=== PATIENT | female | born 1965 | race Caucasian/White ===

== ENCOUNTER 2016-09-20 01:17 | Inpatient (IN) | payer MEDICAID ==
[~2016-09-20] VITALS: Ht 154.9 cm; Wt 46.7 kg
[2016-09-20] VITALS (26 sets, daily range): BP systolic 86–130; BP diastolic 60–86; Ht 154.9 cm; Wt 46.7 kg
[~2016-09-20 01:17] MED LIST: BENTYL10 MG PO; CARAFATE1 G PO; DEPAKOTE500 MG PO; FLEXERIL10 MG PO; LEVAQUIN750 MG; LEVAQUIN750 MG PO; MOTRIN600 MG PO; NORCO 7.5-3251 EACH PO; TOPAMAX100 MG PO; TYLENOL 325 MG325 MG PO; ZANTAC150 MG PO
[2016-09-20 01:43] LABS: APPEARANCE CLEAR (CLEAR); BILIRUBIN NEGATIVE (NEGATIVE); COLOR YELLOW (YELLOW); GLUCOSE NEGATIVE (NEGATIVE); KETONE NEGATIVE (NEGATIVE); LEUKOCYTE ESTERASE NEGATIVE (NEGATIVE); NITRITE NEGATIVE (NEGATIVE); PROTEIN NEGATIVE (NEGATIVE); SPECIFIC GRAVITY 1.015 (1.005-1.020); UROBILINOGEN NORMAL (NORMAL)
[2016-09-20 01:50] LABS: UDS - AMPHET NEGATIVE QUAL (NEGATIVE); UDS - BARB NEGATIVE QUAL (NEGATIVE); UDS - BENZO NEGATIVE QUAL (NEGATIVE); UDS - COCAINE NEGATIVE QUAL (NEGATIVE); UDS - METH NEGATIVE QUAL (NEGATIVE); UDS - OPIATE NEGATIVE QUAL (NEGATIVE); UDS - PCP NEGATIVE QUAL (NEGATIVE); UDS - THC NEGATIVE QUAL (NEGATIVE)
[2016-09-20 02:32] LABS: BASOPHILS 0.2 % (0.0-2.0); EOSINOPHILS 1.8 % (0-7); HEMATOCRIT 40.1 % (36.0-48.0); HEMOGLOBIN 13.5 g/dL (12-16); IMMATURE GRANULOCYTES 0.2 % (0-5); LYMPHOCYTES 37.8 % (15-50); MCH 31.8 pg (26.0-34.0); MCHC 33.7 g/dL (31.0-37.0); MCV 94.4 fL (80.0-100.0); MEAN PLATELET VOLUME 10.7 fL (7.4-10.4); MONOCYTES 5.6 % (2-11); NEUTROPHILS 54.4 % (40-80); PLATELET COUNT 239 10x3/uL (130-400); RBC 4.25 10x6/uL (4.00-5.40); WBC 12.4 10x3/uL (4.8-10.8)
[2016-09-20 02:40] LABS: ALBUMIN 4.1 g/dL (3.4-5.0); ALKALINE PHOSPHATASE 108 U/L (46-116); ALT (SGPT) 46 U/L (10-68); BILIRUBIN - TOTAL 0.38 mg/dL (0.2-1.3); CALC OSMOLALITY 283 mosm/kg (275-300); CALCIUM 8.6 mg/dL (8.5-10.1); CARBON DIOXIDE 29.1 mmol/L (21.0-32.0); CHLORIDE - SERUM 100 mmol/L (98-107); CREATININE - SERUM 0.8 mg/dL (0.6-1.3); POTASSIUM - SERUM 3.4 mmol/L (3.5-5.1); PROTEIN - SERUM 8.3 g/dL (6.4-8.2); SODIUM 140 mmol/L (136-145); UREA NITROGEN 19 mg/dL (7-18); eGFR NON AFRICAN AMERICAN 80 mL/min (90-120)
[2016-09-20 02:42] LABS: GLUCOSE 150 mg/dL (74-106)
[2016-09-20 02:54] LABS: AMYLASE - SERUM 71 U/L (25-115); CREATINE KINASE 118 UL (21-215); LIPASE 184 U/L (73-393); PRO BNP 44 pg/mL (0-125); TROPONIN-I < 0.017 ng/mL (0.000-0.060)
[2016-09-20 02:55] LABS: PHENYTOIN (DILANTIN) 60.9 ug/mL (10.0-20.0)
--- NOTE | 2016-09-20 04:35 | NUR ---
REC'D TO ROOM 2302 FROM ER VIA STRETCHER. PT CONFUSED AND RESTLESS. SPEECH DIFFICULT TO UNDERSTAND, SEEMS TO BE HAVING HALLUCINATION, REACHING AT THINGS IN AIR. ADMITTED WITH DILANTIN TOXICITY - POISON CONTROL UPDATED, WILL REPEAT LEVELS Q4 HR. CM - NSR. POX 97% ON RA. ALARMS ON, C/L IN REACH.
--- NOTE | 2016-09-20 04:46 | NUR ---
UNABLE TO COMPLETE ADMIN HISTORY, PT NOT ANSWERING QUESTIONS, ONLY FOLLOWS FEW SIMPLE COMMANDS. NO FAMILY PRESENT AT THIS TIME. VSS. NO SIGN OF DISTRESS. FALL PRECAUTIONS INITIATED. NO VALUABLES, TSHIRT ON. ALARMS ON .
--- NOTE | 2016-09-20 05:01 | NUR ---
PT RESTING QUIETLY AT THIS TIME, NO SIGN OF DISTRESS.
--- NOTE | 2016-09-20 06:36 | NUR ---
PT SAID SHE NEEDED TO "PEE". ON BED MCINTYRE, NO UOP. VSS. NO SIGN OF DISTRESS. LAB PENDING.
--- NOTE | 2016-09-20 07:00 | NUR ---
Received report and assumed care of patient. Patient is currently in bed, restless. Speech is garbled. Unable to follow commands at this time. Vitals are stable. Sinus on CM. Right hand PIV infusing NS @ 100. See shift assessment flowsheet for all findings.
--- NOTE | 2016-09-20 08:07 | NUR ---
Spoke to Mehrdad from poison control. Update on dilantin level and patients condition.
--- NOTE | 2016-09-20 08:16 | NUR ---
here to see patient. Patient enable to communicate at this time. Speech remains garbled.
--- NOTE | 2016-09-20 09:28 | NUR ---
Is the patient Alert and Oriented? No 0 * How many steps to enter\exit or inside your home? 2 0 * PCP DR. VELAZCO 0 * Pharmacy [facility] AND [facility] * Preadmission Environment Home with Family 0 * ADLs Independent 0 * Equipment Cane Rolling Walker 0 * Other Equipment PATIENT HAS CANE AND WALKER BUT DOES NOT USE THEM 0 * List name and contact numbers for known caregivers / representatives who currently or will assist patient after discharge: SPOUSE: MITUL REDMOND [phone] FATHER IN LAW: GURVINDER REDMOND [phone] 0 * Community resources currently utilized None 0 * Additional services required to return to the preadmission environment? No 0 * Can the patient safely return to the preadmission environment? Yes 0 * Has this patient been hospitalized within the prior 30 days at any hospital? No 0 Grand Total: 0 PATIENT IS CONFUSED AND HER SPEECH IS NOT UNDERSTANDABLE. PATIENT'S SPOUSE, MITUL REDMOND IS HERE AND ANSWERING QUESTIONS. HE STATES SHE WAS LIVING AT HOME WITH HIM PRIOR TO ADMIT. HER PCP IS DR. VELAZCO. SHE GETS HER MEDS FROM [facility] AT [facility]. HER FATHER IN LAW, GURVINDER, IS AT THE BEDSIDE AND WILL BE AVAILABLE TO DRIVE HER HOME AT DISCHARGE. SHE HAS A WALKER AND CANE BUT DOES NOT USE THEM. PATIENTS SPOUSE STATES SHE HAD HOME HEALTH CARE ABOUT 4 YRS AGO BUT DOES NOT RECALL THE NAME OF THE AGENCY. THERE ARE 2 STEPS TO ENTER HER HOME.
--- NOTE | 2016-09-20 10:03 | NUR ---
Patients here, took patients debit card from belongings. Update given on patients condition. Admission history completed.
--- NOTE | 2016-09-20 11:26 | NUR ---
Patients speech remains garbled. Patient not following commands at this time.
--- NOTE | 2016-09-20 12:43 | NUR ---
GARY MORRIS GAVE PATIENT BATH. PT RECONNECTED TO . SINUS RHTYHM RATE OF 83. PT CAN FOLLOW COMMANDS AT THIS TIME. SPEECH IS GARBLED, ORIENTED TO SELF. REORIENTED TO TIME, PLACE AND SITUATION.
--- NOTE | 2016-09-20 13:43 | NUR ---
Critical Pheno level from lab called, trending back down.
--- NOTE | 2016-09-20 15:55 | NUR ---
Patient requesting water, small sips allowed. Tolerating well.
--- NOTE | 2016-09-20 17:44 | NUR ---
Patients in room. Patient is more coherent at this time. Speech is still garbled. Oriented to person and time. Unable to relate situation. Pt requesting food and drink. Will request from Maria Del Carmen when he rounds.
--- NOTE | 2016-09-20 20:00 | NUR ---
REPORT RECEIVED AND CARE ASSUMED. JUST AWAKENED, SHE IS CONFUSED, SPEECH GARBLED, ABLE TO LAY DOWN WHEN ASKED TO, BUT DOESN'T STAY BUT BRIEFLY. IV IN RIGHT AC PATENT WITH NS @ 125CC/HR/ SEE ASSESSMENT FLOW SHEET FOR ALL DETAILS.
--- NOTE | 2016-09-20 21:59 | NUR ---
ASSISTED ON BEDPAN- VOIDED 250 CC YELLOW URINE.
--- NOTE | 2016-09-20 23:00 | NUR ---
CRITICAL DILANTIN LEVEL=57.7 TRENDING UP SLIGHTLY FROM EARLIER ONE.
[2016-09-21] VITALS (23 sets, daily range): BP systolic 86–115; BP diastolic 46–92
--- NOTE | 2016-09-21 02:46 | NUR ---
RESTING QUIETLY IN BED WITH EYES CLOSED. MO DISTRES NOTED.
--- NOTE | 2016-09-21 03:30 | NUR ---
REQUESTING TO GO TO BATHROOM. ASSISTED ON BEDPAN. UNABLE TO VOID.
[2016-09-21 04:09] LABS: BASOPHILS 0.2 % (0.0-2.0); EOSINOPHILS 2.1 % (0-7); HEMATOCRIT 38.1 % (36.0-48.0); HEMOGLOBIN 12.6 g/dL (12-16); IMMATURE GRANULOCYTES 0.2 % (0-5); LYMPHOCYTES 45.9 % (15-50); MCH 31.3 pg (26.0-34.0); MCHC 33.1 g/dL (31.0-37.0); MCV 94.8 fL (80.0-100.0); MEAN PLATELET VOLUME 11.1 fL (7.4-10.4); MONOCYTES 6.3 % (2-11); NEUTROPHILS 45.3 % (40-80); PLATELET COUNT 214 10x3/uL (130-400); RBC 4.02 10x6/uL (4.00-5.40); RDW 14.2 % (11.5-14.5); WBC 9.5 10x3/uL (4.8-10.8)
[2016-09-21 04:36] LABS: ALBUMIN 3.5 g/dL (3.4-5.0); ALKALINE PHOSPHATASE 97 U/L (46-116); ALT (SGPT) 42 U/L (10-68); CALCIUM 8.2 mg/dL (8.5-10.1); CARBON DIOXIDE 25.4 mmol/L (21.0-32.0); CHLORIDE - SERUM 102 mmol/L (98-107); CREATININE - SERUM 0.7 mg/dL (0.6-1.3); POTASSIUM - SERUM 3.5 mmol/L (3.5-5.1); PROTEIN - SERUM 7.3 g/dL (6.4-8.2); SODIUM 137 mmol/L (136-145); eGFR NON AFRICAN AMERICAN > 90 mL/min (90-120)
[2016-09-21 04:55] LABS: CALC OSMOLALITY 273 mosm/kg (275-300); GLUCOSE 99 mg/dL (74-106); UREA NITROGEN 12 mg/dL (7-18)
[2016-09-21 04:56] LABS: PHENYTOIN (DILANTIN) 45.8 ug/mL (10.0-20.0)
--- NOTE | 2016-09-21 04:59 | NUR ---
CRITICAL PHENYTOIN LEVEL CALLED FROM LAB= 45.8. TRENDING DOWN FROM PREVIOUS.
--- NOTE | 2016-09-21 08:26 | NUR ---
RESTING IN BED AT THIS TIME. NO ACUTE DISTRESS NOTED. RESPIRATIONS AT STEADY AND UNLABORED RATE. WILL CONTINUE PLAN OF CARE.
--- NOTE | 2016-09-21 11:03 | NUR ---
UP IN BED AWAKE AT THIS TIME. DENIES ANY NEEDS. NOTED PT IS CONFUSED. FREQUENT REORIENTATION PROVIDED. WILL CONTINUE PLAN OF CARE.
--- NOTE | 2016-09-21 13:31 | NUR ---
IV TO RIGHT FOREARM INFILTRATED, DC. NEW IV PLACED TO LEFT FOREARM X 1 ATTEMPT, 20G, FLUSHES WELL. NO ACUTE DISTRESS NOTED. WILL CONTINUE PLAN OF CARE.
--- NOTE | 2016-09-21 15:14 | NUR ---
NOTED PT DILANTIN LEVEL HAS INCREASED SINCE 1000 LAB DRAW, PT ROOM ASSESSED AT THIS TIME, LOOKED THROUGH ITEMS WITH ASSIST AND SUPERVISION FROM ANOTHER NURSE. DID NOT FIND ANY MEDS WITHIN ITEMS. WILL CALL TO NOTIFY PHYSICIAN AT THIS TIME OF INCREASED LAB LEVELS.
--- NOTE | 2016-09-21 15:29 | NUR ---
CALLED DR RODRIGUEZ CELL TO NOTIFY OF INCREASING DILANTIN LEVEL FOR PT WITH NO EXTERNAL REASONING FOR WHY IT HAS INCREASED. NOTED NEW ORDER TO CHANGE DILANTIN CHECK TO DAILY INSTEAD OF Q4H STATING THE DILANTIN NEEDS TO METABOLIZE FROM HER SYSTEM. WILL CHANGE LAB ORDERS AT THIS TIME. WILL CONTINUE PLAN FO CARE.
--- NOTE | 2016-09-21 15:47 | NUR ---
NOTED HEARD MOVEMENT IN ROOM AT THIS TIME, WALKED INTO ROOM TO ASSESS SITUATION AND NOTED PT WAS GETTING SELF UP FROM FLOOR WITH ASSIST FROM SIDE RAILING FROM BED. WHEN ASKED PT WHAT HAD HAPPENED SHE STATED SHE WAS TRYING TO GET TO THE BEDSIDE TOILET IN ROOM. NOTED THERE WAS NO BEDSIDE TOILET IN ROOM. NOTED THIS NURSE HAS BEEN DOING FREQUENT NEURO CHECKS FOR PT IN RELATION TO ADMISSION ORDERS. NOTED THERE IS NO CHANGE IN NEURO STATUS FOR PT. PT IS STILL EXPERIENCING CONFUSION REQUIRING FREQUENT REORIENTATION. NO CHANGE IN ORIENTATION. NOTED PT HAS LACERATION TO LEFT SIDE OF FOREHEAD. SITE CLEANED AND DRESSINGS APPLIED TO SITE. DR RODRIGUEZ NOTIFIED AND IS ON FLOOR PLACING ORDERS AT THIS TIME. ALSO NOTED PT HAS BRUISE TO UPPER MID SECTION OF BACK TO THE RIGHT SIDE OF SPINE. PT IS COMPLAINING OF BACK DISCOMFORT. DR RODRIGUEZ NOTIFIED. PROCESS EXPERT NOTIFIED. CHARGE NURSE NOTIFIED. PT , MITUL CALLED AND NOTIFIED AT THIS TIME. BED ALARM WAS ON DURING INCIDENT HOWEVER DID NOT GO OFF, SETTINGS CHANGED TO BED ALARM AND ALARM IS NOW FUNCTIONING PROPERLY. NONSKID SOCKS IN PLACE WELL CALL LIGHT IN REACH DURING TIME OF INCIDENT. WILL CONTINUE TO OBSERVE.
--- NOTE | 2016-09-21 17:18 | NUR ---
PT AT BEDSIDE AT THIS TIME. UPDATE GIVEN.
--- NOTE | 2016-09-21 18:00 | NUR ---
LEFT FLOOR AT THIS TIME VIA BED ACCOMPANIED BY HOSPITAL STAFF FOR CT. NO ACUTE DISTRESS NOTED. WILL CONTINUE PLAN OF CARE.
--- NOTE | 2016-09-21 18:25 | NUR ---
RETURNED AT THIS TIME FROM CT VIA BED ACCOMPANIED BY HOSPITAL STAFF. NO ACUTE DISTRESS NOTED. WILL CONTINUE PLAN OF CARE.
--- NOTE | 2016-09-21 19:45 | NUR ---
REPORT RECEIVED AND CARE ASSUMED. AWAKE AND ALERT, BUT STILL CONFUSED TO PLACE, TIME AND SITUATION. APPLIED ANOTHER DRESSING TO ABRASION ABOVE LEFT EYE. PATIENT HAD REMOVED PREVIOUS ONE. IV PATENT IN LEFT FOREARM WITH NS AT 125CC/HR. REQUESTING BEDPAN TO URINATE. SEE ASSESSMENT FLOW SHEET FOR FURTHER DETAILS. WILL CONTINUE TO MONITOR CLOSELY.
--- NOTE | 2016-09-21 22:15 | NUR ---
PATIENT CONSTANTLY TRYING TO GET OUT OF BED, WANTING TO GO SMOKE.
[2016-09-22] VITALS (20 sets, daily range): BP systolic 91–155; BP diastolic 63–90
--- NOTE | 2016-09-22 04:45 | NUR ---
COMPLETE BEDBATH GIVEN. SHE HAS BEEN VERY RESTLESS TONIGHT. WANTS TO GET OUT OF BED AND HELP THE STAFF WORK.
[2016-09-22 04:59] LABS: BASOPHILS 0.1 % (0.0-2.0); HEMATOCRIT 36.5 % (36.0-48.0); HEMOGLOBIN 12.4 g/dL (12-16); IMMATURE GRANULOCYTES 0.2 % (0-5); LYMPHOCYTES 45.8 % (15-50); MCH 31.7 pg (26.0-34.0); MCV 93.4 fL (80.0-100.0); MEAN PLATELET VOLUME 10.9 fL (7.4-10.4); NEUTROPHILS 44.9 % (40-80); PLATELET COUNT 201 10x3/uL (130-400); RBC 3.91 10x6/uL (4.00-5.40); WBC 8.7 10x3/uL (4.8-10.8)
--- NOTE | 2016-09-22 05:10 | NUR ---
AM LAB DRAWN PER TECH. ASSISTED ON BEDPAN NUMEROUS TIMES TONIGHT.
[2016-09-22 05:23] LABS: ALBUMIN 3.6 g/dL (3.4-5.0); ALKALINE PHOSPHATASE 90 U/L (46-116); ALT (SGPT) 38 U/L (10-68); BILIRUBIN - TOTAL 0.62 mg/dL (0.2-1.3); CALC OSMOLALITY 275 mosm/kg (275-300); CALCIUM 8.3 mg/dL (8.5-10.1); CHLORIDE - SERUM 105 mmol/L (98-107); CREATININE - SERUM 0.6 mg/dL (0.6-1.3); GLUCOSE 97 mg/dL (74-106); POTASSIUM - SERUM 3.4 mmol/L (3.5-5.1); PROTEIN - SERUM 7.5 g/dL (6.4-8.2); SODIUM 140 mmol/L (136-145); UREA NITROGEN 5 mg/dL (7-18); eGFR NON AFRICAN AMERICAN > 90 mL/min (90-120)
[2016-09-22 05:24] LABS: PHENYTOIN (DILANTIN) 51.6 ug/mL (10.0-20.0)
--- NOTE | 2016-09-22 07:30 | NUR ---
PT NOTED PULLING AT TUBING AND DRESSINGS, BILATERAL SOFT WRIST RESTRAINTS PLACED AT THIS TIME FOR PT SAFETY.
--- NOTE | 2016-09-22 08:54 | NUR ---
INCREASE IN CONFUSION NOTED, PT STATED SHE COULD SEE HER AND SHE HAD BEEN WAITING FOR HIM TO PICK HER UP SO THEY COULD GO SHOPPING. PT WAS NOT IN ROOM OR IN HOSPITAL AT TIME AND LOCATION WHICH SHE WAS REFERRING TO WHERE HER WAS STANDING; THERE WAS NO PERSON THERE. REORIENTATION PROTIVED, PT REFUSED TO BELIEVE SHE DID NOT SEE HER . ALSO AT THAT TIME NOTED PT STATED SHE SAW A RED VAN AND WAS WANTING TO SEE WHO WAS DRIVING IT. REORIENTATION PROVIDED AGAIN, PT REFUSED TO BELIEVE REORIENTATION. WILL CONTINUE TO OBSERVE.
--- NOTE | 2016-09-22 10:02 | NUR ---
LOUISE PLACED AT THIS TIME PER ORDERS, 18F. NOTED URINE IS CLEAR YELLOW. SECURED TO RIGHT LEG. WILL CONTINUE PLAN OF CARE.
--- NOTE | 2016-09-22 12:07 | NUR ---
LYING IN BED RESTING AT THIS TIME. NO ACUTE DISTRESS NOTED. STILL NOTED CONFUSED. REORIENTATION PROVIDED FREQUENTLY. WILL CONTINUE PLAN FO CARE.
--- NOTE | 2016-09-22 14:09 | NUR ---
PT PULLED LOUISE OUT ALTHOUGH BILATERAL SOFT WRIST RESTRAINTS WERE SECURED IN PLACE. WILL REPLACE LOUISE AT THIS TIME. WILL CONTINUE PLAN OF CARE.
--- NOTE | 2016-09-22 14:16 | NUR ---
LOUISE REPLACED AT THIS TIME. URINE CLEAR YELLOW. SECURED TO RIGHT LEG. NO ACUTE DISTRESS NOTED. WILL CONTINUE PLAN OF CARE.
--- NOTE | 2016-09-22 14:34 | NUR ---
PT REMOVED SCDS. WHILE REPLACING SCDS PT BECAME AGGRESSIVE AND COMBATIVE. KICKING AT STAFF AND YELLING AT STAFF. ATTEMPTED TO CALM PT DOWN. PRN ATIVAN ADMIN AT THIS TIME. PT NOW RESTING QUIETLY, RESPIRATIONS STEADY AND UNLABORED. WILL CONTINUE PLAN OF CARE.
--- NOTE | 2016-09-22 15:21 | NUR ---
PT AT BEDSIDE, UPDATE GIVEN. NO ACUTE DISTRESS NOTED. WILL CONTINUE PLAN FO CARE.
--- NOTE | 2016-09-22 17:41 | NUR ---
AWAKE IN BED AT THIS TIME. STILL RESTLESS. REORIENTATION PROVIDED FREQUENTLY. WILL CONTINUE PLAN OF CARE.
--- NOTE | 2016-09-22 17:46 | NUR ---
SPOKE WITH PT . PASSCODE SETUP STEVE.
--- NOTE | 2016-09-22 18:20 | NUR ---
NOTED ALTHOUGH BILATERAL SOFT WRIST RESTRAINTS WERE SECURED, PT PULLED LOUISE OUT, BULB INTACT. WHEN ASKED PT WHAT HAD HAPPENED SHE STATED "I DIDN'T DO ANYTHING" REORIENTATION PROVIDED. WILL CONTINUE PLAN OF CARE.
--- NOTE | 2016-09-22 19:00 | NUR ---
REPORT RECIEVED, INITIAL ASSESSMENT COMPLETE, PLEASE SEE FLOW SHEETS FOR DETAILS. S1S2 AUSCULTATED, NSR AT REGULAR RATE NOTED. LUNGS CLEAR BUT DIMINISHED IN LOWER LOBES. BOWEL SOUNDS ACTIVE X4 QUADRANTS. BANDAGE NOTED ABOVE LEFT EYE WITH BRUSING ALL AROUND EYE AND BANDAGE. BRUISING NOTED ON BILATERAL ARMS WHICH ARE SECURED IN SOFT WRIST RESTRAINTS. IV TO LEFT FOREARM NOT INFUSING CORRECTLY. STOPPED IV FLUIDS AND WILL RESITE IV. PT DENIES PAIN BUT DEMANDED SCD'S KAREEM OFF BECUASE THEY WERE BOTHERING HER. THIS WAS DONE AFTER EXPLAINING WHAT THEY WERE FOR AND PT CONTINUED TO REFUSE. BED LOW AND LOCKED, CALL LIGHT IN REACH. VSS, WILL CONTINUE TO MONITOR.
--- NOTE | 2016-09-22 20:45 | NUR ---
NEW PIV STARTED ON FIRST TRY TO RIGHT UPPER ARM. 22 G CATHETER. NEW TUBING AND BAG OF NORMAL SALINE INFUSING AT 125 ML/HR. DATE TIME AND INITIALS ON DRESSING. BED LOW AND LOCKED, CALL LIGHT IN REACH. WILL CONTINUE TO MONITOR.
--- NOTE | 2016-09-22 21:18 | NUR ---
PT TRYING TO GET OOB. GAVE WATER TO DRINK, REFUSED ORAL CARE AND SCD'S. REPOSITIONED WRIST RESTRAINTS AND SECURED WITH QUICK REALEASE KNOTS. MOVED PT UP IN BED. PT DENIES PAIN ATT, BUT SAYS SHE WANTS SOME SLIPPERS TO GET OUT OF BED AND FOR ME TO GET OUT OF HER HOUSE. PT REMAINS CONFUSED AND RESTRAINED DUE TO PULLING AT LINES AND FOR OTHER SAFETY REASONS. BED LOW AND LOCKED, CALL LIGHT IN REACH. WILL CONTINUE TO MONITOR.
--- NOTE | 2016-09-22 23:00 | NUR ---
REASSESSMENT COMPLETE, PLEASE SEE FLOW SHEETS FOR DETAILS. RESTRAINTS CHECKED AND REAPPLIED WITH QUICK RELEASE KNOTS. HOB AT 30 DEGREES. BED LWO AND LOCKED, CALL LIGHT IN REACH. VSS, NO S&S OF ACUTE DISTRESS NOTED. NSR NOTED ON MONITOR. WILL CONTINUE TO MONITOR.
[2016-09-23] VITALS (24 sets, daily range): BP systolic 93–139; BP diastolic 60–89
--- NOTE | 2016-09-23 01:00 | NUR ---
ORAL CARE OFFERED AND REFUSED. PT HAS BEEN TURNING HERSELF. BED LOW AND LOCKED, CALL LIGHT IN REACH. VSS, WILL CONTINUE TO MONITOR.
--- NOTE | 2016-09-23 02:55 | NUR ---
REASSESSMENT COMPLETE, PLEASE SEE FLOW SHEETS FOR DETAILS. BED LOW AND LOCKED. RESTRAINTS CHECKED AND TIED WITH QUICK RELEASE KNOTS. VSS, WILL CONTINUE TO MONITOR.
[2016-09-23 03:46] LABS: BASOPHILS 0.2 % (0.0-2.0); EOSINOPHILS 0.6 % (0-7); HEMATOCRIT 36.7 % (36.0-48.0); HEMOGLOBIN 12.4 g/dL (12-16); IMMATURE GRANULOCYTES 0.2 % (0-5); LYMPHOCYTES 41.4 % (15-50); MCH 31.3 pg (26.0-34.0); MCHC 33.8 g/dL (31.0-37.0); MCV 92.7 fL (80.0-100.0); MEAN PLATELET VOLUME 11.2 fL (7.4-10.4); MONOCYTES 7.5 % (2-11); NEUTROPHILS 50.1 % (40-80); PLATELET COUNT 210 10x3/uL (130-400); RBC 3.96 10x6/uL (4.00-5.40); RDW 13.8 % (11.5-14.5); WBC 10.1 10x3/uL (4.8-10.8)
[2016-09-23 04:05] LABS: ALBUMIN 3.8 g/dL (3.4-5.0); ALKALINE PHOSPHATASE 86 U/L (46-116); ALT (SGPT) 40 U/L (10-68); BILIRUBIN - TOTAL 0.61 mg/dL (0.2-1.3); CALC OSMOLALITY 280 mosm/kg (275-300); CALCIUM 8.4 mg/dL (8.5-10.1); CHLORIDE - SERUM 104 mmol/L (98-107); CREATININE - SERUM 0.6 mg/dL (0.6-1.3); GLUCOSE 110 mg/dL (74-106); PROTEIN - SERUM 7.8 g/dL (6.4-8.2); SODIUM 142 mmol/L (136-145); UREA NITROGEN 5 mg/dL (7-18); eGFR NON AFRICAN AMERICAN > 90 mL/min (90-120)
--- NOTE | 2016-09-23 05:00 | NUR ---
ORAL CARE REFUSED. TURNS SELF. VERY CONFUSED AND CURSING AT STAFF. VSS, BED LOW AND LOCKED, CALL LIGHT IN REACH. WILL CONTINUE TO MONITOR.
--- NOTE | 2016-09-23 07:12 | NUR ---
REPORT RECD PT CARE ASSUMED. PT IS CONFUSED/DISORIENTED, DOES NOT ANSWER QUESTIONS OR FOLLOW COMMMANDS. SEE SHIFT ASSESSMENT FOR FURTHER DETAILS. S1S2 NOTED SR PER CM. PPP. VSS. WILL MONITOR.
--- NOTE | 2016-09-23 08:50 | NUR ---
PT IS AGGITATED AT THIS TIME. PT SPEECH REMAINS GARBLED AND DIFFICULT TO UNDERSTAND. PRN MEDICATION ADMINISTERED. SEE EMAR.
--- NOTE | 2016-09-23 09:13 | NUR ---
Nutrition follow-up: Diet: regular PO intake remains poor due to continued confusion labs reviewed +BM Wt: 102# RDN will order Boost with meals to increase kcal/protein intake. RDN following.
--- NOTE | 2016-09-23 10:00 | NUR ---
WARM BLANKET APPLIED TO PT. PT RESTING AT THIS TIME.
--- NOTE | 2016-09-23 12:03 | NUR ---
PT RECEIVES BED BATH AND COMPLETE LINEN CHANGE. PT REAMAINS ALTERED, SPEECH IS DIFFICULT TO UNDERSTAND. PT SAT UP IN BED AND ATTEMPTED TO FEED LUNCH, PT DOES NOT HAVE TEETH, DOES BETTER WITH SOUP. TOLERATING SOUP AND LIQUIDS WELL.
--- NOTE | 2016-09-23 12:21 | NUR ---
PT FRIEND AT BEDSIDE. PT FRIEND DOES BETTER SPEAKING WITH AND UNDERSTANDING PT. POSSIBLY PT SPEAKS IN COLOQUIAL DIALECT.
--- NOTE | 2016-09-23 14:00 | NUR ---
PT RESTING IN BED. VSS.
--- NOTE | 2016-09-23 16:21 | NUR ---
PT COMMINICATES SOME BUT MAKES MANY ATTEMPTS TO GET OUT OF BED WITHOUT HELP. PT IS CAPABLE OF FOLLOWING DIRECTIONS THOUGH SHE OFTEN DOES NOT. PT PLACED ON BEDPAN AT 1615, PT IS NOW YELLING DISRUPTIVELY ABOUT USING THE BATHROOM AND WANTING TO GET UP.
--- NOTE | 2016-09-23 17:25 | NUR ---
PT PROVIDED WITH DINNER TRAY AND FED DINNER. PT EATS ABOUT 50%, IMPROVMENT FROM BREAKFAST.
--- NOTE | 2016-09-23 19:00 | NUR ---
REPORT RECIEVED, INITIAL ASSESSMENT COMPLETE, PLEASE SEE FLOW SHEETS FOR DETAILS. RESTRAINTS CHECKED AND REATTACHED WITH QUICK RELEASE KNOTS. BED LOW AND LOCKED, CALL LIGHT IN REACH. VSS ATT, DENIES PAIN/NEEDS, WILL CONTINUE TO MONITOR. STILL REFUSED SCD'S.
--- NOTE | 2016-09-23 20:43 | NUR ---
PT COMPLAINING OF HEAD ACHE, ALSO ANXIOUS AND CRYING. GAVE ATIVAN PER ORDERS. WILL CONTINUE TO MONITOR.
--- NOTE | 2016-09-23 20:54 | NUR ---
ORAL CARE PROVIDED. PT OPENS DEYES TO SPEACH. DENIED PAIN, FOLLOWS COMMANDS. ALSO PROVIDED FACIAL CLEANSING. BED LOW AND LOCKED, CALL LIGHT IN REACH. VSS, WILL CONTINUE TO MONITOR.
--- NOTE | 2016-09-23 20:56 | NUR ---
PT EXIBITING MORE CALM BEHAVIOR, GAVE BREAK IN RESTRAINTS FOR SKIN INTEGRITY. PROVIDED WARM BLANKET. VSS. BED LOW AND LOCKED, ALARM ON, PT GAVE VERBAL ACKNOWLEDGEMENT OF HOW TO USE CALL LIGHT, WHICH IS IN REACH. VSS, WILL CONTINUE TO MONITOR.
--- NOTE | 2016-09-23 23:00 | NUR ---
REASSESSMENT COMPLETE, PLEASE SEE FLOW SHEETS FOR DETAILS. BED LOW AND LOCKED, CALL LIGHT IN REACH. DENIES PAIN/NEEDS ATT. VSS, WILL CONTINUE TO MONITOR.
[2016-09-24] VITALS (25 sets, daily range): BP systolic 89–123; BP diastolic 49–96
--- NOTE | 2016-09-24 01:21 | NUR ---
PT SLEEPING, WOKE EASILY AND FOLLOWED COMMANDS. DISORIENTED TO TIME. VSS, DENIES PAIN/NEEDS ATT, BED LOW AND LOCKED, ALARM ON, CALL LIGHT IN REACH. WILL CONTINUE TO MONITOR.
--- NOTE | 2016-09-24 02:55 | NUR ---
REASSESSMENT COMPLETE, PLEASE SEE FLOW SHEETS FOR DETAILS. VSS, BED LOW AND LOCKED CALL LIGHT IN REACH, GAVE BREAK FOR RESTRAINTS. BED ALARM ON. WILL CONTINUE TO MONITOR. DENIES PAIN/NEEDS ATT.
--- NOTE | 2016-09-24 05:00 | NUR ---
PT HAD ACCIDENT IN BED, THIS WAS CLEANED UP AND NEW LINENS PROVIDED POST FULL BED BATH. ASKED TO USE BED MCINTYRE AFTER THAT AND PRODUCED 250ML CONCENTRATED URINE. VSS ATT, BED LOW AND LOCKED, CALL LIGHT IN REACH. RESTRAINTED CHECKED AND RELEASED THEN RETIED WITH QUICK RELEASE KNOTS. WILL CONTINUE TO MONITOR.
[2016-09-24 05:09] LABS: BASOPHILS 0.3 % (0.0-2.0); EOSINOPHILS 2.7 % (0-7); HEMATOCRIT 38.7 % (36.0-48.0); HEMOGLOBIN 12.9 g/dL (12-16); IMMATURE GRANULOCYTES 0.1 % (0-5); LYMPHOCYTES 58.2 % (15-50); MCH 31.1 pg (26.0-34.0); MCHC 33.3 g/dL (31.0-37.0); MCV 93.3 fL (80.0-100.0); MEAN PLATELET VOLUME 10.9 fL (7.4-10.4); MONOCYTES 5.3 % (2-11); NEUTROPHILS 33.4 % (40-80); PLATELET COUNT 201 10x3/uL (130-400); RBC 4.15 10x6/uL (4.00-5.40); RDW 13.9 % (11.5-14.5)
[2016-09-24 05:17] LABS: CALCIUM 8.8 mg/dL (8.5-10.1); CREATININE - SERUM 0.7 mg/dL (0.6-1.3); eGFR NON AFRICAN AMERICAN > 90 mL/min (90-120)
[2016-09-24 05:20] LABS: WBC 7.5 10x3/uL (4.8-10.8)
[2016-09-24 06:02] LABS: ALBUMIN 3.5 g/dL (3.4-5.0); ALKALINE PHOSPHATASE 77 U/L (46-116); ALT (SGPT) 39 U/L (10-68); BILIRUBIN - TOTAL 0.37 mg/dL (0.2-1.3); CARBON DIOXIDE 28.4 mmol/L (21.0-32.0); CHLORIDE - SERUM 104 mmol/L (98-107); GLUCOSE 94 mg/dL (74-106); PROTEIN - SERUM 7.4 g/dL (6.4-8.2); SODIUM 141 mmol/L (136-145)
[2016-09-24 06:03] LABS: CALC OSMOLALITY 278 mosm/kg (275-300); PHENYTOIN (DILANTIN) 45.9 ug/mL (10.0-20.0); POTASSIUM - SERUM 3.3 mmol/L (3.5-5.1); UREA NITROGEN 7 mg/dL (7-18)
--- NOTE | 2016-09-24 07:00 | NUR ---
PT REPORT REC'D, PT CARE ASSUMED. PT SITTING UP IN BED. NO C/O PAIN, VSS. RIGHT UPPER ARM PIV WITH NS INFUSING AT 125ML/HR. LEFT EYE BRUISING, GENERALIZED SCABS/SORES. BEDSIDE COMMODE NEEDED. SHIFT ASSESSMENT COMPLETED, SEE FLOW SHEET. ROOM FREE OF CLUTTER, CALL LIGHT IN REACH. BED LOCKED IN LOWEST POSITION, BED ALARM ACTIVATED. WILL CONTINUE TO MONITOR PT.
--- NOTE | 2016-09-24 08:00 | NUR ---
COMPLETE BATH GIVEN, COMPLETE LINEN CHANGE. PT SITTING UP IN CHAIR. NO C/O PAIN, VSS. WILL CONTINUE TO MONITOR PT.
--- NOTE | 2016-09-24 09:25 | NUR ---
PT FAMILY AT THE BEDSIDE, ALL QUESTIONS ANSWERED, VSS, WILL CONTINUE TO MONITOR PT.
--- NOTE | 2016-09-24 12:13 | NUR ---
PT SITTING UP IN BED, NO C/O PAIN, VSS. REASSESSMENT COMPLETED, SEE FLOW SHEET. ROOM FREE OF CLUTTER, CALL LIGHT IN REACH, WILL CONTINUE TO MONITOR PT.
--- NOTE | 2016-09-24 13:08 | NUR ---
DR. RODRIGUEZ AT THE BEDSIDE.
--- NOTE | 2016-09-24 15:00 | NUR ---
DR. MARADIAGA AT THE BEDSIDE
--- NOTE | 2016-09-24 15:05 | NUR ---
PT SITTING UP IN BED, NO C/O PAIN, VSS. REASSESSMENT COMPLETED, SEE FLOW SHEET. ROOM FREE OF CLUTTER, BED ALARM ACTIVATED, WILL CONTINUE TO MONITOR PT.
--- NOTE | 2016-09-24 17:00 | NUR ---
DELIVERED PT DINNER TRAY, PT RESTING WITH EYES CLOSED, VSS, WILL CONTINUE TO MONITOR PT.
--- NOTE | 2016-09-24 19:20 | NUR ---
REPORT RECIEVED. ASSESSMENT COMPELTE PER FLOW SHEET. VSS. PT SLEEPING COMFORTABLY. WILL CONTINUE TO MONITOR.
--- NOTE | 2016-09-24 21:17 | NUR ---
NO VISITORS AT THIS TIME. PT SLEEPING COMFORTABLY. WILL CONTINUE TO MONITOR
[2016-09-25] VITALS (24 sets, daily range): BP systolic 95–131; BP diastolic 52–111
--- NOTE | 2016-09-25 01:17 | NUR ---
GIVEN BB LINEN CHANGE PER REQUEST. DENIES FURTHER NEEDS. WILL CONTINUE TO MONTIOR.
--- NOTE | 2016-09-25 03:35 | NUR ---
REASSESSMENT COMPLET EPER FLOW SHEET. VSS. NO NEW CHANGES. WILL CONTINUE TO MONITOR.
[2016-09-25 04:18] LABS: BASOPHILS 0.2 % (0.0-2.0); EOSINOPHILS 1.6 % (0-7); HEMATOCRIT 38.3 % (36.0-48.0); HEMOGLOBIN 12.7 g/dL (12-16); IMMATURE GRANULOCYTES 0.3 % (0-5); LYMPHOCYTES 46.2 % (15-50); MCH 31.4 pg (26.0-34.0); MCHC 33.2 g/dL (31.0-37.0); MCV 94.6 fL (80.0-100.0); MEAN PLATELET VOLUME 11.2 fL (7.4-10.4); NEUTROPHILS 44.7 % (40-80); PLATELET COUNT 217 10x3/uL (130-400); RBC 4.05 10x6/uL (4.00-5.40)
[2016-09-25 04:21] LABS: WBC 11.1 10x3/uL (4.8-10.8)
[2016-09-25 04:49] LABS: ALBUMIN 3.7 g/dL (3.4-5.0); ALKALINE PHOSPHATASE 76 U/L (46-116); ALT (SGPT) 40 U/L (10-68); BILIRUBIN - TOTAL 0.26 mg/dL (0.2-1.3); CALCIUM 8.6 mg/dL (8.5-10.1); CARBON DIOXIDE 32.7 mmol/L (21.0-32.0); CHLORIDE - SERUM 103 mmol/L (98-107); CREATININE - SERUM 0.8 mg/dL (0.6-1.3); POTASSIUM - SERUM 3.4 mmol/L (3.5-5.1); PROTEIN - SERUM 7.7 g/dL (6.4-8.2); SODIUM 141 mmol/L (136-145); eGFR NON AFRICAN AMERICAN 80 mL/min (90-120)
[2016-09-25 04:58] LABS: CALC OSMOLALITY 281 mosm/kg (275-300); GLUCOSE 58 mg/dL (74-106); PHENYTOIN (DILANTIN) 42.3 ug/mL (10.0-20.0); UREA NITROGEN 20 mg/dL (7-18)
--- NOTE | 2016-09-25 05:21 | NUR ---
FAMILY CALLED GIVEN UPDATE. NO NEW CHANGES. VSS. CALL TRANSFERED IN ROOM. WILL CONTINUE TO MONITOR
--- NOTE | 2016-09-25 07:15 | NUR ---
REC'D REPORT AND RESUMED CARE, AWAKE AND CONFUSED, O2 VIA ROOM AIR, VSS, LEFT EY ORBIT WITH BRUISING, STATES SHE DOES NOT KNOW HOW IT HAPPENED, INDEPENDENT WITH REPOSITIONING, DENIES PAIN, ASSESSMENT COMPLETE PER FLOWSHEET, CALL LIGHT IN REACH, VOCIES NO NEEDS AT THIS TIME
--- NOTE | 2016-09-25 07:30 | NUR ---
BREAKFAST TRAY TO BEDSIDE, IDEPENDENT WITH SET UOP AND EATING
--- NOTE | 2016-09-25 08:20 | NUR ---
I HAVE CONTACTED APS AT AT THE REQUEST OF DR. VAUGHN MARADIAGA. I HAVE CONTACTED APS AT AND THEY STATE THEY WILL MAKE A REPORT AND HAVE SOMEONE COME TALK WITH HER. I HAVE VISITED WITH THE PATIENT AND SUGGESTED THAT SHE HAVE HOME HEALTH AT DISCHARGE TO ASSIT WITH HER MEDICATION. SHE IS IN AGREEMENT WITH HOME HEALTH AT DISCHARGE. I HAVE ATTEMPTED TO CONTACT HER , MITUL, AT [phone]. I HAVE LEFT A MESSAGE FOR HIM TO CONTACT ME TO DISCUSS HOME HEALTH AT DISCHARGE. CM TO FOLLOW.
--- NOTE | 2016-09-25 08:33 | NUR ---
Nutrition follow-up: Diet: Mechanical soft with thin liquids PO intake ~75% of last 2 meals Labs reviewed Wt: 102# Will continue to provide food choices and honor food preferences within diet restrictions. RDN following.
--- NOTE | 2016-09-25 09:00 | NUR ---
AM MEDS GIVEN WITHOUT DIFFICULTY
--- NOTE | 2016-09-25 09:21 | NUR ---
PATIENT'S , MITUL, RETURNED MY CALL. HE STATES HE IS OK WITH HAVING HOME HEALTH AT DISCHARGE. CM TO FOLLOW.
--- NOTE | 2016-09-25 11:00 | NUR ---
ASSESSMENT COMPLETE NO ACUTE CHANGE FROM PREVIOUS, VSS, UP IN CHAIR READING NEWS PAPER, CALL LIGHT IN REACH, NO OTHER NEEDS AT THIS TIME
--- NOTE | 2016-09-25 12:15 | NUR ---
LUNCH TRAY TO BEDSIDE, INDEPENDENT WITH SET UP AND EATING
--- NOTE | 2016-09-25 13:45 | NUR ---
SPOKE WITH ROGERS WITH CASE MANAGEMENT, STATES THAT SHE HAS SPOKEN WITH APS AND THEY WILL BE COMING TO SEE PATIENT AND SPOUSE RE: HOME HEALTH FOR MEDICATION REGULATION AT HOME
--- NOTE | 2016-09-25 15:00 | NUR ---
OOB IN CHAIR, ASSESSMENT COMPLETED, NO ACUTE CHANGE FROM PREVIOUS, VSS, DENIES PAIN, CALL LIGHT IN REACH, VOICES NO NEEDS AT THIS TIME
--- NOTE | 2016-09-25 15:15 | NUR ---
SPOUSE AT BEDSIDE, PATIENT TEARFUL, STATES WANTS TO GO HOME, STATUS UPDATED, VOICES NO NEEDS AT THIS TIME
--- NOTE | 2016-09-25 16:33 | CN ---
PATIENT NAME:PENNY SOLOMON MEDICAL RECORD: [id number] : 63 LOCATION:[id number] ADMIT DATE: 09/20/16 ACCOUNT: [id number] CONSULTING PHYSICIAN: VAUGHN MARADIAGA MD REFERRING PHYSICIAN: MICHAEL RODRIGUEZ MD DATE OF CONSULTATION: 09/24/2016 IDENTIFYING DATA: The patient is 51 years old and she is admitted to the hospital on a voluntary basis. CHIEF COMPLAINT: Overdose. HISTORY OF PRESENT ILLNESS: The patient has a seizure disorder. She got a month's supply of Dilantin the 1st of this month and after 1 or 2 days, had taken almost the entire prescription. She was Dilantin toxic. The patient says she does not know why she took the pills. She says she was not trying to hurt herself. She then says she was not trying to get high either. She is clearly very low functioning individual, although she may be postictal from some seizure activity are still clouded in her sensorium because of the recent overdose, but she will answer questions and is not very polite, but with some persistence respond to me. She has some re-battles to questions that are clearly do and deliberately confrontational such as "who are you?" "what do you want?", I do not like answering all these questions, etc. etc. She also clearly is a low functioning individual under socialized, under educated and almost certainly of well below average intelligence even without any significant schooling. She states that she is . She is happy. She does not have any significant stressors other than her health and that she absolutely was not trying to hurt herself which I think is true, but I am not happy with the explanation or lack of explanation as to what she was doing taking so many medicines. MENTAL STATUS EXAMINATION: The patient is awake, alert and oriented to person, place and situation. She is mistaken about the date. Her mood is angry. Her affect is constricted. Thought processes are circumstantial. Memory, concentration and abstraction abilities are at least mildly impaired. She denies that she would seek to harm herself or others. She denies overt psychotic symptoms. She denies substance abuse issues. She denies a history of legal entanglements. ASSESSMENT: Adjustment disorder with mixed emotional features. PLAN: At this time, I strongly suspect a substance abuse problem. I think I am reasonably satisfied that this was not a suicide attempt. The patient in my view as mentioned is a very low functioning. Perhaps some of this, it could be related to this acute event, but I suspect underneath she is an extremely low functioning person and she should not be responsible for her own medication administration. She says her will help with this. I have having met him and I have no idea if he is in a higher functioning than she is. I would recommend that adult protective services be contacted by our psychologist social department and that a followup wellness check to determine if she is being properly supervised would be in order. The patient should not be making her own decisions about how to manage her medications. I do not think she is cognizant enough to do that properly. I suspect she probably misses lots of appointments for similar reasons. Again, there is no reason to hold her against her will or transferred to an inpatient psychiatric facility, but I do think psychologist social and adult protective services should follow up with her after she is discharged. CONSULT REPORT [id number] PENNY SOLOMON TRANSINT:[id number] Voice Confirmation ID: [id number] DOCUMENT ID: [id number] VAUGHN MARADIAGA MD at 1633 CC: [id number] DICTATION DATE: 09/24/16 1507 HEALTH CARE ANALYST: 09/24/162005 ADM IN [facility] [address] [place] [address]
--- NOTE | 2016-09-25 16:50 | NUR ---
DINNER TRAY TO BEDSIDE, INDEPENDENT WITH SET UP AND EATING
--- NOTE | 2016-09-25 19:20 | NUR ---
REPORT RECIEVED. ASSESSMENT COMPLETE PER FLOW SHEET. VSS. PT DENIES NEEDS. WILL CONTINUE TO MONITOR.
--- NOTE | 2016-09-25 21:21 | NUR ---
NO FAMILY AT THIS TIME. VSS. PT GIVEN COKE PER REQUEST. DENIES FURTHER NEEDS.
--- NOTE | 2016-09-25 23:26 | NUR ---
REASSESSMENT COMPLETE PER FLOW SHEET. VSS. NO NEW CHANGES. WILL CONTINUET O MONITOR. PT SLEEPING COMFORTABLY.
[2016-09-26] VITALS (8 sets, daily range): BP systolic 84–109; BP diastolic 55–76
--- NOTE | 2016-09-26 04:18 | NUR ---
REASSESSMENT COMPLETE EPRF LOW SHEET. VSS. PT SLEEPING COMFORTABLY. WILL CONTINUE TO MONITOR.
--- NOTE | 2016-09-26 07:00 | NUR ---
REC'D REPORT AND RESUMED CARE, AWAKE ALERT AND WATCHING TV, DENIES PAIN, VSS. ASSESSMENT COMPLETE PER FLOWSHEET, FOLLOWS COMMANDS, STATES READY TO GO HOME, AWAITING FOR DILATIN LEAVE TO TREND DOWN
--- NOTE | 2016-09-26 07:50 | NUR ---
BREAKFAST TRAY TO BEDSIDE, INDEPENDENT WITH SET UP AND EATING
--- NOTE | 2016-09-26 08:40 | NUR ---
DR RODRIGUEZ HERE FOR EVAL, DECISION MADE TO DISCHARGE PATIENT HOME
--- NOTE | 2016-09-26 08:53 | NUR ---
PATIENT IS TO BE DISCHARGED HOME WITH HER TODAY. I HAVE CONTACTED [facility] FOR REFERRAL. THEY WILL SEE HER FOR MEDICATION EDUCATION AND MANAGMENT. I HAVE FAXED THE REQUESTED INFORMATION. THEY WILL SEE THE PATIENT TOMORROW.
--- NOTE | 2016-09-26 09:45 | NUR ---
PHONE CALL TO DR RODRIGUEZ RE: CLARIFICATION OF [facility] HOME MED, WILL HOLD THIS MED TIL PATIENT SEES DR VELAZCO
--- NOTE | 2016-09-26 11:15 | NUR ---
SPOUSE MITUL AT BEDSIDE, DISCHARGE INSTRUCTIONS DISCUSSED, EXPLAINED THAT PATIENT SHOULD NOT START TOPAMAX OR DILATIN MEDICATIONS UNTIL SHE HAS SEEN DR. VELAZCO IN 1 WEEK, THEY VERBALIZED UNDERSTANDING, NO OTHER NEEDS AT THIS TIME
--- NOTE | 2016-09-26 11:30 | NUR ---
DISCHARGED VIA WHEELCHAIR TO FRONT ENTRANCE OF HOSPITAL, AA0, NO SIGNS OF DISTRESS, HOME VIA CAR WITH SPOUSE
== END 2016-09-26 11:30 | disposition home health service (06) | DRG 918 ==
LOC: D.ER 01:17 → D.ICU 03:50 → D.CVICU 03:50 → D.ICU 04:18
PROVIDERS: Family Medicine; ADMIT Family Medicine
PROC: 0T9B70Z Drainage of Bladder with Drainage Device, Via Natural or Artificial Opening (ICD-10-PCS; principal; 2016-09-22)
DX: T42.0X1A Poisoning by hydantoin derivatives, accidental (unintentional), initial encounter (principal); G40.909 Epilepsy, unspecified, not intractable, without status epilepticus; S00.83XA Contusion of other part of head, initial encounter; W19.XXXA Unspecified fall, initial encounter; Z78.1 Physical restraint status

== ENCOUNTER 2016-10-17 11:00 | Emergency (ER) | payer MEDICAID ==
[2016-09-20 09:53] VITALS: BMI 19.4
[2016-10-17 12:42] LABS: BASOPHILS 0.1 % (0.0-2.0); EOSINOPHILS 2.1 % (0-7); HEMATOCRIT 44.9 % (36.0-48.0); HEMOGLOBIN 15.6 g/dL (12-16); IMMATURE GRANULOCYTES 0.1 % (0-5); MCH 32.2 pg (26.0-34.0); MCHC 34.7 g/dL (31.0-37.0); MCV 92.8 fL (80.0-100.0); MEAN PLATELET VOLUME 11.3 fL (7.4-10.4); MONOCYTES 5.9 % (2-11); NEUTROPHILS 44.8 % (40-80); PLATELET COUNT 223 10x3/uL (130-400); RBC 4.84 10x6/uL (4.00-5.40); RDW 13.2 % (11.5-14.5); WBC 7.2 10x3/uL (4.8-10.8)
[2016-10-17 12:55] LABS: ALBUMIN 4.3 g/dL (3.4-5.0); ALKALINE PHOSPHATASE 127 U/L (46-116); ALT (SGPT) 39 U/L (10-68); BILIRUBIN - TOTAL 0.64 mg/dL (0.2-1.3); CALC OSMOLALITY 264 mosm/kg (275-300); CALCIUM 9.6 mg/dL (8.5-10.1); CARBON DIOXIDE 25.6 mmol/L (21.0-32.0); CHLORIDE - SERUM 93 mmol/L (98-107); POTASSIUM - SERUM 3.7 mmol/L (3.5-5.1); PROTEIN - SERUM 9.4 g/dL (6.4-8.2); SODIUM 131 mmol/L (136-145); UREA NITROGEN 18 mg/dL (7-18); eGFR NON AFRICAN AMERICAN 62 mL/min (90-120)
[2016-10-17 12:56] LABS: GLUCOSE 100 mg/dL (74-106)
[2016-10-17 13:03] LABS: AMYLASE - SERUM 52 U/L (25-115); CREATINE KINASE 77 UL (21-215); LIPASE 130 U/L (73-393); PRO BNP 101 pg/mL (0-125)
[2016-10-17 13:06] LABS: TROPONIN-I < 0.017 ng/mL (0.000-0.060)
[2016-10-17 13:17] LABS: UDS - AMPHET NEGATIVE QUAL (NEGATIVE); UDS - BARB NEGATIVE QUAL (NEGATIVE); UDS - BENZO POSITIVE QUAL (NEGATIVE); UDS - COCAINE NEGATIVE QUAL (NEGATIVE); UDS - METH NEGATIVE QUAL (NEGATIVE); UDS - OPIATE NEGATIVE QUAL (NEGATIVE); UDS - PCP NEGATIVE QUAL (NEGATIVE); UDS - THC NEGATIVE QUAL (NEGATIVE)
[2016-10-17 13:20] LABS: APPEARANCE SLT CLOUDY (CLEAR); BACTERIA MODERATE /hpf (NONE SEEN); BILIRUBIN NEGATIVE (NEGATIVE); COLOR YELLOW (YELLOW); EPITHELIAL CELLS 0-5 /hpf (0-5); GLUCOSE NEGATIVE (NEGATIVE); KETONE NEGATIVE (NEGATIVE); LEUKOCYTE ESTERASE NEGATIVE (NEGATIVE); NITRITE NEGATIVE (NEGATIVE); PROTEIN 1+ mg/dL (NEGATIVE); RED CELLS - URINE NONE SEEN /hpf (0-5); SPECIFIC GRAVITY 1.015 (1.005-1.020); UROBILINOGEN NORMAL (NORMAL); WHITE CELLS - URINE NSEEN /hpf (0-5)
== END 2016-10-17 14:20 | disposition home or self-care (01) ==
LOC: D.ER 11:00
PROVIDERS: Family Medicine
DX: R53.1 Weakness (principal); R42 Dizziness and giddiness; E87.6 Hypokalemia

== ENCOUNTER 2016-10-26 20:28 | Emergency (ER) | payer MEDICAID ==
[2016-09-20 09:53] VITALS: BMI 19.4
[2016-10-26 21:12] LABS: BASOPHILS 0.3 % (0.0-2.0); EOSINOPHILS 2.5 % (0-7); HEMATOCRIT 35.9 % (36.0-48.0); IMMATURE GRANULOCYTES 0.3 % (0-5); LYMPHOCYTES 59.1 % (15-50); MCH 31.6 pg (26.0-34.0); MCHC 33.4 g/dL (31.0-37.0); MCV 94.5 fL (80.0-100.0); MONOCYTES 5.8 % (2-11); PLATELET COUNT 190 10x3/uL (130-400); RDW 13.9 % (11.5-14.5); WBC 7.5 10x3/uL (4.8-10.8)
[2016-10-26 21:25] LABS: ALBUMIN 3.4 g/dL (3.4-5.0); ALKALINE PHOSPHATASE 92 U/L (46-116); ALT (SGPT) 27 U/L (10-68); BILIRUBIN - TOTAL 0.18 mg/dL (0.2-1.3); CALC OSMOLALITY 282 mosm/kg (275-300); CALCIUM 8.2 mg/dL (8.5-10.1); CARBON DIOXIDE 28.6 mmol/L (21.0-32.0); CHLORIDE - SERUM 106 mmol/L (98-107); CREATININE - SERUM 0.9 mg/dL (0.6-1.3); GLUCOSE 93 mg/dL (74-106); POTASSIUM - SERUM 3.5 mmol/L (3.5-5.1); PROTEIN - SERUM 7.6 g/dL (6.4-8.2); SODIUM 142 mmol/L (136-145); UREA NITROGEN 12 mg/dL (7-18); eGFR NON AFRICAN AMERICAN 70 mL/min (90-120)
[2016-10-26 21:30] LABS: APPEARANCE CLEAR (CLEAR); BILIRUBIN NEGATIVE (NEGATIVE); COLOR YELLOW (YELLOW); GLUCOSE NEGATIVE (NEGATIVE); KETONE NEGATIVE (NEGATIVE); LEUKOCYTE ESTERASE NEGATIVE (NEGATIVE); NITRITE NEGATIVE (NEGATIVE); PROTEIN NEGATIVE (NEGATIVE); UROBILINOGEN NORMAL (NORMAL)
[2016-10-26 21:33] LABS: UDS - AMPHET NEGATIVE QUAL (NEGATIVE); UDS - BARB NEGATIVE QUAL (NEGATIVE); UDS - BENZO POSITIVE QUAL (NEGATIVE); UDS - COCAINE NEGATIVE QUAL (NEGATIVE); UDS - METH NEGATIVE QUAL (NEGATIVE); UDS - OPIATE NEGATIVE QUAL (NEGATIVE); UDS - PCP NEGATIVE QUAL (NEGATIVE); UDS - THC NEGATIVE QUAL (NEGATIVE)
[2016-10-26 21:38] LABS: CKMB 0.3 U/L (0.0-3.6); CREATINE KINASE 88 UL (21-215)
[2016-10-26 21:39] LABS: TROPONIN-I < 0.017 ng/mL (0.000-0.060)
[2016-10-26 21:53] LABS: PHENYTOIN (DILANTIN) 37.4 ug/mL (10.0-20.0)
== END 2016-10-26 22:45 | disposition home or self-care (01) ==
LOC: D.ER 20:28
PROVIDERS: Emergency Medicine; Physician Assistant Medical
DX: T42.0X5A Adverse effect of hydantoin derivatives, initial encounter (principal); Y92.019 Unspecified place in single-family (private) house as the place of occurrence of the external cause; J06.9 Acute upper respiratory infection, unspecified

== ENCOUNTER 2016-10-28 13:09 | Inpatient (IN) | payer MEDICAID ==
[~2016-10-28] VITALS: Ht 154.9 cm; Wt 46.7 kg
--- NOTE | ~2016-10-28 | CN ---
PATIENT NAME:TAINA SOLOMON MEDICAL RECORD: [id number] : 63 LOCATION:D.[facility] ADMIT DATE: 10/28/16 ACCOUNT: [id number] CONSULTING PHYSICIAN: CARIE BONNER MD REFERRING PHYSICIAN: KIRSTIN REINOSO MD DATE OF CONSULTATION: 10/30/2016 Consultation is from Kirstin Reinoso. HISTORY OF PRESENT ILLNESS: Taina Solomon is a 51-year-old female in today with phenytoin toxicity. She has had some dizziness and she fell and hit the right side of her face. CT revealed orbit fracture. On talking to her, she has no complaints. She states she feels fine. She can walk good and has no problems and wants to go home. PHYSICAL EXAMINATION: FACE: She had right periorbital ecchymosis. She had normal facial function bilaterally. She has no numbness even the ____ distribution, everything feels she has normal perception and sensitivity. She does not complain of any diplopia in any field of gaze. No visual changes. Palpation of the bony face is all normal. Orbital rims nontender. No step offs on the nose. Mandible mid midface were all stable and normal as well. EYES: She has a normal eye positioned, no enophthalmos or exophthalmos. Extraocular movements are intact. No diplopia in any field of gaze. Anterior chambers are clear. NOSE: No masses, polyps or drainage. Nasal bones were stable in midline. ORAL CAVITY AND OROPHARYNX: She has edentulous mandible and midface are stable. Pharynx is normal. Palate is normal. NECK: No masses, no adenopathy. CT IMAGING: I looked at the CT films on the coronal films. She has just a little crack in the floor of the orbit on the right side, really no significant displacement, no volume change in the orbit and no entrapment really of minimal entry there and the fluid in the sinuses, most likely just blood, not an active sinusitis. IMPRESSION: Very minimal right orbital floor fracture. No indication for intervention. She is actually basically symptom free and just had a little ecchymosis around the eye at this point and she will heal just fine. I am going to see her back if needed. TRANSINT:[id number] Voice Confirmation ID: [id number] DOCUMENT ID: [id number] CARIE BONNER MD CC: [id number] DICTATION DATE: 10/30/16 1242 BOX FOLDING MACHINE OPERATOR: 10/30/16 192 ADM IN [facility] [address] [place] [id number]
[2016-10-28 13:29] LABS: APPEARANCE CLEAR (CLEAR); COLOR YELLOW (YELLOW); SPECIFIC GRAVITY 1.025 (1.005-1.020)
[2016-10-28 13:30] LABS: BILIRUBIN NEGATIVE (NEGATIVE); GLUCOSE NEGATIVE (NEGATIVE); KETONE NEGATIVE (NEGATIVE); LEUKOCYTE ESTERASE NEGATIVE (NEGATIVE); NITRITE NEGATIVE (NEGATIVE); PROTEIN NEGATIVE (NEGATIVE); UROBILINOGEN NORMAL (NORMAL)
[2016-10-28 13:41] LABS: UDS - AMPHET NEGATIVE QUAL (NEGATIVE); UDS - BARB NEGATIVE QUAL (NEGATIVE); UDS - BENZO POSITIVE QUAL (NEGATIVE); UDS - COCAINE NEGATIVE QUAL (NEGATIVE); UDS - METH NEGATIVE QUAL (NEGATIVE); UDS - OPIATE NEGATIVE QUAL (NEGATIVE); UDS - PCP NEGATIVE QUAL (NEGATIVE); UDS - THC NEGATIVE QUAL (NEGATIVE)
[2016-10-28 13:45] LABS: HEMATOCRIT 35.8 % (36.0-48.0); LYMPHOCYTES 64.5 % (15-50); MCH 31.5 pg (26.0-34.0); MCHC 33.5 g/dL (31.0-37.0); MEAN PLATELET VOLUME 10.4 fL (7.4-10.4); NEUTROPHILS 30.8 % (40-80); PLATELET COUNT 194 10x3/uL (130-400); RBC 3.81 10x6/uL (4.00-5.40); RDW 13.9 % (11.5-14.5)
[2016-10-28 14:01] LABS: ALBUMIN 3.5 g/dL (3.4-5.0); ALKALINE PHOSPHATASE 97 U/L (46-116); ALT (SGPT) 27 U/L (10-68); BILIRUBIN - TOTAL 0.23 mg/dL (0.2-1.3); CALC OSMOLALITY 284 mosm/kg (275-300); CALCIUM 8.5 mg/dL (8.5-10.1); CHLORIDE - SERUM 106 mmol/L (98-107); CREATININE - SERUM 0.8 mg/dL (0.6-1.3); GLUCOSE 104 mg/dL (74-106); POTASSIUM - SERUM 3.9 mmol/L (3.5-5.1); PROTEIN - SERUM 7.4 g/dL (6.4-8.2); SODIUM 142 mmol/L (136-145); eGFR NON AFRICAN AMERICAN 80 mL/min (90-120)
[2016-10-28 14:04] LABS: UREA NITROGEN 17 mg/dL (7-18)
--- NOTE | 2016-10-28 16:50 | NUR ---
PATIENT RECEIVED TO FLOOR FROM ER VIA STRETCHER. TRANSFERRED SELF TO BED. POSITIONED FOR COMFORT. ORIENTED TO ROOM. SIDE RAILS UP X2. BED IN LOW POSITION. CALL LIGHT IN REACH. BED ALARM ON.
[2016-10-28] MEDS ORDERED: DILANTIN100 MG PO (16:55)
[2016-10-28] MEDS ORDERED: MIDODRINE HCL2.5 MG PO (16:55)
[2016-10-28] MEDS ORDERED: VALIUM5 MG PO (16:56)
--- NOTE | 2016-10-28 17:10 | NUR ---
HOME MEDICATION LIST OBTAINED FROM TUAN BAUMAN.
--- NOTE | 2016-10-28 17:15 | NUR ---
SCDS ON BIALTERALLY. USE EXPLAINED. SIDE RAILS UP X2. BED IN LOW POSITION. CALL LIGHT IN REACH. BED ALARM ON.
[2016-10-28 17:19] VITALS: BP 102/64; BMI 19.5
--- NOTE | 2016-10-28 18:00 | NUR ---
ALERT IN BED TALKING ON PHONE. RESPIRATIONS EVEN AND UNLABORED. SIDE RAILS UP X2. BED IN LOW POSITION. CALL LIGHT IN REACH. BED ALARM ON.
--- NOTE | 2016-10-28 18:00 | NUR ---
HOME MEDICATION SENT TO PHARMACY WITH TAMIR LANDIS FOR LOCK UP
[2016-10-28 20:00] VITALS: BP 85/53
[2016-10-29] VITALS: BP 97/61
--- NOTE | 2016-10-29 01:30 | NUR ---
PT PULLS OUT IV RESITED IV TO RT HAND #22G ANGIOCATH X3 ATTEMPTS. RESUMED IV FLUIDS.
--- NOTE | 2016-10-29 01:42 | NUR ---
LEFT ROOM TO GET BED LINENS TO CHANGE PT'S BED. BED ALARM SOUNDING PATIENT CLIMB OUT OF BED AND FELL ON FLOOR FOUND PATIENT LYING ON RIGHT SIDE OF FACE AND HEAD BLOOD STREAMING DOWN FROM CUT ON RT EYEBROW. LARGE RAISED BRUISE AREA ON RT CHEEK AREA. ASSISTED PATIENT BACK INTO BED VS TAKEN T=98.3 PULSE=77 RESP=24 EB=063/75 LEFT ARM O2 SAT=99% ON ROOM AIR.
--- NOTE | 2016-10-29 01:45 | NUR ---
NOTIFIED HOUSE SUPERISOR KELLIE BUSCH. INFORMED OF FALL.
--- NOTE | 2016-10-29 01:55 | NUR ---
NOTIFIED PT'S MITUL REDMOND OF INCIDENT.
--- NOTE | 2016-10-29 01:58 | NUR ---
NOTIFIED JOSE DANIEL GALEAS OF INCIDENT ORDERS REC'D FOR CT HEAD SCAN WITHOUT CONTRAST..
--- NOTE | 2016-10-29 02:15 | NUR ---
TO RADIOLOGY DEPT PER BED FOR CT HEAD SCAN TO BE DONE.
--- NOTE | 2016-10-29 02:31 | NUR ---
RETURNED TO ROOM FROM RADIOLOGY DEPT.
--- NOTE | 2016-10-29 03:00 | NUR ---
NEURO CHECKS DONE NO CHANGES
[2016-10-29 04:00] VITALS: BP 120/55
[2016-10-29 05:55] LABS: BASOPHILS 0.2 % (0.0-2.0); EOSINOPHILS 2.1 % (0-7); HEMOGLOBIN 11.6 g/dL (12-16); IMMATURE GRANULOCYTES 0.1 % (0-5); LYMPHOCYTES 44.7 % (15-50); MCH 31.6 pg (26.0-34.0); MCHC 33.1 g/dL (31.0-37.0); MCV 95.4 fL (80.0-100.0); MEAN PLATELET VOLUME 11.2 fL (7.4-10.4); MONOCYTES 5.3 % (2-11); NEUTROPHILS 47.6 % (40-80); PLATELET COUNT 182 10x3/uL (130-400); RBC 3.67 10x6/uL (4.00-5.40); WBC 9.5 10x3/uL (4.8-10.8)
--- NOTE | 2016-10-29 06:00 | NUR ---
NEURO CHECKS DONE NO CHANGES.
[2016-10-29 06:20] LABS: ALBUMIN 3.2 g/dL (3.4-5.0); ALKALINE PHOSPHATASE 91 U/L (46-116); ALT (SGPT) 26 U/L (10-68); BILIRUBIN - TOTAL 0.18 mg/dL (0.2-1.3); CALC OSMOLALITY 286 mosm/kg (275-300); CARBON DIOXIDE 26.3 mmol/L (21.0-32.0); CHLORIDE - SERUM 108 mmol/L (98-107); CREATININE - SERUM 0.7 mg/dL (0.6-1.3); GLUCOSE 97 mg/dL (74-106); POTASSIUM - SERUM 3.5 mmol/L (3.5-5.1); PROTEIN - SERUM 7.3 g/dL (6.4-8.2); SODIUM 144 mmol/L (136-145); UREA NITROGEN 13 mg/dL (7-18); eGFR NON AFRICAN AMERICAN > 90 mL/min (90-120)
--- NOTE | 2016-10-29 07:30 | NUR ---
AWAKE, BUT CONFUSED THIS MORNING. STATING THAT PHONE IS BROKEN. EXPLAINED TO HER THAT WE WOULD PUT IN A WORK ORDER TO HAVE THE PHONE REPAIRED. ATTEMPTING TO GET OUT OF BED TO GO THE BATHROOM. EXPLAINED TO PT THAT DUE TO HER FALL AND UNSTEADY BALANCE SHE NEEDED TO USE THE BED MCINTYER. HAND RIVETER ASSISTED PT ON BED MCINTYRE. SRX3 WITH BED IN LOWEST POSITION AND WHEELS LOCKED. BED ALARM ON AND IN WORKING ORDER. CALL LIGHT IN REACH, WILL CONTINUE WITH PLAN OF CARE.
[2016-10-29 07:38] VITALS: BP 98/61
--- NOTE | 2016-10-29 09:34 | NUR ---
PRN IBUPROFEN ADMINISTERED AT THIS TIME FOR C/O HEADACHE. SCHEDULED MEDICATIONS ADMINISTERED AT THIS TIME. SRX3 WITH BED IN LOWEST POSITION AND WHEELS LOCKED. BED ALARM ON AND IN WORKING ORDER.
--- NOTE | 2016-10-29 10:15 | NUR ---
Patient Name: PENNY SOLOMON Admission Status: ER Accout number: [id number] Admission Date: 10-28-2016 : 1965 Admission Diagnosis: Attending: PEBBLES Current LOS: 1 Anticipated DC Date: 10-31-2016 Planned Disposition: Home Primary Insurance: MEDICAID [place] Discharge Planning Comments: CM MET WITH PATIENT REGARDING D/C NEEDS AND PLANS. PATIENT STATED SHE LIVES WITH HER SPOUSE (MITUL REDMOND) AND HE WILL DRIVE HER HOME AT DISCHARGE. PATIENT HAS NO STEPS OR STAIRS AT HER HOME. PATIENT STATED SHE IS INDEPENDENT EXCEPT HER SPOUSE DOES HER MEDS. PATIENT HAS A R. WALKER, AND A CANE AT HOME (DOES NOT USE). PATIENTS PCP IS DR. VELAZCO AND HER PHARMACY IS [facility] ON [facility]. PATIENT IS CURRENT WITH [facility]-DR. RODRIGUEZ FOLLOWS HER. SHE WAS SET UP WITH [facility] FROM LAST ICU VISIT. CM CALLED [facility] AND NURSE (ANA) STATED THEY WOULD NOT LET HER SET UP PATIENTS MEDS IN A PILL BOX. [facility] SEES PATIENT WEEKLY. CM CALLED [facility] AT [facility] AND THEY STATED A SCRIPT FOR DILANTIN 300MG DAILY AT BEDTIME. HAD BEEN PICKED UP ON 09-19-16 AND 10-21-[address] VELAZCO[address] APS WAS CONTACTED LAST VISIT IN ICU AND CM WAS ASKED TO CALL THEM AGAIN BY RJ DELUNA WITH DR. REINOSO. CM WILL CONTINUE TO FOLLOW PATIENT WITH D/C NEEDS AND PLANS. Career Services Coordinator: Elsi Webb How many steps to enter\exit or inside your home? 0 0 * PCP DR. VELAZCO 0 * Pharmacy [facility] 0 * Preadmission Environment Home with Family 0 * ADLs Partial Dependent 0 * Partial ADLs (Assistance needed) Medication Management 0 * Equipment Cane Rolling Walker 0 * List name and contact numbers for known caregivers / representatives who currently or will assist patient after discharge: MITUL REDMOND (SPOUSE) [phone] 0 * Community resources currently utilized None 0 * Additional services required to return to the preadmission environment? Yes 0 * Can the patient safely return to the preadmission environment? Yes 0 * Has this patient been hospitalized within the prior 30 days at any hospital? Yes 0 Grand Total: 0
--- NOTE | 2016-10-29 10:23 | NUR ---
CM REASSESSMENT NOTE: APS HAS BEEN NOTIFIED AT 10:20 PER REQUEST BY RJ DELUNA /DR. SABIHA REINOSO.
--- NOTE | 2016-10-29 10:25 | NUR ---
ASSISTED PT TO BEDSIDE COMMODE SO SHE COULD VOID AT THIS TIME. REMAINED IN ROOM WITH PT THE ENTIRE TIME DUE TO HER NOT FOLLOWING DIRECTIONS AND BEING VERY UNSTEADY ON HER FEET. ASSISTED PT BACK TO BED AND BED ALARM ON WITH SRX3.
[2016-10-29 11:54] VITALS: BP 110/72
--- NOTE | 2016-10-29 12:00 | NUR ---
ALERT AND ORIENTED X4 AT THIS TIME. STATES THAT SHE WANTS IV PAIN MEDICATION FOR HER HEAD. EXPLAINED THAT DUE TO ADMITTING DIAGNOSIS THE PHYSICIAN ON HER CASE WOULD NOT ORDER HER NARCOTIC PAIN MEDICATION AND THAT SHE WOULD HAVE TO USE THE IBUPROFEN PRN ORDERED. PT SAID, "I WANT TO SEE A DOCTOR. THEY ARE GOING TO HAVE TO DO SOMETHING." EXPLAINED TO PT THAT I WOULD SPEAK WITH DR REINOSO AND RJ DELUNA. SHE VERBALIZED UNDERSTANDING.
--- NOTE | 2016-10-29 12:15 | NUR ---
EXPLAINED TO PT THAT NO IV NARCOTICS WERE BEING ORDERED PER RJ DELUNA AND THAT SHE WOULD HAVE TO TAKE THE IBUPROFEN ALREADY ORDERED.
[2016-10-29 13:24] VITALS: Ht 154.9 cm; Wt 46.7 kg
--- NOTE | 2016-10-29 14:25 | NUR ---
ENTERED PT'S ROOM DUE TO BED ALARM SOUNDING. PT IS ON ALL FOURS LOOKING OVER THE FOOTBOARD AND ATTEMPTING TO TURN OFF THE BED ALARM HERSELF. ASKED PT WHAT SHE WAS DOING AND PT STATES, "I AM TRYING TO TURN THIS DAMN THING OFF BECAUSE I DO NOT NEED IT ON." EXPLAINED TO PT THAT ALARM WAS ON FOR SAFETY DUE TO UNSTEADY GAIT AND FALL FROM LAST NIGHT. SHE STATES, "WELL I DON'T CARE, I AM GONIG TO TURN IT OFF TONIGHT BECAUSE I DO NOT NEED IT." BED ALARM ON AT THIS TIME. WILL CONTINUE WITH PLAN OF CARE. NOTIFIED RJ DELUNA AND DR REINOSO.
--- NOTE | 2016-10-29 15:00 | NUR ---
GREG BURGOS RN AND MYSELF ENTERED PT'S ROOM AT THIS TIME. PT WAS ABLE TO STATE HER NAME AND BIRTHDAY, WELL HER REASON FOR BEING IN THE HOSPITAL WHICH SHE STATED WAS DUE T, "MY SEIZURES." SHE ALSO TOLD US THAT HOME HEALTH COMES TO HER HOME TO HELP WITH HER MED BOX SET UP. GREG EXPLAINED TO PT THAT SHE WAS NOT SUPPOSED TO BE ON THE DILANTIN AND PT STATED, "I TOOK THE DILANTIN AGAIN BECAUSE I WAS STILL HAVING SEIZURES AND THE DEPAKOTE WAS NOT WORKING." OFFERED TO PT THE RELEASE OF RESPONSIBILITY FOR BED ALARM AND PT VOICED THAT SHE WOULD LIKE TO SIGN IT SO THAT HER BED ALARM COULD BE TURNED OFF. EXPLAINED TO PT THAT IT WAS IMPORTANT TO HAVE THE BED ALARM DUE TO HER UNSTEADY GAIT, INCREASED DILANTIN LEVELS AND RECENT FALL WHICH RESULTED IN A FRACTURE. PT VOICED UNDERSTANDING, BUT STILL WISHED TO SIGN THE RELEASE OF RESPONSIBILITY FOR THE BED ALARM. SPOKE WITH NARAYAN MAOWILDLAND FIRE FIGHTER AT THIS TIME REGARDING SITUATION AND SHE FEELS THAT REGARDLESS OF THE DECLINATION, PT IS STILL AT HIGH RISK AND BED ALARM SHOULD BE KEPT ON. BED ALARM REMAINS ON WITH SRX3 AND IN LOWEST POSITION. CONTROLS TO BED LOCKED, SO THAT PT MAY NOT ATTEMPT TO GET UP ON HER OWN.
[2016-10-29 15:49] VITALS: BP 116/68
--- NOTE | 2016-10-29 16:22 | NUR ---
IV ACCESS-22 GAUGE INSERTED IN RIGHT HAND FOR ACCESS. LINH ABREU RN
--- NOTE | 2016-10-29 16:44 | NUR ---
22G IV SITED TO PT'S RIGHT WRIST X7 ATTEMPTS. PRN IBUPROFEN ADMINISTERED PER ORDER FOR HEADACHE. DENIES NEEDS. BED ALARM ON, CALL LIGHT IN REACH. WILL CONTNUE WITH PLAN OF CARE.
[2016-10-29 20:46] VITALS: BP 107/66
[2016-10-30 04:00] VITALS: BP 100/63
--- NOTE | 2016-10-30 06:00 | NUR ---
ASSESSMENT PER FLOWSHEET SEE DOWNTIME ASSESSMENT SHEET.AND DOWNTIME MARS.
[2016-10-30 06:30] LABS: HEMATOCRIT 33.3 % (36.0-48.0); MCH 31.6 pg (26.0-34.0); MCV 95.7 fL (80.0-100.0); MEAN PLATELET VOLUME 11.2 fL (7.4-10.4); PLATELET COUNT 174 10x3/uL (130-400); RBC 3.48 10x6/uL (4.00-5.40); RDW 14.5 % (11.5-14.5); WBC 6.5 10x3/uL (4.8-10.8)
[2016-10-30 06:42] LABS: ALBUMIN 2.8 g/dL (3.4-5.0); ALKALINE PHOSPHATASE 83 U/L (46-116); ALT (SGPT) 20 U/L (10-68); CALCIUM 7.7 mg/dL (8.5-10.1); CARBON DIOXIDE 24.6 mmol/L (21.0-32.0); CHLORIDE - SERUM 111 mmol/L (98-107); CREATININE - SERUM 0.7 mg/dL (0.6-1.3); GLUCOSE 93 mg/dL (74-106); POTASSIUM - SERUM 3.6 mmol/L (3.5-5.1); SODIUM 145 mmol/L (136-145); eGFR NON AFRICAN AMERICAN > 90 mL/min (90-120)
[2016-10-30 06:44] LABS: CALC OSMOLALITY 286 mosm/kg (275-300); UREA NITROGEN 8 mg/dL (7-18)
[2016-10-30 07:56] LABS: EOSINOPHILS 1 % (0-7); LYMPHOCYTES 62 % (15-50); MONOCYTES 7 % (2-11); NEUTROPHILS 30 % (40-80); PLATELET ESTIMATE NORMAL
[2016-10-30 09:00] VITALS: BP 93/60
[2016-10-30 13:34] VITALS: BP 101/55
[2016-10-30 17:16] VITALS: BP 101/63
[2016-10-30 20:00] VITALS: BP 97/61
[2016-10-31] VITALS: BP 89/53
--- NOTE | 2016-10-31 02:15 | NUR ---
ASSESSED AT THE BEGINNING OF THE SHIFT. PT IS ALERT AND ORIENTED, ABLE TO VERBALIZE NEEDS. SHE HAD A BED ALARM IN PLACE BUT SIGNED A WAVIER TO LEAVE IT OFF.SHE GOT UP WALING IN THE HALLWAYS FOR A WHILE AND THEN AFTER ABOUT 2200 SHE CRAWLED UP IN THE BED AND WENT TO SLEEP. HER B/P WAS A LITTLE LOW AND WE ARE WATCHING IT. THE BED IS LOW, RAILS UP X'S 2 WITH THE CALL LIGHT AT HAND.
[2016-10-31 04:00] VITALS: BP 97/60
[2016-10-31 05:49] LABS: BASOPHILS 0.1 % (0.0-2.0); EOSINOPHILS 3.5 % (0-7); HEMATOCRIT 35.2 % (36.0-48.0); HEMOGLOBIN 11.5 g/dL (12-16); IMMATURE GRANULOCYTES 0.1 % (0-5); LYMPHOCYTES 56.5 % (15-50); MCHC 32.7 g/dL (31.0-37.0); MCV 94.9 fL (80.0-100.0); MEAN PLATELET VOLUME 10.9 fL (7.4-10.4); NEUTROPHILS 33.8 % (40-80); PLATELET COUNT 191 10x3/uL (130-400); RBC 3.71 10x6/uL (4.00-5.40); RDW 14.4 % (11.5-14.5); WBC 6.9 10x3/uL (4.8-10.8)
[2016-10-31 06:31] LABS: ALBUMIN 2.8 g/dL (3.4-5.0); ALKALINE PHOSPHATASE 87 U/L (46-116); ALT (SGPT) 19 U/L (10-68); BILIRUBIN - TOTAL 0.13 mg/dL (0.2-1.3); CARBON DIOXIDE 28.1 mmol/L (21.0-32.0); CHLORIDE - SERUM 107 mmol/L (98-107); CREATININE - SERUM 0.7 mg/dL (0.6-1.3); GLUCOSE 103 mg/dL (74-106); PHENYTOIN (DILANTIN) 38.2 ug/mL (10.0-20.0); POTASSIUM - SERUM 3.3 mmol/L (3.5-5.1); PROTEIN - SERUM 6.4 g/dL (6.4-8.2); SODIUM 143 mmol/L (136-145); eGFR NON AFRICAN AMERICAN > 90 mL/min (90-120)
[2016-10-31 06:43] LABS: CALC OSMOLALITY 284 mosm/kg (275-300); UREA NITROGEN 12 mg/dL (7-18)
[2016-10-31 07:57] VITALS: BP 108/71
--- NOTE | 2016-10-31 08:00 | NUR ---
ASSESSMENT PER FLOW SHEET.PT WITHOUT DISTRESS.SHE IS WANTING TO GO HOME TODAY.SHE HAS AMBULATED IN HALLS THIS AM.PT INSTRUCTED NOT TO GET OUT OF BED WITHOUT CALLING FOR ASSISTANCE BEFORE GETTING OUT OF BED.CALL LIGHT IN REACH
--- NOTE | 2016-10-31 10:00 | NUR ---
PT SITTING IN CHAIR,SHE HAS BEEN CRYING.SHE WANTS TO GO HOME.EXPLAINED TO PT HER LABS THIS AM (DILANTIN LEVEL) STILL ELEVATED. REMINDED PT TO CALL FOR NEEDS.CALL LIGHT IN REACH
--- NOTE | 2016-10-31 12:00 | NUR ---
SITTING IN BED WITHOUT DISTRESS.REQUEST ICE CREAM.SHE IS WITHOUT CONFUSION AT PRESENT,BUT IS SLOW TO RESPOND VERBALLY STILL.SHE HAS HAD VISITORS FROM [facility] AND HER MOOD SEEMS BETTER.MONITOR.
[2016-10-31 12:20] VITALS: BP 91/43
--- NOTE | 2016-10-31 12:41 | NUR ---
NUTRITION MONTIORING & EVAL CHART REVIEWED, PT VISIT. TOLERATING REG DIET. 100% INTAKE MEALS. RD FOLLOWING
--- NOTE | 2016-10-31 15:39 | NUR ---
CM REASSESSMENT NOTE: CM NOTIFIED APS (JEAN) THIS AM TO TOUCH BASE AND SEE WHEN THEY WOULD BE COMING TO SEE PATIENT. CALL WAS PLACED YESTERDAY TO APS. JEAN STATED IT WOULD BE TODAY OR TOMORROW BEFORE SHE COULD GET HERE. CM WILL CONTINUE TO FOLLOW PATIENT WITH D/C NEEDS AND PLANS.
--- NOTE | 2016-10-31 15:39 | NUR ---
OUT IN HALLS AMBULATING AT PRESENT.REFUSES TO STAY IN ROOM FOR SAFETY.MONITOR FOR NEEDS.
[2016-10-31 16:14] VITALS: BP 98/59
--- NOTE | 2016-10-31 17:37 | NUR ---
EATINGDINNER,WITHOUT DISTRESS.CALL LIGHT IN REACH
[2016-10-31 23:39] VITALS: BP 99/58
--- NOTE | 2016-11-01 00:09 | NUR ---
ASSESSED AT THE BEGINNNING OF THE SHIFT. PT IS ALERT AND ORIENTED, ABLE TO VERBALIZE NEEDS. SHE HAS BEEN UP WALKING IN THE HALLS AND ABOUT HER ROOM. HER IV SITE TO THE LEFT ARM IS STILL INTACT WITH NS AT 100. SHE TALKS OF GOING HOME SO SHE CAN BE WITH HER FAMILY DURING . SHE IS GETTING UP TO THE BATHROOM TO VOID. AND HAS NOT VOICED ANY COMPLAINTS OF PAIN. THE BED IS LOW, RAILS UP X'S 2 WITH THE CALL LIGHT AT HAND. THE BED IS LOW, RAILS UP X'S 2 WITH THE CALL LIGHT AT HAND.
[2016-11-01 05:03] LABS: BASOPHILS 0.2 % (0.0-2.0); EOSINOPHILS 4.6 % (0-7); HEMOGLOBIN 11.8 g/dL (12-16); IMMATURE GRANULOCYTES 0.2 % (0-5); LYMPHOCYTES 55.1 % (15-50); MCH 31.5 pg (26.0-34.0); MCHC 32.8 g/dL (31.0-37.0); MEAN PLATELET VOLUME 10.8 fL (7.4-10.4); NEUTROPHILS 30.9 % (40-80); PLATELET COUNT 176 10x3/uL (130-400); RBC 3.75 10x6/uL (4.00-5.40); RDW 14.7 % (11.5-14.5); WBC 5.9 10x3/uL (4.8-10.8)
[2016-11-01 05:30] LABS: ALBUMIN 2.9 g/dL (3.4-5.0); ALKALINE PHOSPHATASE 85 U/L (46-116); ALT (SGPT) 22 U/L (10-68); CALC OSMOLALITY 276 mosm/kg (275-300); CALCIUM 8.5 mg/dL (8.5-10.1); CARBON DIOXIDE 30.9 mmol/L (21.0-32.0); CHLORIDE - SERUM 105 mmol/L (98-107); CREATININE - SERUM 0.7 mg/dL (0.6-1.3); GLUCOSE 106 mg/dL (74-106); PHENYTOIN (DILANTIN) 38.8 ug/mL (10.0-20.0); POTASSIUM - SERUM 3.6 mmol/L (3.5-5.1); PROTEIN - SERUM 6.6 g/dL (6.4-8.2); SODIUM 140 mmol/L (136-145); UREA NITROGEN 8 mg/dL (7-18); eGFR NON AFRICAN AMERICAN > 90 mL/min (90-120)
[2016-11-01 05:51] VITALS: BP 94/54
[2016-11-01 08:04] VITALS: BP 118/73
--- NOTE | 2016-11-01 08:30 | NUR ---
PT SEEN EARILER AND ASSESSED. NO COMPLAINTS AT PRESENT. HEALING BRUISE NOTED TO RIGHT EYE AREA. GAIT STEADY AND NO DIZZINESS NOTED OR VOICED. BED ALARM REFUSAL STILL ON CHART IF NEEDED. WANTS TO GO HOME TODAY. CALL LIGHT IN REACH
--- NOTE | 2016-11-01 12:42 | NUR ---
APS TO SEE MAGDA SPEAKING WITH THEM.PT REMAINS WITHOUT DISTRESS.
[2016-11-01 12:45] VITALS: BP 101/56
--- NOTE | 2016-11-01 13:42 | NUR ---
CM REASSESSMENT NOTE: ADAIR KUHN FROM APS CAME AND SPOKE TO PATIENT. APS STATED THEY COULD NOT PUT A HOLD ON PATIENT BECAUSE SHE IS ALERT AND ORIENTED AND WILL SEE HER WHEN SHE DISCHARGES HOME. APS IS CALLING SPOUSE REGARDING THE MED IN QUESTION (DILANTIN) AND USING A PILL ORGANIZER FROM NOW ON. CM WILL CONTINUE TO FOLLOW PATIENT WITH D/C NEEDS AND PLANS. CLINICALS REQUESTED AND FAXED.
--- NOTE | 2016-11-01 14:26 | NUR ---
SITTING UP IN CHAIR,WITHOUT DISTRESS.CALL LIGHT IN REACH.
--- NOTE | 2016-11-01 15:02 | NUR ---
CM REASSESSMENT NOTE: PATIENTS SPOUSE (MITUL REDMOND) AND FATHER IN LAW (GURVINDER) ARE IN THE ROOM AND CM SPOKE WITH THEM REGARDING THE DILANTIN ISSUE. PATIENTS SPOUSE STATES HE HAS HER MEDS LOCKED IN THE GARAGE AND SHE CANNOT GET TO THEM. HE ALSO STATES HE BROUGHT THE DILANTIN TO HOSPITAL REQUESTED BY NURSE. PATIENT STATED I AM NOT A DRUG ADDICT. PATIENTS SPOUSE STATED I GIVE HER THE MEDS THAT ARE ORDERED AND THATS ALL. CM EXPLAINED APS IS WOULD BE CALLING HIM. SPOUSE STATED THATS OK AND HE THEN WENT TO BATHROOM AND CM LEFT THE ROOM.
[2016-11-01 16:10] VITALS: BP 99/72
--- NOTE | 2016-11-01 18:53 | NUR ---
REMAINS WITHOUT CHANGE.HAS BEEN UP IN HALLS TODAY.SHE HOPES FOR DC HOME IN AM.CONT PLAN OF CARE
--- NOTE | 2016-11-01 19:30 | NUR ---
PT RECEIVED SITTING UP IN ROOM WATCHING TELEVISION. ASSESSMENT COMPLETED, SEE SHIFT ASSESSMENT. PT DENIES PAIN OR NEEDS AT THIS TIME. CALL LIGHT AND H2O IN PT REACH. BED IN LOW POSITION. SIDE RAILS UP X2.
[2016-11-01 20:33] VITALS: BP 98/68
[2016-11-02 00:17] VITALS: BP 92/58
--- NOTE | 2016-11-02 05:29 | NUR ---
PT IS CURLED UP IN HER BED ASLEEP WITH EASY RESPIRATIONS AND NO DISTRESS NOTED. HER BED IS LOW, RAILS UP X'S 2 WITH THE CALL LIGHT AT HAND.
[2016-11-02 06:55] LABS: BASOPHILS 0.3 % (0.0-2.0); EOSINOPHILS 4.2 % (0-7); HEMATOCRIT 36.7 % (36.0-48.0); HEMOGLOBIN 12.1 g/dL (12-16); IMMATURE GRANULOCYTES 0.2 % (0-5); LYMPHOCYTES 42.9 % (15-50); MCH 31.6 pg (26.0-34.0); MCV 95.8 fL (80.0-100.0); MEAN PLATELET VOLUME 10.8 fL (7.4-10.4); MONOCYTES 10.3 % (2-11); NEUTROPHILS 42.1 % (40-80); PLATELET COUNT 210 10x3/uL (130-400); RBC 3.83 10x6/uL (4.00-5.40); RDW 14.8 % (11.5-14.5)
[2016-11-02 07:18] LABS: ALBUMIN 2.9 g/dL (3.4-5.0); ALKALINE PHOSPHATASE 92 U/L (46-116); ALT (SGPT) 21 U/L (10-68); BILIRUBIN - TOTAL 0.11 mg/dL (0.2-1.3); CALC OSMOLALITY 278 mosm/kg (275-300); CALCIUM 8.1 mg/dL (8.5-10.1); CARBON DIOXIDE 26.3 mmol/L (21.0-32.0); CHLORIDE - SERUM 105 mmol/L (98-107); CREATININE - SERUM 0.7 mg/dL (0.6-1.3); GLUCOSE 110 mg/dL (74-106); PHENYTOIN (DILANTIN) 37.7 ug/mL (10.0-20.0); POTASSIUM - SERUM 3.8 mmol/L (3.5-5.1); SODIUM 140 mmol/L (136-145); UREA NITROGEN 9 mg/dL (7-18); eGFR NON AFRICAN AMERICAN > 90 mL/min (90-120)
--- NOTE | 2016-11-02 07:45 | NUR ---
PATIENT RECEIVED IN LOW JOSE POSITION RESTING QUIETLY. RESPIRATIONS EVEN AND UNLABORED. SIDE RAILS UP X2. BED IN LOW POSITION. CALL LIGHT IN REACH.
[2016-11-02 08:24] VITALS: BP 102/56
--- NOTE | 2016-11-02 09:19 | NUR ---
SITTING UP ON SIDE OF BED ALERT. NO SIGNS OF DISTRESS NOTED. SCHEDULED MEDICATION ADMINISTERED. WANTING TO GO HOME. BED IN LOW POSITION. CALL LIGHT IN REACH.
--- NOTE | 2016-11-02 12:11 | NUR ---
PATIENT UP AMBULATING IN HALLWAY WITHOUT ASSIST. NO SIGNS OF DISTRESS NOTED.
[2016-11-02 12:14] VITALS: BP 118/70
--- NOTE | 2016-11-02 14:00 | NUR ---
ALERT IN BED. NO SIGNS OF DISTRESS NOTED. SIDE RAILS UP X2. BED IN LOW POSITION. CALL LIGHT IN REACH.
[2016-11-02 16:30] VITALS: BP 110/76
--- NOTE | 2016-11-02 16:45 | NUR ---
PATIENT ALERT IN BED TALKING ON PHONE. NO SIGNS OF DISTRESS NOTED. SIDE RAILS UP X2. BED IN LOW POSITION. CALL LIGHT IN REACH.
--- NOTE | 2016-11-02 17:40 | NUR ---
PATIENT ALERT IN BED WITH FAMILY AT BEDSIDE. NO SIGNS OF DISTRESS NOTED. SIDE RAILS UP X2. BED IN LOW POSITION. CALL LIGHT IN REACH.
[2016-11-02 20:00] VITALS: BP 110/68
[2016-11-03] VITALS: BP 114/70
--- NOTE | 2016-11-03 00:01 | NUR ---
REC'D PAIENT LYING IN BED. SHE WAS CRYING. I ASKED WHAT ABOUT AND SHE WOULD NOT TELL ME ALSO WOULD NOT LET ME DO ANYTHING FOR HER. DENIED PAIN AT THIS TIME. DENIED FURTHER NEEDS AT THIS TIME. INSTRUCTED TO CALL IF NEEDED ANYTHING. VERBALIZED UNDERSTANDING. BED LOW, LOCKED, CALL LIGHT IN REACH.
[2016-11-03 04:00] VITALS: BP 114/70
--- NOTE | 2016-11-03 04:32 | NUR ---
PATIENT RESTING WITH EYES CLOSED, NO VISIBLE SIGNS OF DISTRESS. BED IN LOWEST POSITION AND CALL LIGHT WITHIN REACH. ENCOURAGED PATIENT TO CALL IF SHE HAS FURTHER NEEDS.
[2016-11-03 05:32] LABS: BASOPHILS 0.5 % (0.0-2.0); EOSINOPHILS 5.4 % (0-7); HEMATOCRIT 37.9 % (36.0-48.0); HEMOGLOBIN 12.5 g/dL (12-16); LYMPHOCYTES 58.2 % (15-50); MCH 31.4 pg (26.0-34.0); MCV 95.2 fL (80.0-100.0); MEAN PLATELET VOLUME 10.7 fL (7.4-10.4); NEUTROPHILS 24.9 % (40-80); PLATELET COUNT 213 10x3/uL (130-400); RBC 3.98 10x6/uL (4.00-5.40); RDW 14.6 % (11.5-14.5); WBC 3.9 10x3/uL (4.8-10.8)
[2016-11-03 06:06] LABS: ALKALINE PHOSPHATASE 93 U/L (46-116); BILIRUBIN - TOTAL 0.18 mg/dL (0.2-1.3); CALC OSMOLALITY 278 mosm/kg (275-300); CARBON DIOXIDE 26.1 mmol/L (21.0-32.0); CHLORIDE - SERUM 106 mmol/L (98-107); CREATININE - SERUM 0.6 mg/dL (0.6-1.3); GLUCOSE 97 mg/dL (74-106); POTASSIUM - SERUM 3.6 mmol/L (3.5-5.1); PROTEIN - SERUM 7.3 g/dL (6.4-8.2); SODIUM 141 mmol/L (136-145); UREA NITROGEN 7 mg/dL (7-18); eGFR NON AFRICAN AMERICAN > 90 mL/min (90-120)
[2016-11-03 06:07] LABS: ALT (SGPT) 28 U/L (10-68)
--- NOTE | 2016-11-03 07:35 | NUR ---
PATIENT RECEIVED ALERT IN LEFT LATERAL POSITION. RESPIRATIONS EVEN AND UNLABORED. DENIES NEEDS. WANTS TO GO HOME. SIDE RAILS UP X2. BED IN LOW POSITION. CALL LIGHT IN REACH.
[2016-11-03 08:14] VITALS: BP 111/62
--- NOTE | 2016-11-03 09:00 | NUR ---
SITTING UP ON SIDE OF BED ALERT. NO SIGNS OF DISTRESS NOTED. SCHEDULED MEDICATION ADMINISTERED. SIDE RAILS UP X2. BED IN LOW POSITION. CALL LIGHT IN REACH.
--- NOTE | 2016-11-03 12:00 | NUR ---
PATIENT SITTING UP IN CHAIR ALERT. NO SIGNS OF DISTRESS NOTED. CALL LIGHT IN REACH.
[2016-11-03 12:44] VITALS: BP 106/75
--- NOTE | 2016-11-03 14:55 | NUR ---
ALERT IN BED TALKING ON PHONE. NO SIGNS OF DISTRESS NOTED. SIDE RAILS UP X2. BED IN LOW POSITION. CALL LIGHT IN REACH.
[2016-11-03 15:50] VITALS: BP 104/72
--- NOTE | 2016-11-03 17:15 | NUR ---
PATIENT UP AMBULATING IN HALLWAY. NO SIGNS OF DISTRESS NOTED.
[2016-11-03 19:00] VITALS: BP 112/70
--- NOTE | 2016-11-03 20:00 | NUR ---
ASSESSMENT TN FLOWSHEET. IV PATENT LEFT WRIST OF NS AT 75CC'S/HR SITE CLEAR. BRUISE TO RT CHEEK AREA. PT REFUSES BED ALARM HAS SIGNED A WAIVER AND IS ON CHART. UP AD JACK IN ROOM.
--- NOTE | 2016-11-03 22:00 | NUR ---
AWAKE WATCHING TV DENIES NEEDS.
[2016-11-04] VITALS: BP 110/69
--- NOTE | 2016-11-04 | NUR ---
EYES CLOSED REPIRATIONS WITH EASE AND UNLABORED.
[2016-11-04 04:00] VITALS: BP 114/72
--- NOTE | 2016-11-04 04:19 | NUR ---
EYES CLOSED RESPIRATIONS WITH EASE AND UNLABORED.
[2016-11-04 06:08] LABS: BASOPHILS 0.2 % (0.0-2.0); EOSINOPHILS 4.6 % (0-7); HEMATOCRIT 36.5 % (36.0-48.0); LYMPHOCYTES 66.9 % (15-50); MCH 31.5 pg (26.0-34.0); MCHC 32.9 g/dL (31.0-37.0); MCV 95.8 fL (80.0-100.0); MEAN PLATELET VOLUME 10.8 fL (7.4-10.4); MONOCYTES 9.5 % (2-11); NEUTROPHILS 18.8 % (40-80); PLATELET COUNT 181 10x3/uL (130-400); RBC 3.81 10x6/uL (4.00-5.40); RDW 14.8 % (11.5-14.5); WBC 4.8 10x3/uL (4.8-10.8)
[2016-11-04 06:46] LABS: ALKALINE PHOSPHATASE 97 U/L (46-116); ALT (SGPT) 30 U/L (10-68); BILIRUBIN - TOTAL 0.16 mg/dL (0.2-1.3); CALC OSMOLALITY 280 mosm/kg (275-300); CALCIUM 8.2 mg/dL (8.5-10.1); CARBON DIOXIDE 26.7 mmol/L (21.0-32.0); CHLORIDE - SERUM 106 mmol/L (98-107); CREATININE - SERUM 0.7 mg/dL (0.6-1.3); GLUCOSE 95 mg/dL (74-106); PHENYTOIN (DILANTIN) 22.2 ug/mL (10.0-20.0); POTASSIUM - SERUM 3.7 mmol/L (3.5-5.1); PROTEIN - SERUM 7.3 g/dL (6.4-8.2); SODIUM 142 mmol/L (136-145); UREA NITROGEN 8 mg/dL (7-18); eGFR NON AFRICAN AMERICAN > 90 mL/min (90-120)
--- NOTE | 2016-11-04 07:30 | NUR ---
RECEIVED PT DURING WALKING ROUNDS. PT RESTING COMFORTABLY IN BED WITH NO COMPLAINTS OF PAIN OR DISCOMFORT AT THIS TIME. ASSESSMENT DONE PER FLOWSHEET. BED IN LOW POSITION AND CALL LIGHT WITHIN REACH. WILL CONTINUE TO MONITOR.
[2016-11-04 08:34] VITALS: BP 102/69
[2016-11-04] MEDS ORDERED: KEPPRA500 MG PO (10:34)
[2016-11-04 11:25] VITALS: BP 110/73
--- NOTE | 2016-11-04 12:30 | NUR ---
PT GIVEN MEDS FROM PHARMACY. DILANTIN WASTED WITH GREG BURGOS RN. PT DISCHAGED TO HOME VIA WHEELCHAIR.
--- NOTE | 2016-11-04 12:55 | NUR ---
DISCHARGE INSTRUCTIONS GIVEN AT THIS TIME, IV REMOVED, CATH INTACT. PT WAITING ON RIDE HOMW. WILL CONTINUE TO MONITOR.
--- NOTE | 2016-11-04 13:30 | NUR ---
PATIENT STANDING UP IN ROOM AT THIS TIME WAITING FOR TRANSPORTATIN TO GO HOME. NO COMPLAINTS. CALL LIGHT WITHIN REACH.
--- NOTE | 2016-11-04 15:25 | NUR ---
LATE ENTRY: PATIENT DISCHARGED HOME TODAY-FAMILY DROVE HER. [facility] AWARE OF DISCHARGE AND AWARE OF DILANTIN BEING DISCONTINUED.
== END 2016-11-04 13:41 | disposition home health service (06) | DRG 918 ==
LOC: D.ER 13:09 → D.MS 15:35 → OBSVTIME 15:35 → D.MS 15:35
PROVIDERS: Emergency Medicine; ADMIT Emergency Medicine
DX: T42.0X1A Poisoning by hydantoin derivatives, accidental (unintentional), initial encounter (principal); S02.31XA Fracture of orbital floor, right side, initial encounter for closed fracture; R47.1 Dysarthria and anarthria; G40.909 Epilepsy, unspecified, not intractable, without status epilepticus; K21.9 Gastro-esophageal reflux disease without esophagitis; W06.XXXA Fall from bed, initial encounter; Y92.230 Patient room in hospital as the place of occurrence of the external cause; J32.9 Chronic sinusitis, unspecified; S05.11XA Contusion of eyeball and orbital tissues, right eye, initial encounter; R27.0 Ataxia, unspecified

== ENCOUNTER 2016-12-07 23:58 | Emergency (ER) | payer MEDICAID ==
[2016-10-29 13:24] VITALS: BMI 19.4
[~2016-12-07 23:58] MED LIST changes: +DILANTIN100 MG PO; +KEPPRA500 MG PO; +MIDODRINE HCL2.5 MG PO; +VALIUM5 MG PO
[2016-12-08 01:09] LABS: BASOPHILS 0.2 % (0-2); EOSINOPHILS 1.9 % (0-7); HEMATOCRIT 40.4 % (36.0-48.0); HEMOGLOBIN 13.5 g/dL (12-16); IMMATURE GRANULOCYTES 0.3 % (0-5); LYMPHOCYTES 51.9 % (15-50); MCH 31.3 pg (26.0-34.0); MCHC 33.4 g/dL (31.0-37.0); MCV 93.5 fL (80.0-100.0); MEAN PLATELET VOLUME 11.6 fL (7.4-10.4); MONOCYTES 3.5 % (2-11); NEUTROPHILS 42.2 % (40-80); PLATELET COUNT 173 10x3/uL (130-400); RBC 4.32 10x6/uL (4.00-5.40); RDW 13.5 % (11.5-14.5); WBC 11.6 10x3/uL (4.8-10.8)
== END 2016-12-08 01:40 | disposition left against medical advice (07) ==
LOC: D.ER 23:58
PROVIDERS: Physician Assistant Medical
DX: F10.129 Alcohol abuse with intoxication, unspecified (principal); Y04.2XXA Assault by strike against or bumped into by another person, initial encounter; Y93.89 Activity, other specified; Y92.89 Other specified places as the place of occurrence of the external cause; E87.6 Hypokalemia

== ENCOUNTER 2016-12-28 04:36 | Emergency (ER) | payer MEDICAID ==
[2016-10-29 13:24] VITALS: BMI 19.4
[2016-12-28 06:03] LABS: APPEARANCE HAZY (CLEAR); BILIRUBIN NEGATIVE (NEGATIVE); COLOR YELLOW (YELLOW); GLUCOSE NEGATIVE (NEGATIVE); KETONE NEGATIVE (NEGATIVE); LEUKOCYTE ESTERASE TRACE (NEGATIVE); NITRITE NEGATIVE (NEGATIVE); PH 5.5 (5.0-6.0); PROTEIN NEGATIVE (NEGATIVE); SPECIFIC GRAVITY 1.005 (1.005-1.020); UROBILINOGEN NORMAL (NORMAL)
[2016-12-28 06:04] LABS: BACTERIA MANY /hpf (NONE SEEN); RED CELLS - URINE 0-5 /hpf (0-5); WHITE CELLS - URINE 0-5 /hpf (0-5)
[2016-12-28 06:08] LABS: UDS - AMPHET NEGATIVE QUAL (NEGATIVE); UDS - BARB NEGATIVE QUAL (NEGATIVE); UDS - BENZO POSITIVE QUAL (NEGATIVE); UDS - COCAINE NEGATIVE QUAL (NEGATIVE); UDS - METH NEGATIVE QUAL (NEGATIVE); UDS - OPIATE NEGATIVE QUAL (NEGATIVE); UDS - PCP NEGATIVE QUAL (NEGATIVE); UDS - THC NEGATIVE QUAL (NEGATIVE)
[2016-12-28 06:36] LABS: BASOPHILS 0.2 % (0-2); EOSINOPHILS 1.7 % (0-7); HEMATOCRIT 39.4 % (36.0-48.0); HEMOGLOBIN 13.6 g/dL (12-16); IMMATURE GRANULOCYTES 0.3 % (0-5); LYMPHOCYTES 39.2 % (15-50); MCHC 34.5 g/dL (31.0-37.0); MCV 92.7 fL (80.0-100.0); MEAN PLATELET VOLUME 11.4 fL (7.4-10.4); NEUTROPHILS 54.6 % (40-80); PLATELET COUNT 199 10x3/uL (130-400); RBC 4.25 10x6/uL (4.00-5.40); RDW 13.5 % (11.5-14.5); WBC 12.9 10x3/uL (4.8-10.8)
[2016-12-28 08:03] LABS: ALBUMIN 3.8 g/dL (3.4-5.0); ALKALINE PHOSPHATASE 103 U/L (46-116); ALT (SGPT) 49 U/L (10-68); CALC OSMOLALITY 277 mosm/kg (275-300); CALCIUM 8.7 mg/dL (8.5-10.1); CARBON DIOXIDE 24.1 mmol/L (21.0-32.0); CHLORIDE - SERUM 104 mmol/L (98-107); CREATININE - SERUM 0.8 mg/dL (0.6-1.3); GLUCOSE 90 mg/dL (74-106); POTASSIUM - SERUM 3.1 mmol/L (3.5-5.1); PROTEIN - SERUM 7.7 g/dL (6.4-8.2); SODIUM 140 mmol/L (136-145); UREA NITROGEN 10 mg/dL (7-18); eGFR NON AFRICAN AMERICAN 80 mL/min (90-120)
[2016-12-28 08:06] LABS: MAGNESIUM - SERUM 2.1 mg/dL (1.8-2.4); TROPONIN-I < 0.017 ng/mL (0.000-0.060)
== END 2016-12-28 09:30 | disposition home or self-care (01) ==
LOC: D.ER 04:36
PROVIDERS: Emergency Medicine
DX: R40.20 Unspecified coma (principal); G40.909 Epilepsy, unspecified, not intractable, without status epilepticus; I95.89 Other hypotension

== ENCOUNTER 2017-02-03 12:24 | Emergency (ER) | payer MEDICAID ==
[2016-10-29 13:24] VITALS: BMI 19.4
[2017-02-03 14:07] LABS: APTT 27.5 SECONDS (22.8-39.4); INR 1.04 (0.85-1.17); PROTIME 13.5 SECONDS (11.6-15.0)
[2017-02-03 14:10] LABS: ALBUMIN 3.5 g/dL (3.4-5.0); ALKALINE PHOSPHATASE 106 U/L (46-116); ALT (SGPT) 35 U/L (10-68); BILIRUBIN - TOTAL 0.26 mg/dL (0.2-1.3); CALC OSMOLALITY 286 mosm/kg (275-300); CALCIUM 8.5 mg/dL (8.5-10.1); CARBON DIOXIDE 25.5 mmol/L (21.0-32.0); CHLORIDE - SERUM 106 mmol/L (98-107); CREATININE - SERUM 0.9 mg/dL (0.6-1.3); GLUCOSE 82 mg/dL (74-106); POTASSIUM - SERUM 3.8 mmol/L (3.5-5.1); PROTEIN - SERUM 7.3 g/dL (6.4-8.2); SODIUM 143 mmol/L (136-145); UREA NITROGEN 21 mg/dL (7-18); eGFR NON AFRICAN AMERICAN 70 mL/min (90-120)
[2017-02-03 14:22] LABS: CREATINE KINASE 100 UL (21-215)
[2017-02-03 14:24] LABS: TROPONIN-I < 0.017 ng/mL (0.000-0.060)
[2017-02-03 15:04] LABS: PHENOBARBITAL 0.7 ug/mL (15.0-40.0); PHENYTOIN (DILANTIN) 0.8 ug/mL (10.0-20.0)
[2017-02-03 15:20] LABS: HEMATOCRIT 36.8 % (36.0-48.0); HEMOGLOBIN 12.9 g/dL (12-16); MCH 32.3 pg (26.0-34.0); MCHC 35.1 g/dL (31.0-37.0); MCV 92.2 fL (80.0-100.0); MEAN PLATELET VOLUME 11.6 fL (7.4-10.4); PLATELET COUNT 170 10x3/uL (130-400); RBC 3.99 10x6/uL (4.00-5.40); RDW 13.4 % (11.5-14.5); WBC 7.1 10x3/uL (4.8-10.8)
[2017-02-03 15:51] LABS: APPEARANCE CLEAR (CLEAR); BILIRUBIN NEGATIVE (NEGATIVE); COLOR YELLOW (YELLOW); GLUCOSE NEGATIVE (NEGATIVE); KETONE NEGATIVE (NEGATIVE); LEUKOCYTE ESTERASE NEGATIVE (NEGATIVE); NITRITE NEGATIVE (NEGATIVE); PROTEIN NEGATIVE (NEGATIVE); UROBILINOGEN NORMAL (NORMAL)
[2017-02-03 15:53] LABS: UDS - AMPHET NEGATIVE QUAL (NEGATIVE); UDS - BARB NEGATIVE QUAL (NEGATIVE); UDS - BENZO POSITIVE QUAL (NEGATIVE); UDS - COCAINE NEGATIVE QUAL (NEGATIVE); UDS - METH NEGATIVE QUAL (NEGATIVE); UDS - OPIATE NEGATIVE QUAL (NEGATIVE); UDS - PCP NEGATIVE QUAL (NEGATIVE); UDS - THC NEGATIVE QUAL (NEGATIVE)
[2017-02-03 15:59] LABS: LYMPHOCYTES 57 % (15-50); NEUTROPHILS 43 % (40-80); PLATELET ESTIMATE NORMAL
== END 2017-02-03 17:25 | disposition home or self-care (01) ==
LOC: D.ER 12:24
PROVIDERS: Emergency Medicine; Nurse Practitioner Family
DX: R07.89 Other chest pain (principal); R53.1 Weakness; G47.30 Sleep apnea, unspecified

== ENCOUNTER → 2017-02-26 15:42 | Outpatient (CLI) | payer MEDICAID ==
[2016-10-29 13:24] VITALS: BMI 19.4
== END | disposition home or self-care (01) ==
LOC: D.MAMMO 11:30
DX: Z12.31 Encounter for screening mammogram for malignant neoplasm of breast (principal)

== ENCOUNTER 2017-06-23 08:36 | Day surgery (SDC) | payer MEDICAID ==
[~2017-06-23] VITALS: Ht 154.9 cm; Wt 50.0 kg
[2017-06-23 09:11] VITALS: BP 117/72; Ht 154.9 cm; Wt 50.0 kg
[2017-06-23 09:40] LABS: BASOPHILS 0.4 % (0-2); EOSINOPHILS 3.5 % (0-7); LYMPHOCYTES 56.5 % (15-50); MCH 31.7 pg (26.0-34.0); MCHC 33.3 g/dL (31.0-37.0); MCV 95.1 fL (80.0-100.0); MEAN PLATELET VOLUME 11.4 fL (7.4-10.4); MONOCYTES 7.7 % (2-11); NEUTROPHILS 31.9 % (40-80); RDW 13.9 % (11.5-14.5); WBC 5.5 10x3/uL (4.8-10.8)
[2017-06-23] MEDS ORDERED: PRAVACHOL20 MG PO (09:42)
[2017-06-23] MEDS ORDERED: CYPROHEPTADINE H4 MG PO (09:43)
[2017-06-23] MEDS ORDERED: ELAVIL10 MG PO (09:43)
[2017-06-23] MEDS ORDERED: ADVIL100 M1 (09:43)
[2017-06-23] MEDS ORDERED: LOPID600 MG PO (09:44)
[2017-06-23] MEDS ORDERED: FLOVENT DI50 MCG/DIS INH (09:44)
[2017-06-23 09:59] LABS: CALC OSMOLALITY 276 mosm/kg (275-300); CALCIUM 8.6 mg/dL (8.5-10.1); CARBON DIOXIDE 30.7 mmol/L (21.0-32.0); CHLORIDE - SERUM 104 mmol/L (98-107); CREATININE - SERUM 0.8 mg/dL (0.6-1.3); GLUCOSE 103 mg/dL (74-106); SODIUM 138 mmol/L (136-145); UREA NITROGEN 16 mg/dL (7-18); eGFR NON AFRICAN AMERICAN 79 mL/min (90-120)
[2017-06-23 10:01] LABS: PLATELET COUNT 214 10x3/uL (130-400)
--- NOTE | 2017-06-23 10:25 | NUR ---
PT REC'D TO ROOM VIA STRETCHER. AWAKE, ALERT, ORIENTED. DR. GURROLA IN TO SPEAK WITH PT.
--- NOTE | 2017-06-23 10:40 | NUR ---
FULL LIQ DIET PROVIDED.
--- NOTE | 2017-06-23 11:10 | NUR ---
PT TOLERATED DIET. IV D/C'D CATH INTACT.
--- NOTE | 2017-06-23 11:20 | NUR ---
D/C INSTRUCTIONS EXPLAINED TO PT. VOICED UNDERSTANDING. COPIES OF ALL GIVEN TO PT.
--- NOTE | 2017-06-23 12:53 | NUR ---
PT UNABLE TO REACH TRANSPORTATION PERSON AT THIS TIME. D/C'D AMBULATORY TO WAITING ROOM TO AWAIT TRANSPORTATION. PT AWAKE, ALERT, ORIENTED.
--- NOTE | 2017-06-23 13:28 | OP ---
PATIENT NAME: PENNY WHITTINGTON MEDICAL RECORD: [id number] :63 LOCATION:[facility] ADMISSION DATE: SURGEON: KODY GURROLA DO DATE OF OPERATION: 06/23/2017 PROCEDURE: EGD with biopsies. INDICATIONS FOR PROCEDURE: Dysphagia, heartburn, epigastric abdominal pain, nausea, abnormal weight loss. SCOPE: Olympus video gastroscope. MEDICATIONS: Propofol 100 mg IV per anesthesia. ESTIMATED BLOOD LOSS: Minimal. COMPLICATIONS: None. FINDINGS: Informed consent was given. The patient was made comfortable with the above medication. After reaching an adequate level of sedation by slow IV push, the patient was placed on her left side. The endoscope was then advanced under direct visualization through the mouth to the second portion of the duodenum. In the upper esophagus, heterotopic gastric mucosa was visualized. This site measured approximately 1 cm in diameter. There was no abnormal appearing mucosa within the site. The middle and distal esophagus appeared normal. At the GE junction, there was mild evidence of LA class A reflux-induced esophagitis. There were no ulcerations. There was no ring or stricture noted at the GE junction. Random biopsies were taken at the GE junction to rule out Hoyos's mucosa. The endoscope was advanced beyond the GE junction into the stomach and retroflexed to view the cardia, where a very small sliding hiatal hernia was present. The fundus of the stomach appeared normal. Throughout the body and antrum and prepyloric region of the stomach, there were some random patchy areas of erythema and granularity consistent with possible gastritis. Random biopsies were taken to submit for histology and to rule out H. pylori. The endoscope was advanced beyond the pylorus into the duodenum where there was some erythema and granularity within the duodenal bulb. The endoscope was advanced into the second portion of the duodenum and this site appeared normal. The scope was then withdrawn from the patient. The patient tolerated the procedure well and there were no complications. IMPRESSION: 1. Heterotopic gastric mucosa. 2. Mild, LA class A, reflux-induced esophagitis. 3. Very small sliding hiatal hernia. 4. Possible gastritis, biopsies pending. 5. Duodenitis. PLAN AND RECOMMENDATIONS: 1. Discharge home when recovery parameters are met. 2. Follow a GERD diet and reflux precautions. 3. Continue current medications. 4. Add Zantac or ranitidine 150 mg p.o. q.h.s. and continue the pantoprazole 40 mg in the morning. 5. Further workup with radiologic studies to include a barium esophagram regarding the dysphagia, right upper quadrant ultrasound, and a gastric emptying OPERATIVE REPORT [id number] PENNY WHITTINGTON scan regarding the epigastric abdominal pain and nausea. 6. Further recommendations will be dependent on results of imaging studies. TRANSINT:[id number] Voice Confirmation ID: [id number] DOCUMENT ID: [id number] KODY GURROLA DO at 1328 CC: [id number] DICTATION DATE: 06/23/17 1010 ORTHOPAEDIC TECHNOLOGIST: 06/23/17 1143 [facility] 06/23/17 [address] [place] [address]
== END 2017-06-23 12:57 | disposition home or self-care (01) ==
LOC: D.OPS 08:36
PROVIDERS: Anesthesiology
DX: R10.13 Epigastric pain (principal); R13.10 Dysphagia, unspecified; R63.4 Abnormal weight loss; K21.0 Gastro-esophageal reflux disease with esophagitis; K44.9 Diaphragmatic hernia without obstruction or gangrene; R11.0 Nausea; Z01.812 Encounter for preprocedural laboratory examination

== ENCOUNTER → 2017-06-26 08:48 | Outpatient (CLI) | payer MEDICAID ==
[2017-06-23 09:11] VITALS: BMI 20.8
[~2017-06-26 08:48] MED LIST changes: +ADVIL100 M1; +ASMANEX0.135 GM INH; +CYPROHEPTADINE H4 MG PO; +DEPAKOTE ER500 MG PO; +ELAVIL10 MG PO; +FLOVENT DI50 MCG/DIS INH; +LOPID600 MG PO; +NASONEX NASAL S17 GM NS; +PRAVACHOL20 MG PO; +PROTONIX40 MG PO; +ROBAXIN500 MG PO
== END | disposition home or self-care (01) ==
LOC: D.RAD 08:48
DX: R13.10 Dysphagia, unspecified (principal); R10.13 Epigastric pain; R11.0 Nausea

== ENCOUNTER → 2017-07-02 08:43 | Outpatient (CLI) | payer MEDICAID ==
[2017-06-23 09:11] VITALS: BMI 20.8
== END | disposition home or self-care (01) ==
LOC: D.LAB 08:43 → D.US 09:00 → D.NM 09:30
DX: R13.10 Dysphagia, unspecified (principal); R10.13 Epigastric pain; R11.0 Nausea

== ENCOUNTER 2017-08-04 07:36 | Day surgery (SDC) | payer MEDICAID ==
[~2017-08-04] VITALS: Ht 152.4 cm; Wt 50.0 kg
--- NOTE | ~2017-08-04 | OP ---
PATIENT NAME: PENNY WHITTINGTON MEDICAL RECORD: [id number] :63 LOCATION:[facility] ADMISSION DATE: SURGEON: KODY GURROLA DO DATE OF OPERATION: 08/04/2017 PROCEDURE: Colonoscopy. INDICATIONS FOR PROCEDURE: Hematochezia. SCOPE: Olympus video pediatric colonoscope. MEDICATIONS: Propofol 250 mg IV per anesthesia. WITHDRAWAL TIME: 11 minutes. ESTIMATED BLOOD LOSS: None. COMPLICATIONS: None. FINDINGS: Informed consent was given. The patient was made comfortable with the above medication. After reaching an adequate level of sedation by slow IV push, the patient was placed on her left side. A digital rectal examination was performed and was normal. The endoscope was then advanced under direct visualization through the rectum to the cecum and into the terminal ileum briefly. The endoscope was slowly withdrawn and mucosa was carefully examined. Prep quality was fair. There were no polyps visualized on today's examination. There were no diverticula or other abnormalities. Retroflexion was performed in the rectum with visualization of grade I internal hemorrhoids without active bleeding. The endoscope was then withdrawn from the patient. The patient tolerated the procedure well and there were no complications. IMPRESSION: 1. Grade I internal hemorrhoids. 2. Otherwise, normal colonoscopy to terminal ileum. PLAN AND RECOMMENDATIONS: 1. Discharge home when recovery parameters are met. 2. High fiber diet. 3. Supplement diet with Metamucil 1-2 tablespoons daily to maintain regular, soft bowel movements. 4. Continue current medications. 5. Recall colonoscopy in 3 or 5 years based on a personal history of adenomatous polyps and a family history of colon cancer. TRANSINT:[id number] Voice Confirmation ID: [id number] DOCUMENT ID: [id number] KODY GURROLA DO at 1616 CC: [id number] DICTATION DATE: 08/04/17 1024 HIGH LIFT MULE OPERATOR: 08/04/17 1401 [facility] 08/04/17 [id number] [place] [address]
[~2017-08-04 07:36] MED LIST changes: -ASMANEX0.135 GM INH; -DEPAKOTE ER500 MG PO; -NASONEX NASAL S17 GM NS; -PROTONIX40 MG PO; -ROBAXIN500 MG PO
[2017-08-04] MEDS ORDERED: ROBAXIN500 MG PO (08:50)
[2017-08-04] MEDS ORDERED: ZANTAC150 MG PO (08:51)
[2017-08-04] MEDS ORDERED: DEPAKOTE ER500 MG PO (08:52)
[2017-08-04] MEDS ORDERED: PROTONIX40 MG PO (08:53)
[2017-08-04] MEDS ORDERED: NASONEX NASAL S17 GM NS (08:54)
[2017-08-04] MEDS ORDERED: ASMANEX0.135 GM INH (08:55)
[2017-08-04 09:01] VITALS: BP 100/71; Ht 152.4 cm; Wt 50.0 kg
[2017-08-04 09:58] LABS: HEMATOCRIT 43.1 % (36.0-48.0); HEMOGLOBIN 14.6 g/dL (12-16); MCH 32.1 pg (26.0-34.0); MCHC 33.9 g/dL (31.0-37.0); MCV 94.7 fL (80.0-100.0); MEAN PLATELET VOLUME 12.5 fL (7.4-10.4); RBC 4.55 10x6/uL (4.00-5.40); RDW 13.8 % (11.5-14.5)
[2017-08-04 10:23] LABS: CALC OSMOLALITY 277 mosm/kg (275-300); CALCIUM 9.2 mg/dL (8.5-10.1); CARBON DIOXIDE 27.9 mmol/L (21.0-32.0); CHLORIDE - SERUM 103 mmol/L (98-107); CREATININE - SERUM 0.4 mg/dL (0.6-1.3); GLUCOSE 97 mg/dL (74-106); SODIUM 139 mmol/L (136-145); UREA NITROGEN 13 mg/dL (7-18); eGFR NON AFRICAN AMERICAN > 90 mL/min (90-120)
[2017-08-04 10:24] LABS: POTASSIUM - SERUM 5.3 mmol/L (3.5-5.1)
== END 2017-08-04 11:30 | disposition home or self-care (01) ==
LOC: D.OPS 07:36
PROVIDERS: Anesthesiology
DX: K92.1 Melena (principal); J44.9 Chronic obstructive pulmonary disease, unspecified; R56.9 Unspecified convulsions; Z01.812 Encounter for preprocedural laboratory examination; K64.8 Other hemorrhoids

== ENCOUNTER 2017-08-16 19:26 | Emergency (ER) | payer MEDICAID ==
[2017-08-04 09:01] VITALS: BMI 21.5
[~2017-08-16 19:26] MED LIST changes: +ASMANEX0.135 GM INH; +DEPAKOTE ER500 MG PO; +NASONEX NASAL S17 GM NS; +PROTONIX40 MG PO; +ROBAXIN500 MG PO
[2017-08-16 20:15] LABS: BASOPHILS 0.1 % (0-2); EOSINOPHILS 1.8 % (0-7); HEMATOCRIT 41.9 % (36.0-48.0); IMMATURE GRANULOCYTES 0.1 % (0-5); LYMPHOCYTES 57.8 % (15-50); MCHC 33.4 g/dL (31.0-37.0); MCV 95.9 fL (80.0-100.0); MEAN PLATELET VOLUME 11.2 fL (7.4-10.4); MONOCYTES 4.8 % (2-11); NEUTROPHILS 35.4 % (40-80); PLATELET COUNT 211 10x3/uL (130-400); RBC 4.37 10x6/uL (4.00-5.40); RDW 13.9 % (11.5-14.5); WBC 9.9 10x3/uL (4.8-10.8)
[2017-08-16 20:29] LABS: ALBUMIN 3.7 g/dL (3.4-5.0); ALKALINE PHOSPHATASE 92 U/L (46-116); ALT (SGPT) 49 U/L (10-68); BILIRUBIN - TOTAL 0.61 mg/dL (0.2-1.3); CALC OSMOLALITY 282 mosm/kg (275-300); CALCIUM 8.2 mg/dL (8.5-10.1); CARBON DIOXIDE 29.5 mmol/L (21.0-32.0); CHLORIDE - SERUM 104 mmol/L (98-107); GLUCOSE 113 mg/dL (74-106); POTASSIUM - SERUM 3.9 mmol/L (3.5-5.1); PROTEIN - SERUM 7.8 g/dL (6.4-8.2); SODIUM 141 mmol/L (136-145); UREA NITROGEN 14 mg/dL (7-18); eGFR NON AFRICAN AMERICAN 61 mL/min (90-120)
[2017-08-16 20:40] LABS: CHOL - HDL RATIO 3.3 ratio (2.3-4.1); CHOLESTEROL, TOTAL 185 mg/dL (0-200); CKMB 0.4 U/L (0.0-3.6); CREATINE KINASE 59 UL (21-215); HDL CHOLESTEROL 56 mg/dL (32-96); LDL CHOLESTEROL 97 mg/dL (0-100); LDL-HDL RATIO 1.7 ratio (1.5-3.5); TRIGLYCERIDE 161 mg/dL (30-200)
[2017-08-16 20:41] LABS: TROPONIN-I < 0.017 ng/mL (0.000-0.060)
== END 2017-08-16 21:55 | disposition home or self-care (01) ==
LOC: D.ER 19:26
PROVIDERS: Family Medicine
DX: R07.89 Other chest pain (principal)

== ENCOUNTER → 2017-10-13 10:29 | Outpatient (CLI) | payer MEDICAID ==
[2017-08-04 09:01] VITALS: BMI 21.5
== END | disposition home or self-care (01) ==
LOC: D.RAD 10:29
DX: R13.10 Dysphagia, unspecified (principal)

== ENCOUNTER 2017-12-08 11:12 | Emergency (ER) | payer MEDICAID ==
[2017-08-04 09:01] VITALS: BMI 21.5
[2017-12-08 11:52] LABS: BASOPHILS 0.4 % (0-2); EOSINOPHILS 2.4 % (0-7); HEMATOCRIT 41.7 % (36.0-48.0); HEMOGLOBIN 14.3 g/dL (12-16); IMMATURE GRANULOCYTES 0.1 % (0-5); LYMPHOCYTES 49.7 % (15-50); MCH 31.8 pg (26.0-34.0); MCHC 34.3 g/dL (31.0-37.0); MCV 92.9 fL (80.0-100.0); MEAN PLATELET VOLUME 11.1 fL (7.4-10.4); MONOCYTES 6.3 % (2-11); NEUTROPHILS 41.1 % (40-80); PLATELET COUNT 173 10x3/uL (130-400); RBC 4.49 10x6/uL (4.00-5.40); RDW 13.5 % (11.5-14.5); WBC 7.4 10x3/uL (4.8-10.8)
[2017-12-08 12:09] LABS: ALBUMIN 3.6 g/dL (3.4-5.0); ALKALINE PHOSPHATASE 90 U/L (46-116); ALT (SGPT) 50 U/L (10-68); BILIRUBIN - TOTAL 0.27 mg/dL (0.2-1.3); CALC OSMOLALITY 273 mosm/kg (275-300); CALCIUM 9.1 mg/dL (8.5-10.1); CARBON DIOXIDE 28.2 mmol/L (21.0-32.0); CHLORIDE - SERUM 101 mmol/L (98-107); CREATININE - SERUM 0.7 mg/dL (0.6-1.3); GLUCOSE 87 mg/dL (74-106); POTASSIUM - SERUM 4.3 mmol/L (3.5-5.1); PROTEIN - SERUM 8.1 g/dL (6.4-8.2); SODIUM 137 mmol/L (136-145); UREA NITROGEN 14 mg/dL (7-18); eGFR NON AFRICAN AMERICAN > 90 mL/min (90-120)
[2017-12-08 12:19] LABS: CKMB 0.2 U/L (0.0-3.6); CREATINE KINASE 79 UL (21-215); PRO BNP 22 pg/mL (0-125)
[2017-12-08 12:22] LABS: TROPONIN-I < 0.017 ng/mL (0.000-0.060)
== END 2017-12-08 14:16 | disposition home or self-care (01) ==
LOC: D.ER 11:12
PROVIDERS: Family Medicine
DX: R07.89 Other chest pain (principal); J20.9 Acute bronchitis, unspecified; F17.200 Nicotine dependence, unspecified, uncomplicated

== ENCOUNTER → 2017-12-12 14:32 | Outpatient (CLI) | payer MEDICAID ==
[2017-08-04 09:01] VITALS: BMI 21.5
== END | disposition home or self-care (01) ==
LOC: D.CT 14:32
DX: R10.30 Lower abdominal pain, unspecified (principal); R11.0 Nausea; R19.5 Other fecal abnormalities

== ENCOUNTER 2017-12-20 22:29 | Emergency (ER) | payer MEDICAID ==
[2017-08-04 09:01] VITALS: BMI 21.5
[2017-12-20 23:39] LABS: HEMATOCRIT 35.6 % (36.0-48.0); HEMOGLOBIN 12.7 g/dL (12-16); LYMPHOCYTES 59.4 % (15-50); MCHC 35.7 g/dL (31.0-37.0); MCV 92.5 fL (80.0-100.0); NEUTROPHILS 36.4 % (40-80); PLATELET COUNT 169 10x3/uL (130-400); RBC 3.85 10x6/uL (4.00-5.40); RDW 13.7 % (11.5-14.5); WBC 9.2 10x3/uL (4.8-10.8)
[2017-12-20 23:56] LABS: ALBUMIN 3.2 g/dL (3.4-5.0); ALKALINE PHOSPHATASE 93 U/L (46-116); ALT (SGPT) 39 U/L (10-68); BILIRUBIN - TOTAL 0.13 mg/dL (0.2-1.3); CALC OSMOLALITY 282 mosm/kg (275-300); CALCIUM 8.1 mg/dL (8.5-10.1); CARBON DIOXIDE 18.9 mmol/L (21.0-32.0); CHLORIDE - SERUM 107 mmol/L (98-107); CREATININE - SERUM 0.7 mg/dL (0.6-1.3); GLUCOSE 125 mg/dL (74-106); POTASSIUM - SERUM 3.5 mmol/L (3.5-5.1); PROTEIN - SERUM 6.7 g/dL (6.4-8.2); SODIUM 141 mmol/L (136-145); UREA NITROGEN 15 mg/dL (7-18); eGFR NON AFRICAN AMERICAN > 90 mL/min (90-120)
[2017-12-21 08:25] LABS: CREATINE KINASE 177 UL (21-215)
[2017-12-21 08:34] LABS: TROPONIN-I < 0.017 ng/mL (0.000-0.060)
== END 2017-12-21 08:55 | disposition home or self-care (01) ==
LOC: D.ER 22:29
PROVIDERS: Family Medicine
DX: G40.909 Epilepsy, unspecified, not intractable, without status epilepticus (principal); I95.9 Hypotension, unspecified; F10.10 Alcohol abuse, uncomplicated; Z91.14 Patient's other noncompliance with medication regimen

== ENCOUNTER → 2018-02-02 09:08 | Outpatient (CLI) | payer MEDICAID ==
[2017-08-04 09:01] VITALS: BMI 21.5
[2018-02-02 09:34] LABS: BASOPHILS 0.2 % (0-2); EOSINOPHILS 2.1 % (0-7); HEMOGLOBIN 13.6 g/dL (12-16); IMMATURE GRANULOCYTES 0.2 % (0-5); LYMPHOCYTES 42.9 % (15-50); MCH 31.6 pg (26.0-34.0); MCHC 33.2 g/dL (31.0-37.0); MCV 95.3 fL (80.0-100.0); MEAN PLATELET VOLUME 11.1 fL (7.4-10.4); MONOCYTES 10.6 % (2-11); PLATELET COUNT 191 10x3/uL (130-400); RDW 14.3 % (11.5-14.5); WBC 8.2 10x3/uL (4.8-10.8)
== END | disposition home or self-care (01) ==
LOC: D.LAB 01-29 11:00
PROVIDERS: Internal Medicine Gastroenterology
DX: R10.9 Unspecified abdominal pain (principal); K92.1 Melena

== ENCOUNTER 2018-07-06 12:49 | Day surgery (SDC) | payer MEDICAID ==
[~2018-07-06] VITALS: Ht 152.4 cm; Wt 54.5 kg
[2018-07-06 13:11] LABS: HEMATOCRIT 42.6 % (36.0-48.0); HEMOGLOBIN 14.5 g/dL (12-16); MCH 31.7 pg (26.0-34.0); MCV 93.2 fL (80.0-100.0); MEAN PLATELET VOLUME 10.6 fL (7.4-10.4); RBC 4.57 10x6/uL (4.00-5.40); RDW 14.5 % (11.5-14.5); WBC 7.9 10x3/uL (4.8-10.8)
[2018-07-06] MEDS ORDERED: CYCLOBENZAPRINE10 MG PO (14:17)
[2018-07-06] MEDS ORDERED: OXYCODONE H5 MG/5 ML PO (14:18)
[2018-07-06] MEDS ORDERED: CARAFATE1 G PO (14:18)
[2018-07-06] MEDS ORDERED: VITAMIN D3400 UNI1 PO (14:19)
[2018-07-06] MEDS ORDERED: VENTOLIN HFA18 GM INH (14:20)
[2018-07-06] MEDS ORDERED: ADVAIR HFA 230-12 GM INH (14:21)
[2018-07-06] MEDS ORDERED: HYDROXYZINE HCL10 MG PO (14:22)
[2018-07-06] MEDS ORDERED: BENTYL10 MG PO (14:22)
[2018-07-06] MEDS ORDERED: BENADRYL25 MG PO (14:22)
[2018-07-06] MEDS ORDERED: TESSALON PERLE100 MG PO (14:23)
[2018-07-06 14:26] VITALS: BP 131/84; Ht 152.4 cm; Wt 54.5 kg
--- NOTE | 2018-07-06 15:07 | NUR ---
NO COLON PREP OBVIOUS, SOLD STOOL IN RECTAL AREA NOTED. DR. GURROLA NOTED ABORT PROCEDURE.
--- NOTE | 2018-07-06 15:20 | NUR ---
PT REC'D TO ROOM VIA STRETCHER FROM GI LAB. AWAKE, ALERT, ORIENTED. DR. GURROLA IN TO SPEAK WITH PT. WAS UNABLE TO PERFORM COLONOSCOPY DUE TO POOR PREP.
--- NOTE | 2018-07-06 15:45 | NUR ---
TOLERATED FULL LIQ DIET. IV D/C'D CATH INTACT.
--- NOTE | 2018-07-06 15:55 | NUR ---
D/C INSTRUCTIONS EXPLAINED TO PT. VOICED UNDERSTANDING. COPIES OF ALL GIVEN.
--- NOTE | 2018-07-06 16:05 | NUR ---
D/C'D HOME VIA W/C TO PRIVATE CAR.
--- NOTE | 2018-08-10 10:43 | OP ---
PATIENT NAME: PENNY SOLOMON MEDICAL RECORD: [id number] :63 LOCATION:[facility] ADMISSION DATE: SURGEON: KODY GURROLA DO DATE OF OPERATION: 07/06/2018 PROCEDURE: Attempted colonoscopy. INDICATION FOR PROCEDURE: Generalized abdominal pain and hematochezia. SCOPE: Olympus video pediatric colonoscope. MEDICATIONS: Propofol IV per anesthesia. DESCRIPTION OF PROCEDURE: Informed consent was given. The patient was made comfortable with propofol IV and placed on her left side. Once adequate sedation was reached, a digital rectal examination was performed and was normal. The endoscope was then advanced through the rectum under direct visualization. Once the endoscope was inserted into the rectum, it was evidence that the prep was completely inadequate for procedure. The endoscope was then withdrawn from the patient. The procedure was terminated. IMPRESSION: Inadequate prep for colonoscopy. The procedure was terminated. PLAN AND RECOMMENDATIONS: 1. Discharge home when recovery parameters are met. 2. Reschedule colonoscopy. TRANSINT:[id number] Voice Confirmation ID: [id number] DOCUMENT ID: [id number] KODY GURROLA DO at 1043 CC: [id number] DICTATION DATE: 08/05/18 0827 LANDSCAPE MANAGER: 08/05/18 1209 [facility] 07/06/18 [id number] [place] [address]
== END 2018-07-06 16:05 | disposition home or self-care (01) ==
LOC: D.OPS 12:49
PROVIDERS: Anesthesiology
DX: K92.1 Melena (principal); R10.84 Generalized abdominal pain

== ENCOUNTER 2018-09-14 07:52 | Day surgery (SDC) | payer MEDICAID ==
[~2018-09-14] VITALS: Ht 152.4 cm; Wt 53.1 kg
[~2018-09-14 07:52] MED LIST changes: +ADVAIR HFA 230-12 GM INH; +BENADRYL25 MG PO; +CYCLOBENZAPRINE10 MG PO; +HYDROXYZINE HCL10 MG PO; +OXYCODONE H5 MG/5 ML PO; +TESSALON PERLE100 MG PO; +VENTOLIN HFA18 GM INH; +VITAMIN D3400 UNI1 PO
[2018-09-14 08:32] LABS: BASOPHILS 0.2 % (0-2); EOSINOPHILS 1.8 % (0-7); IMMATURE GRANULOCYTES 0.1 % (0-5); LYMPHOCYTES 39.9 % (15-50); MCH 31.4 pg (26.0-34.0); MCHC 33.3 g/dL (31.0-37.0); MCV 94.1 fL (80.0-100.0); MEAN PLATELET VOLUME 10.7 fL (7.4-10.4); MONOCYTES 6.6 % (2-11); NEUTROPHILS 51.4 % (40-80); PLATELET COUNT 220 10x3/uL (130-400); RBC 4.78 10x6/uL (4.00-5.40); RDW 13.6 % (11.5-14.5); WBC 9.1 10x3/uL (4.8-10.8)
[2018-09-14 08:52] LABS: CALC OSMOLALITY 282 mosm/kg (275-300); CALCIUM 8.9 mg/dL (8.5-10.1); CARBON DIOXIDE 24.7 mmol/L (21.0-32.0); CHLORIDE - SERUM 103 mmol/L (98-107); CREATININE - SERUM 0.8 mg/dL (0.6-1.3); GLUCOSE 113 mg/dL (74-106); POTASSIUM - SERUM 3.9 mmol/L (3.5-5.1); SODIUM 141 mmol/L (136-145); UREA NITROGEN 16 mg/dL (7-18); eGFR NON AFRICAN AMERICAN 79 mL/min (90-120)
[2018-09-14 09:06] VITALS: BP 113/77; Ht 152.4 cm; Wt 53.1 kg
--- NOTE | 2018-09-14 12:50 | NUR ---
1155 PT'S RIDE HERE, RELEASED IN WC.
--- NOTE | 2018-09-14 15:08 | OP ---
PATIENT NAME: PENNY SOLOMON MEDICAL RECORD: [id number] :63 LOCATION:D.[facility] ADMISSION DATE: SURGEON: KODY GURROLA DO DATE OF OPERATION: 09/14/2018 PROCEDURE: Colonoscopy with biopsies and stool collection. INDICATIONS FOR PROCEDURE: Hematochezia and generalized abdominal pain. SCOPE: [employer] video pediatric colonoscope. MEDICATIONS: Propofol 300 mg IV per anesthesia. WITHDRAWAL TIME: 10 minutes. ESTIMATED BLOOD LOSS: Minimal. COMPLICATIONS: None. FINDINGS AND DESCRIPTION OF PROCEDURE: Informed consent was given. The patient was made comfortable with the above medication. After reaching an adequate level of sedation by slow IV push, the patient was placed on her left side. A digital rectal examination was performed and it was normal. The endoscope was then advanced under direct visualization through the rectum to the terminal ileum. The endoscope was slowly withdrawn, the mucosa was carefully examined. The prep quality was fair. There were no polyps visualized on today's examination. There was no inflammation seen within the colon, but there was question of possible infectious findings in the cecum, characterized by cobblestoning of stool on the mucosa of the cecum. After the stool was washed away, there were no obvious changes in vascularity or signs of inflammation. Cold forceps biopsies were taken from the cecum to look for any evidence of inflammation or infection. Stool was collected to submit for further studies including C. difficile toxin, fecal white blood cells, and culture. Retroflexion was performed in the rectum with visualization of grade I internal hemorrhoids without active bleeding. The patient did also have some external hemorrhoids without bleeding on the rectal examination. The endoscope was withdrawn from the patient. The patient tolerated the procedure well and there were no complications. IMPRESSION: 1. Grade I internal/external hemorrhoids without bleeding. 2. Otherwise, normal colonoscopy to terminal ileum. Cold forceps biopsies were taken from the cecum to look for inflammation/infection. PLAN AND RECOMMENDATIONS: 1. Discharge home when recovery parameters are met. 2. Follow up biopsy specimen results and stool studies. 3. Continue current medications. 4. Recall colonoscopy in approximately 3 years based on personal history of adenomatous polyps and family history of colon cancer in the patient's father. 5. Follow up in GI clinic in a few weeks to review symptoms, status post procedural findings. TRANSINT:[id number] Voice Confirmation ID: [id number] DOCUMENT ID: [id number] OPERATIVE REPORT [id number] PENNY SOLOMON,KODY Sotelo DO at 1508 CC: [id number] DICTATION DATE: 09/14/18 1030 MASTER OCEAN: 09/14/18 1050 [facility] 09/14/18 [address] [place] [id number]
== END 2018-09-14 11:55 | disposition home or self-care (01) ==
LOC: D.OPS 07:52
PROVIDERS: Anesthesiology; ATTEND Internal Medicine Gastroenterology
DX: K64.0 First degree hemorrhoids (principal); K52.9 Noninfective gastroenteritis and colitis, unspecified; Z01.812 Encounter for preprocedural laboratory examination

== ENCOUNTER 2018-11-15 18:07 | Emergency (ER) | payer MEDICAID ==
[~2018-11-15] VITALS: Ht 152.4 cm; Wt 54.5 kg
[2018-11-15 18:14] VITALS: Ht 152.4 cm; Wt 54.5 kg
[2018-11-15 18:46] LABS: BASOPHILS 0.2 % (0-2); EOSINOPHILS 2.1 % (0-7); HEMATOCRIT 37.2 % (36.0-48.0); HEMOGLOBIN 12.7 g/dL (12-16); IMMATURE GRANULOCYTES 0.2 % (0-5); LYMPHOCYTES 49.3 % (15-50); MCH 30.9 pg (26.0-34.0); MCHC 34.1 g/dL (31.0-37.0); MCV 90.5 fL (80.0-100.0); MEAN PLATELET VOLUME 10.2 fL (7.4-10.4); MONOCYTES 5.8 % (2-11); NEUTROPHILS 42.4 % (40-80); RBC 4.11 10x6/uL (4.00-5.40); RDW 13.9 % (11.5-14.5); WBC 9.3 10x3/uL (4.8-10.8)
[2018-11-15 18:51] LABS: PLATELET COUNT 274 10x3/uL (130-400)
[2018-11-15 19:03] LABS: APPEARANCE CLEAR (CLEAR); BILIRUBIN NEGATIVE (NEGATIVE); COLOR STRAW (YELLOW); GLUCOSE NEGATIVE (NEGATIVE); KETONE NEGATIVE (NEGATIVE); NITRITE NEGATIVE (NEGATIVE); PROTEIN NEGATIVE (NEGATIVE); UROBILINOGEN NORMAL (NORMAL)
[2018-11-15 19:04] LABS: INR 1.05 (0.85-1.17); PROTIME 13.2 SECONDS (11.6-15.0)
[2018-11-15 19:08] LABS: ALBUMIN 3.3 g/dL (3.4-5.0); ALKALINE PHOSPHATASE 85 U/L (46-116); ALT (SGPT) 28 U/L (10-68); BILIRUBIN - TOTAL 0.14 mg/dL (0.2-1.3); CALC OSMOLALITY 280 mosm/kg (275-300); CALCIUM 9.2 mg/dL (8.5-10.1); CARBON DIOXIDE 28.8 mmol/L (21.0-32.0); CHLORIDE - SERUM 104 mmol/L (98-107); CREATININE - SERUM 0.8 mg/dL (0.6-1.3); GLUCOSE 94 mg/dL (74-106); POTASSIUM - SERUM 3.9 mmol/L (3.5-5.1); PROTEIN - SERUM 7.5 g/dL (6.4-8.2); SODIUM 141 mmol/L (136-145); UREA NITROGEN 13 mg/dL (7-18); eGFR NON AFRICAN AMERICAN 79 mL/min (90-120)
[2018-11-15 19:20] LABS: CKMB 0.3 U/L (0.0-3.6); CREATINE KINASE 62 UL (21-215); TROPONIN-I < 0.017 ng/mL (0.000-0.060)
[2018-11-15] MEDS ORDERED: ZOFRAN ODT4 MG/UDTAB PO (22:16)
[2018-11-15] MEDS ORDERED: VOLTAREN75 MG PO (22:16)
[2018-11-15 22:41] VITALS: BP 109/64
== END 2018-11-15 22:40 | disposition home or self-care (01) ==
LOC: D.ER 18:07
PROVIDERS: Family Medicine
DX: R07.89 Other chest pain (principal); R10.31 Right lower quadrant pain

== ENCOUNTER 2019-04-21 08:32 | Day surgery (SDC) | payer MEDICAID ==
[~2019-04-21] VITALS: Ht 152.4 cm; Wt 54.9 kg
[~2019-04-21 08:32] MED LIST changes: +VOLTAREN75 MG PO; +ZOFRAN ODT4 MG/UDTAB PO
[2019-04-21 09:01] LABS: HEMATOCRIT 42.5 % (36.0-48.0); HEMOGLOBIN 14.2 g/dL (12-16); MCH 30.9 pg (26.0-34.0); MCHC 33.4 g/dL (31.0-37.0); MCV 92.4 fL (80.0-100.0); MEAN PLATELET VOLUME 10.8 fL (7.4-10.4); RBC 4.6 10x6/uL (4.00-5.40); RDW 13.8 % (11.5-14.5); WBC 8.7 10x3/uL (4.8-10.8)
[2019-04-21 10:09] VITALS: BP 111/72; Ht 152.4 cm; Wt 54.9 kg
--- NOTE | 2019-04-21 16:44 | OP ---
PATIENT NAME: PENNY SOLOMON MEDICAL RECORD: [id number] :63 LOCATION:[facility] ADMISSION DATE: SURGEON: KODY GURROLA DO DATE OF OPERATION: 04/21/2019 PROCEDURE: EGD with biopsies. INDICATIONS FOR PROCEDURE: Generalized abdominal pain, gastroparesis, GERD, nausea, diarrhea. SCOPE: Olympus video gastroscope. MEDICATIONS: Propofol 200 mg IV per anesthesia. ESTIMATED BLOOD LOSS: Minimal. COMPLICATIONS: None. FINDINGS: Informed consent was given. The patient was made comfortable with the above medication. After reaching an adequate level of sedation by slow IV push, the patient was placed on her left side. The endoscope was advanced under direct visualization through the mouth to the second portion of the duodenum. In the upper esophagus, there was some heterotopic gastric mucosa visualized. The site measured approximately 1 cm in diameter and did not appear abnormal. The main part of the esophagus revealed normal mucosa. Mid esophageal biopsies were taken with cold forceps to submit for histopathology and to rule out the presence of eosinophilic esophagitis. At the GE junction, there was mild evidence of LA class A reflux-induced esophagitis. The endoscope was advanced beyond the GE junction into the stomach and retroflexed to view the cardia, which appeared normal. The fundus of the stomach also appeared normal. Throughout the body and antrum as well as the prepyloric region of the stomach, there were some random patchy areas of erythema and granularity consistent with gastritis. Random biopsies were taken to submit for histopathology and to rule out the presence of H. pylori. The endoscope was advanced beyond the pylorus into the duodenum where there was some erythema and granularity, but otherwise appeared normal. Cold forceps biopsies were taken throughout the duodenum to submit for histopathology. The endoscope was then withdrawn from the patient. The patient tolerated the procedure well and there were no complications. IMPRESSION: 1. Heterotopic gastric mucosa (inlet patch). 2. Mild, LA class A, reflux-induced esophagitis. 3. Mild gastritis throughout the body, antrum, and prepyloric regions of the stomach. PLAN AND RECOMMENDATIONS: 1. Discharge home when recovery parameters are met. 2. GERD diet and reflux precautions. 3. Follow up biopsy specimen results. 4. Continue current medications. 5. Continue pantoprazole 40 mg daily. 6. Regarding the patient's gastroparesis, which is likely the main cause of all of her upper abdominal symptoms. We have initiated referral to Dr. Augustin for consideration of a gastric pacemaker placement. The patient has tried Reglan and did not find any relief with this medication. OPERATIVE REPORT [id number] PENNY SOLOMON 7. Follow up in GI clinic after referral with Dr. Augustin is completed. TRANSINT:[id number] Voice Confirmation ID: [id number] DOCUMENT ID: [id number] KODY GURROLA DO at 1644 CC: [id number] DICTATION DATE: 04/21/19 1123 HEALTH INFORMATION MANAGEMENT DIRECTOR: 04/21/19 1237 [facility] [place] 04/21/19 [address] [place] [address]
== END 2019-04-21 12:35 | disposition home or self-care (01) ==
LOC: D.OPS 08:32
PROVIDERS: Anesthesiology; ATTEND Internal Medicine Gastroenterology
DX: K31.84 Gastroparesis (principal); R19.7 Diarrhea, unspecified; K21.0 Gastro-esophageal reflux disease with esophagitis; K29.70 Gastritis, unspecified, without bleeding; Q40.2 Other specified congenital malformations of stomach

== ENCOUNTER 2019-05-26 14:40 | Emergency (ER) | payer MEDICAID ==
[~2019-05-26] VITALS: Ht 152.4 cm; Wt 54.1 kg
[2019-05-26 14:48] VITALS: Ht 152.4 cm; Wt 54.1 kg
[2019-05-26 15:08] LABS: BASOPHILS 0.3 % (0-2); EOSINOPHILS 1.6 % (0-7); HEMATOCRIT 38.7 % (36.0-48.0); HEMOGLOBIN 13.1 g/dL (12-16); IMMATURE GRANULOCYTES 0.3 % (0-5); LYMPHOCYTES 40.1 % (15-50); MCH 31.2 pg (26.0-34.0); MCHC 33.9 g/dL (31.0-37.0); MCV 92.1 fL (80.0-100.0); MEAN PLATELET VOLUME 10.7 fL (7.4-10.4); MONOCYTES 5.8 % (2-11); NEUTROPHILS 51.9 % (40-80); RDW 14.2 % (11.5-14.5); WBC 7.6 10x3/uL (4.8-10.8)
[2019-05-26 15:10] LABS: PLATELET COUNT 245 10x3/uL (130-400)
[2019-05-26 15:21] LABS: APTT 27.3 SECONDS (22.8-39.4); PROTIME 12.7 SECONDS (11.6-15.0)
[2019-05-26 15:28] LABS: CALC OSMOLALITY 280 mosm/kg (275-300); CALCIUM 8.7 mg/dL (8.5-10.1); CARBON DIOXIDE 25.6 mmol/L (21.0-32.0); CHLORIDE - SERUM 103 mmol/L (98-107); CREATININE - SERUM 0.8 mg/dL (0.6-1.3); GLUCOSE 108 mg/dL (74-106); POTASSIUM - SERUM 3.6 mmol/L (3.5-5.1); SODIUM 139 mmol/L (136-145); UREA NITROGEN 17 mg/dL (7-18); eGFR NON AFRICAN AMERICAN 79 mL/min (90-120)
[2019-05-26 15:45] LABS: ALBUMIN 3.4 g/dL (3.4-5.0); ALKALINE PHOSPHATASE 100 U/L (46-116); ALT (SGPT) 32 U/L (10-68); BILIRUBIN - TOTAL 0.56 mg/dL (0.2-1.3); CREATINE KINASE 56 UL (21-215); MAGNESIUM - SERUM 2.2 mg/dL (1.8-2.4); PROTEIN - SERUM 7.8 g/dL (6.4-8.2); TROPONIN-I < 0.017 ng/mL (0.000-0.060)
[2019-05-26 16:15] VITALS: BP 99/64
[2019-05-26] MEDS ORDERED: ALBUTEROL SULF8.5 GM INH (16:40)
== END 2019-05-26 16:45 | disposition home or self-care (01) ==
LOC: D.ER 14:40
PROVIDERS: Emergency Medicine
DX: R07.9 Chest pain, unspecified (principal); J44.0 Chronic obstructive pulmonary disease with (acute) lower respiratory infection

== ENCOUNTER 2020-01-24 14:19 | Inpatient (IN) | payer MEDICAID ==
[~2020-01-24] VITALS: Ht 152.4 cm; Wt 59.1 kg
[~2020-01-24 14:19] MED LIST changes: +ALBUTEROL SULF8.5 GM INH
[2020-01-24 15:26] LABS: BASOPHILS 0.2 % (0-2); EOSINOPHILS 0.6 % (0-7); HEMATOCRIT 36.4 % (36.0-48.0); HEMOGLOBIN 12.1 g/dL (12-16); IMMATURE GRANULOCYTES 0.2 % (0-5); LYMPHOCYTES 41.4 % (15-50); MCH 30.6 pg (26.0-34.0); MCHC 33.2 g/dL (31.0-37.0); MCV 92.2 fL (80.0-100.0); MEAN PLATELET VOLUME 10.9 fL (7.4-10.4); MONOCYTES 6.1 % (2-11); NEUTROPHILS 51.5 % (40-80); PLATELET COUNT 202 10x3/uL (130-400); RBC 3.95 10x6/uL (4.00-5.40); RDW 13.9 % (11.5-14.5); WBC 6.5 10x3/uL (4.8-10.8)
[2020-01-24 15:31] LABS: CALC OSMOLALITY 271 mosm/kg (275-300); CALCIUM 7.7 mg/dL (8.5-10.1); CHLORIDE - SERUM 101 mmol/L (98-107); CREATININE - SERUM 1.1 mg/dL (0.6-1.3); POTASSIUM - SERUM 3.2 mmol/L (3.5-5.1); SODIUM 134 mmol/L (136-145); UREA NITROGEN 28 mg/dL (7-18); eGFR NON AFRICAN AMERICAN 55 mL/min (90-120)
[2020-01-24 15:32] LABS: GLUCOSE 70 mg/dL (74-106)
[2020-01-24 15:42] LABS: ALBUMIN 3.4 g/dL (3.4-5.0); ALKALINE PHOSPHATASE 77 U/L (30-120); ALT (SGPT) 37 U/L (10-68); AMYLASE - SERUM 63 U/L (25-115); BILIRUBIN - TOTAL 0.37 mg/dL (0.2-1.3); LIPASE 199 U/L (73-393); PROTEIN - SERUM 7.6 g/dL (6.4-8.2); TROPONIN-I < 0.017 ng/mL (0.000-0.060)
[2020-01-24 16:17] LABS: BILIRUBIN NEGATIVE (NEGATIVE); GLUCOSE NEGATIVE (NEGATIVE); KETONE MODERATE mg/dL (NEGATIVE); NITRITE NEGATIVE (NEGATIVE); UROBILINOGEN NORMAL (NORMAL)
[2020-01-24 16:18] LABS: BACTERIA MODERATE /hpf (NEGATIVE); EPITHELIAL CELLS 0-5 /hpf (0-5); RED CELLS - URINE OCC /hpf (0-5); WHITE CELLS - URINE 0-5 /hpf (NEGATIVE)
[2020-01-24 16:30] VITALS: BP 117/76
[2020-01-24 17:15] VITALS: BP 119/81
[2020-01-24 19:37] LABS: APTT 31.7 SECONDS (22.8-39.4); INR 1.28 (0.85-1.17); PROTIME 15.9 SECONDS (11.6-15.0)
[2020-01-24 19:38] LABS: D-DIMER-QUANTITATIVE < 0.27 ug/mLFEU (0.20-0.54)
[2020-01-24 19:55] LABS: CKMB 1.5 U/L (0.0-3.6); CREATINE KINASE 213 UL (21-215)
[2020-01-24 19:56] LABS: TROPONIN-I < 0.017 ng/mL (0.000-0.060)
--- NOTE | 2020-01-24 20:49 | NUR ---
REC'D PATIENT FROM ER. NO S/S OF DISTRESS. BROUGHT PATIENT A SANDWICH AND WATER PER HER REQUEST. PATIENT DENIES OTHER NEEDS. BED IN LOWEST POSITION AND CALL LIGHT WITHIN REACH. ENCOURAGED THE PATIENT TO CALL IF SHE HAS NEEDS. WILL CONTINUE TO MONITOR.
[2020-01-24 21:55] VITALS: BP 119/73; Ht 152.4 cm; Wt 59.1 kg
[2020-01-24 23:07] VITALS: BP 104/68
[2020-01-25 02:00] LABS: CKMB 1.6 U/L (0.0-3.6); CREATINE KINASE 220 UL (21-215); TROPONIN-I < 0.017 ng/mL (0.000-0.060)
[2020-01-25 04:00] VITALS: BP 108/66
[2020-01-25 05:59] LABS: HEMATOCRIT 32.9 % (36.0-48.0); HEMOGLOBIN 10.9 g/dL (12-16); MCH 30.6 pg (26.0-34.0); MCHC 33.1 g/dL (31.0-37.0); MCV 92.4 fL (80.0-100.0); MEAN PLATELET VOLUME 11.2 fL (7.4-10.4); PLATELET COUNT 204 10x3/uL (130-400); RBC 3.56 10x6/uL (4.00-5.40); WBC 5.9 10x3/uL (4.8-10.8)
[2020-01-25 06:17] LABS: ALBUMIN 2.7 g/dL (3.4-5.0); ALKALINE PHOSPHATASE 64 U/L (30-120); ALT (SGPT) 31 U/L (10-68); BILIRUBIN - TOTAL 0.31 mg/dL (0.2-1.3); CALC OSMOLALITY 278 mosm/kg (275-300); CARBON DIOXIDE 19.4 mmol/L (21.0-32.0); CHLORIDE - SERUM 109 mmol/L (98-107); CKMB 1.6 U/L (0.0-3.6); CREATINE KINASE 207 UL (21-215); CREATININE - SERUM 0.7 mg/dL (0.6-1.3); GLUCOSE 67 mg/dL (74-106); MAGNESIUM - SERUM 2.1 mg/dL (1.8-2.4); POTASSIUM - SERUM 3.4 mmol/L (3.5-5.1); PROTEIN - SERUM 6.2 g/dL (6.4-8.2); SODIUM 139 mmol/L (136-145); TROPONIN-I < 0.017 ng/mL (0.000-0.060); UREA NITROGEN 20 mg/dL (7-18); eGFR NON AFRICAN AMERICAN > 90 mL/min (90-120)
[2020-01-25 08:45] VITALS: BP 109/69
[2020-01-25 10:23] LABS: LYMPHOCYTES 54 % (15-50); MONOCYTES 7 % (2-11); NEUTROPHILS 39 % (40-80); PLATELET ESTIMATE NORMAL
--- NOTE | 2020-01-25 10:36 | NUR ---
PT ALERT X 4. SPEECH SLURRED. BREATH SOUNDS CLEAR BILAT. IV TO LEFT FOREARM, SALINE LOCKED. PT REPORTING HEADACHE THIS MORNING, MEDICATED PER ORDERS, NO OTHER NEEDS AT THIS TIME. BED LOW, CALL LIGHT IN REACH.
[2020-01-25 14:25] VITALS: BP 117/59
[2020-01-25 18:33] VITALS: BP 121/75
[2020-01-25 20:00] VITALS: BP 128/66
--- NOTE | 2020-01-26 03:13 | NUR ---
NO TELEMETRY AVAILABLE PER [facility] MERCHANDISE MANAGER.
[2020-01-26 04:00] VITALS: BP 109/60; BP 117/68
--- NOTE | 2020-01-26 05:11 | NUR ---
I have reviewed this patient and I concur with the Shift Assessment completed by the Licensed Practical Nurse today this shift.
[2020-01-26 06:12] LABS: BASOPHILS 0.4 % (0-2); HEMOGLOBIN 11.2 g/dL (12-16); IMMATURE GRANULOCYTES 0.2 % (0-5); LYMPHOCYTES 62.3 % (15-50); MCH 30.4 pg (26.0-34.0); MCHC 32.9 g/dL (31.0-37.0); MCV 92.1 fL (80.0-100.0); MEAN PLATELET VOLUME 11.2 fL (7.4-10.4); MONOCYTES 10.2 % (2-11); NEUTROPHILS 23.9 % (40-80); PLATELET COUNT 211 10x3/uL (130-400); RBC 3.69 10x6/uL (4.00-5.40); RDW 13.9 % (11.5-14.5); WBC 5.4 10x3/uL (4.8-10.8)
[2020-01-26 06:22] LABS: ALBUMIN 3.1 g/dL (3.4-5.0); ALKALINE PHOSPHATASE 71 U/L (30-120); ALT (SGPT) 35 U/L (10-68); BILIRUBIN - TOTAL 0.25 mg/dL (0.2-1.3); CALC OSMOLALITY 278 mosm/kg (275-300); CALCIUM 7.4 mg/dL (8.5-10.1); CARBON DIOXIDE 20.4 mmol/L (21.0-32.0); CHLORIDE - SERUM 108 mmol/L (98-107); CREATININE - SERUM 0.6 mg/dL (0.6-1.3); GLUCOSE 93 mg/dL (74-106); MAGNESIUM - SERUM 2.1 mg/dL (1.8-2.4); POTASSIUM - SERUM 3.5 mmol/L (3.5-5.1); PROTEIN - SERUM 6.5 g/dL (6.4-8.2); SODIUM 139 mmol/L (136-145); UREA NITROGEN 15 mg/dL (7-18); eGFR NON AFRICAN AMERICAN > 90 mL/min (90-120)
--- NOTE | 2020-01-26 08:57 | NUR ---
PT ALERT X 4. SPEECH SLURRED. BREATH SOUNDS CLEAR BILAT. IV TO LEFT FOREARM, SALINE LOCKED. PT REPORTING HEADACHE, WILL CONTINUE TO MONITOR. BED LOW, CALL LIGHT IN REACH. NO OTHER NEEDS AT THIS TIME.
[2020-01-26 09:50] VITALS: BP 109/69
[2020-01-26 13:28] VITALS: BP 151/61
[2020-01-26 18:15] VITALS: BP 124/73
[2020-01-26 20:00] VITALS: BP 111/65
--- NOTE | 2020-01-26 20:00 | NUR ---
PT SITTING UP IN BED WITHOUT DISTRESS, AOX4. IV LEFT FA INFUSING ZITHROMAX. PT SPEECH GARBLED, FREQUENTLY ASKING PT SLOW DOWN WHILE SPEAKING TO PRONOUNCE WORDS BETTER. ONLY COMPLAINT AT THIS TIME IS HEADACHE. DENIES NEEDS. PT WALKED A COUPLE LAPS AROUND NURSES STATION. CL IN REACH, WILL CTM
[2020-01-27] VITALS: BP 76/40
[2020-01-27 04:00] VITALS: BP 126/77
[2020-01-27 05:33] LABS: HEMATOCRIT 34.5 % (36.0-48.0); HEMOGLOBIN 11.6 g/dL (12-16); MCH 31.1 pg (26.0-34.0); MCHC 33.6 g/dL (31.0-37.0); MCV 92.5 fL (80.0-100.0); MEAN PLATELET VOLUME 10.8 fL (7.4-10.4); PLATELET COUNT 208 10x3/uL (130-400); RBC 3.73 10x6/uL (4.00-5.40); RDW 13.9 % (11.5-14.5); WBC 6.4 10x3/uL (4.8-10.8)
[2020-01-27 06:07] LABS: % SATURATION 23 % (15-55); IRON 69 ug/dl (35-150); TOTAL IRON BIND CAPACITY 298 ug/dl (260-445); UNSAT IRON BIND CAPACITY 229 ug/dl (150-375)
[2020-01-27 06:17] LABS: ALBUMIN 3.2 g/dL (3.4-5.0); ALKALINE PHOSPHATASE 69 U/L (30-120); ALT (SGPT) 33 U/L (10-68); BILIRUBIN - TOTAL 0.28 mg/dL (0.2-1.3); CALC OSMOLALITY 281 mosm/kg (275-300); CALCIUM 7.7 mg/dL (8.5-10.1); CARBON DIOXIDE 23.8 mmol/L (21.0-32.0); CHLORIDE - SERUM 107 mmol/L (98-107); FERRITIN 110 ng/mL (3-244); GLUCOSE 98 mg/dL (74-106); POTASSIUM - SERUM 3.1 mmol/L (3.5-5.1); SODIUM 141 mmol/L (136-145); UREA NITROGEN 14 mg/dL (7-18); eGFR NON AFRICAN AMERICAN 79 mL/min (90-120)
[2020-01-27 06:18] LABS: CREATININE - SERUM 0.8 mg/dL (0.6-1.3)
[2020-01-27 08:00] VITALS: BP 116/66
[2020-01-27] MEDS ORDERED: MUCINEX600 MG PO (08:38)
[2020-01-27] MEDS ORDERED: TESSALON PERLE100 MG PO (08:38)
[2020-01-27] MEDS ORDERED: ZITHROMAX500 MG PO (08:39)
[2020-01-27] MEDS ORDERED: FLUTICASONE PRO16 GM NASAL (08:39)
[2020-01-27] MEDS ORDERED: SINGULAIR10 MG PO (08:39)
[2020-01-27] MEDS ORDERED: OMNICEF300 MG PO (08:39)
[2020-01-27 10:47] LABS: EOSINOPHILS 2 % (0-7); LYMPHOCYTES 54 % (15-50); MONOCYTES 8 % (2-11); NEUTROPHILS 35 % (40-80); PLATELET ESTIMATE NORMAL
--- NOTE | 2020-01-27 10:48 | MORECARE ---
CASE MANAGEMENT DISCHARGE SUMMARY PATIENT: PENNY SOLOMON UNIT: [id number] ADM DATE: 01/24/20 AGE: 54 : 63 SEX: F ROOM/BED: D.2216 AUTHOR: CESAR SY PHYSICIAN: REFERRING PHYSICIAN: VILMA HERNANDEZ MD DATE OF SERVICE: 01/27/20 Discharge Plan Patient Name: PENNY SOLOMON [facility] [facility] 1965 Planned Disposition: Home or Self Care Anticipated Discharge Date: Discharge Date: Expected LOS: Initial Reviewer: [email or web address] Initial Review Date: 01/24/2020 Generated: 01/27/20 11:47 am DCPIA - Discharge Planning Initial Assessment Updated by [email or web address]: Flor Terrell on 01/27/20 10:46 am * Is the patient Alert and Oriented? Yes * How many steps to enter\exit or inside your home? 10/28 * PCP JAYLEN AT [employer] * Pharmacy [facility] [address] * Preadmission Environment Home with Family * ADLs Independent * Equipment None * List name and contact numbers for known caregivers / representatives who currently or will assist patient after discharge: MITUL ( SPOUSE) [phone] * Verbal permission to speak to the caregivers and representatives has been obtained from the patient. N/A * Community resources currently utilized None * Additional services required to return to the preadmission environment? No * Can the patient safely return to the preadmission environment? Yes * Has this patient been hospitalized within the prior 30 days at any hospital? No Patient Name: PENNY SOLOMON Page [id number] at 1048 All edits/amendments must be made on the electronic document DICTATION DATE: 01/27/20 1047 COURTESY CAR DRIVER: MARITZA 01/27/20 1047 RPT#: [id number] DC DATE: STATUS: ADM IN [facility] [address] [place] [address] END OF REPORT
--- NOTE | 2020-01-27 10:54 | MORECARE ---
CASE MANAGEMENT DISCHARGE SUMMARY PATIENT: PENNY SOLOMON UNIT: [id number] ADM DATE: 01/24/20 AGE: 54 : 63 SEX: F ROOM/BED: D.2216 AUTHOR: CESAR SY PHYSICIAN: REFERRING PHYSICIAN: VILMA HERNANDEZ MD DATE OF SERVICE: 01/27/20 Discharge Plan Patient Name: PENNY SOLOMON Facility: [facility]:[place] : 1965 Planned Disposition: Home or Self Care Anticipated Discharge Date: Discharge Date: Expected LOS: Initial Reviewer: [email or web address] Initial Review Date: 01/24/2020 Generated: 01/27/20 11:54 am Comments DCP- Discharge Planning Updated by [email or web address]: Flor Terrell on 01/27/20 9:[address] Patient Name: PENNY SOLOMON Admission Status: ER Accout number: [id number] Admission Date: 01-24-2020 : 1965 Admission Diagnosis:PNEUMONIA, UNSPECIFIED ORGANISM Attending: VILMA ESCAMILLA Current LOS: 3 Anticipated DC Date: Planned Disposition: Home or Self Care Primary Insurance: MEDICAID [place] Discharge Planning Comments: CM met with patient to complete initial dc planning assessment. CM educated patient on the CM role and verbal consent given by patient to complete assessment. Patient lives at home with her spouse where she states she is independent with her care. At discharge patient plans to return home and feels this is a safe discharge. CM discussed availability of home health, rehab services, and medical equipment. Patient denied known discharge needs at this time. Patient states her spouse and son in law will be her tour bus driver/guide home. CM will continue to follow and will assist as needed with dc plans/needs. Policy Specialist: Flor Terrell DCPIA - Discharge Planning Initial Assessment Updated by [email or web address]: Flor Terrell on 01/27/20 10:46 am * Is the patient Alert and Oriented? Yes * How many steps to enter\exit or inside your home? 10/28 * PCP JAYLEN AT [employer] * Pharmacy [facility] [address] * Preadmission Environment Home with Family * ADLs Independent * Equipment None * List name and contact numbers for known caregivers / representatives who currently or will assist patient after discharge: MITUL ( SPOUSE) [phone] * Verbal permission to speak to the caregivers and representatives has been obtained from the patient. N/A * Community resources currently utilized None * Additional services required to return to the preadmission environment? No * Can the patient safely return to the preadmission environment? Yes * Has this patient been hospitalized within the prior 30 days at any hospital? No Last DP export: 01/27/20 9:48 am Patient Name: PENNY SOLOMON Page [phone] at 1054 All edits/amendments must be made on the electronic document DICTATION DATE: 01/27/20 1054 NEWS LIBRARIAN: MARITZA 01/27/20 1054 RPT#: [id number] DC DATE: STATUS: ADM IN [facility] [address] [place] [address] END OF REPORT
--- NOTE | 2020-01-27 12:36 | NUR ---
IV THERAPY DC'ED FROM LEFT FOREARM WITH TIP INTACT. VERBALIZED UNDERSTANDING OF DISCHARGE INSTRUCTIONS. REQUESTED AND RECEIVED COKE AND ICE. REFUSED WHEELCHAIR DOWN.
--- NOTE | 2020-01-29 09:32 | MORECARE ---
CASE MANAGEMENT DISCHARGE SUMMARY PATIENT: PENNY SOLOMON UNIT: [id number] ADM DATE: 01/24/20 AGE: 54 : 63 SEX: F ROOM/BED: D.2216 AUTHOR: CESAR SY PHYSICIAN: REFERRING PHYSICIAN: VILMA HERNANDEZ MD DATE OF SERVICE: 01/29/20 Discharge Plan Patient Name: PENNY SOLOMON Facility: [facility]:[place] : 1965 Planned Disposition: Home or Self Care Anticipated Discharge Date: Discharge Date: 01/27/2020 Expected LOS: Initial Reviewer: [email or web address] Initial Review Date: 01/24/2020 Generated: 01/29/20 10:31 am DCP- Discharge Planning Updated by [email or web address]: Flor Terrell on 01/27/20 9:[address] Patient Name: PENNY SOLOMON Admission Status: ER Accout number: [id number] Admission Date: 01-24-2020 : 1965 Admission Diagnosis:PNEUMONIA, UNSPECIFIED ORGANISM Attending: VILMA ESCAMILLA Current LOS: 3 Anticipated DC Date: Planned Disposition: Home or Self Care Primary Insurance: MEDICAID [place] Discharge Planning Comments: CM met with patient to complete initial dc planning assessment. CM educated patient on the CM role and verbal consent given by patient to complete assessment. Patient lives at home with her spouse where she states she is independent with her care. At discharge patient plans to return home and feels this is a safe discharge. CM discussed availability of home health, rehab services, and medical equipment. Patient denied known discharge needs at this time. 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 CM will continue to follow and will assist as needed with dc plans/needs. Instrument Repair Supervisor: Flor Terrell DCPIA - Discharge Planning Initial Assessment Updated by [email or web address]: Flor Terrell on 01/27/20 10:46 am * Is the patient Alert and Oriented? Yes * How many steps to enter\exit or inside your home? 10/28 * PCP JAYLEN AT [employer] * Pharmacy [facility] [address] * Preadmission Environment Home with Family * ADLs Independent * Equipment None * List name and contact numbers for known caregivers / representatives who currently or will assist patient after discharge: MITUL ( SPOUSE) [phone] * Verbal permission to speak to the caregivers and representatives has been obtained from the patient. N/A * Community resources currently utilized None * Additional services required to return to the preadmission environment? No * Can the patient safely return to the preadmission environment? Yes * Has this patient been hospitalized within the prior 30 days at any hospital? No Last DP export: 01/27/20 9:54 am Patient Name: PENNY SOLOMON Page [phone] at 0932 All edits/amendments must be made on the electronic document DICTATION DATE: 01/29/20931 LEARNING AND DEVELOPMENT ASSOCIATE: MARITZA 01/29/20931 RPT#: [id number] DC DATE:01/27/20 STATUS: DIS IN [facility] [address] [place] [address] END OF REPORT
[2020-01-29 15:10] LABS: IMMUNOGLOBULIN E 121 IU/mL (6-495)
--- NOTE | 2020-01-31 08:06 | EC ---
PATIENT:PENNY SOLOMON DATE OF SERVICE: 01/24/20 SEX: F MEDICAL RECORD: [id number] DATE OF : 63 LOCATION:D.MS Sen AGE OF PATIENT: 54 ADMISSION DATE: 01/24/20 REFERRING PHYSICIAN: INTERPRETING PHYSICIAN: BALTAZAR BRAND MD ECHOCARDIOGRAM REPORT ECHO CHARGES 4 ECHO COMPLETE Date: 01/25/20 CLINICAL DIAGNOSIS: DYSPNEA ECHOCARDIOGRAPHIC MEASUREMENTS (adult normal given) AC root (d.<3.7cm) 2.5 cm LV Septum d (<1.2 cm> 0.7 cm Valve Excursion 0.6 cm LV Septum (systole) 1.1 cm Left Atria (s.<4.0cm> 2.1 cm LVPW d(<1.2cm) 0.8 cm RV (d.<2.3cm) 2.0 cm LVPW (sytole) 1.5 cm LV diastole(<5.6CM) 4.5 cm MV E-F(>70mm/sec) cm LV systole 2.7 cm LVOT Diameter 1.6 cm MV exc.(>10mm) cm Est.ejection fraction (50-75%) % DOPPLER: LVIT cm/sec A 71 cm/sec E 110 cm/sec LA cm/sec RVSP 20.4 mmHg LVOT 88 cm/sec AOP1/2T m/s Asc. Ao 159 cm/sec RVOT 58 cm/sec RA cm/sec PA 89 cm/sec AV Gradient Peak 10.1 mmHg AV Mean 5.2 mmHg AV Area 1.2 cm MV Gradient Peak 3.9 mmHg MV Mean 2.4 mmHg MV Area cm COMMENTS: Security Shift Supervisor: Ginger [facility] Insurance Adjustor: 3 Dr. Hernandez TAPE# PACS Pericardial Effusion N DATE OF SERVICE: Adequate 2D, color-flow imaging, spectral Doppler, and M-Mode No LVH. LV internal dimension is normal. Wall motion is normal. EF is greater than or equal to 55%. Aortic valve is tricuspid. No evidence of stenosis by Doppler interrogation. Left atrium is normal at 2.1 cm. Mitral valve shows no prolapse. Trace MR. Right-sided chambers are grossly normal. Trace TR. TRANSINT:[id number] Voice Confirmation ID: [id number] DOCUMENT ID: [id number] ECHOCARDIOGRAM REPORT [id number] COSTABEAU,BALTAZAR ROCA MD at 0806 CC: [id number] DICTATION DATE: 01/26/20 1040 INSURANCE LEGAL ASSISTANT: 01/26/20 1446 DIS IN 01/27/20 [place] [id number] [place] [id number]
== END 2020-01-27 14:29 | disposition home or self-care (01) | DRG 178 ==
LOC: D.ER 14:19 → D.MS 17:56 → D.SDCHOLD 01-27 09:19 → D.MS 01-27 09:19
PROVIDERS: Family Medicine; Internal Medicine Pulmonary Disease; ADMIT Family Medicine Adult Medicine; ATTEND Family Medicine Adult Medicine
DX: J69.0 Pneumonitis due to inhalation of food and vomit (principal); N39.0 Urinary tract infection, site not specified; E87.1 Hypo-osmolality and hyponatremia; J44.1 Chronic obstructive pulmonary disease with (acute) exacerbation; E87.6 Hypokalemia; G40.909 Epilepsy, unspecified, not intractable, without status epilepticus; K21.9 Gastro-esophageal reflux disease without esophagitis; D64.9 Anemia, unspecified; Z87.891 Personal history of nicotine dependence

== ENCOUNTER 2020-02-24 09:51 | Emergency (ER) | payer MEDICAID ==
[~2020-02-24] VITALS: Ht 152.4 cm; Wt 54.5 kg
[~2020-02-24 09:51] MED LIST changes: +FLUTICASONE PRO16 GM NASAL; +MUCINEX600 MG PO; +OMNICEF300 MG PO; +SINGULAIR10 MG PO; +ZITHROMAX500 MG PO
[2020-02-24 09:55] VITALS: Ht 152.4 cm; Wt 54.5 kg
[2020-02-24 10:27] LABS: BASOPHILS 0.3 % (0-2); EOSINOPHILS 2.9 % (0-7); HEMATOCRIT 40.4 % (36.0-48.0); HEMOGLOBIN 13.6 g/dL (12-16); IMMATURE GRANULOCYTES 0.1 % (0-5); LYMPHOCYTES 43.5 % (15-50); MCH 31.1 pg (26.0-34.0); MCHC 33.7 g/dL (31.0-37.0); MCV 92.2 fL (80.0-100.0); MEAN PLATELET VOLUME 10.4 fL (7.4-10.4); MONOCYTES 6.3 % (2-11); NEUTROPHILS 46.9 % (40-80); RBC 4.38 10x6/uL (4.00-5.40); RDW 13.6 % (11.5-14.5); WBC 7.3 10x3/uL (4.8-10.8)
[2020-02-24 10:32] LABS: PLATELET COUNT 270 10x3/uL (130-400)
[2020-02-24 10:37] LABS: CALC OSMOLALITY 280 mosm/kg (275-300); CALCIUM 8.8 mg/dL (8.5-10.1); CARBON DIOXIDE 21.9 mmol/L (21.0-32.0); CHLORIDE - SERUM 102 mmol/L (98-107); CREATININE - SERUM 0.8 mg/dL (0.6-1.3); GLUCOSE 107 mg/dL (74-106); POTASSIUM - SERUM 3.2 mmol/L (3.5-5.1); SODIUM 138 mmol/L (136-145); UREA NITROGEN 26 mg/dL (7-18); eGFR NON AFRICAN AMERICAN 79 mL/min (90-120)
[2020-02-24 10:42] LABS: ALBUMIN 3.9 g/dL (3.4-5.0); ALKALINE PHOSPHATASE 106 U/L (30-120); ALT (SGPT) 25 U/L (10-68); BILIRUBIN - TOTAL 1.17 mg/dL (0.2-1.3); PROTEIN - SERUM 9.1 g/dL (6.4-8.2)
[2020-02-24 11:05] LABS: CREATINE KINASE 82 UL (21-215); PRO BNP 66 pg/mL (0-125)
[2020-02-24 11:13] LABS: TROPONIN-I < 0.017 ng/mL (0.000-0.060)
[2020-02-24 11:17] LABS: GLUCOSE NEGATIVE (NEGATIVE); KETONE 2+ mg/dL (NEGATIVE); NITRITE NEGATIVE (NEGATIVE); UROBILINOGEN 8 mg/dL (NORMAL)
[2020-02-24 11:18] LABS: BILIRUBIN NEGATIVE (NEGATIVE)
[2020-02-24 11:19] LABS: BACTERIA FEW /hpf (NEGATIVE); RED CELLS - URINE 0-5 /hpf (0-5); WHITE CELLS - URINE 0-5 /hpf (NEGATIVE)
[2020-02-24 12:45] VITALS: BP 123/86
== END 2020-02-24 11:45 | disposition home or self-care (01) ==
LOC: D.ER 09:51
PROVIDERS: Emergency Medicine
DX: R07.89 Other chest pain (principal); K21.9 Gastro-esophageal reflux disease without esophagitis; R06.81 Apnea, not elsewhere classified; J45.909 Unspecified asthma, uncomplicated

== ENCOUNTER 2020-11-18 18:32 | Observation (INO) | payer MEDICAID ==
[~2020-11-18] VITALS: Ht 157.5 cm; Wt 51.0 kg
[~2020-11-18 18:32] MED LIST changes: +BAYER CHEWABLE81 MG PO; +CLARITIN 10 MG10 MG PO; +ELAVIL25 MG PO; +FEXMID7.5 MG PO; +PLAVIX75 MG PO; +PROPRANOLOL HCL20 MG PO; +REGLAN5 MG PO; +TOPAMAX50 MG PO
[2020-11-18 19:04] LABS: HEMATOCRIT 38.1 % (36.0-48.0); HEMOGLOBIN 12.6 g/dL (12-16); LYMPHOCYTE ABS# 3.96 10x3/uL (1.18-3.74); MCH 30.4 pg (26.0-34.0); MCHC 33.1 g/dL (31.0-37.0); MEAN PLATELET VOLUME 10.7 fL (7.4-10.4); NEUTROPHIL ABS# 3.14 10x3/uL (1.56-6.13); RBC 4.14 10x6/uL (4.00-5.40); RDW 14.8 % (11.5-14.5); WBC 7.9 10x3/uL (4.8-10.8)
[2020-11-18 19:05] LABS: PLATELET COUNT 279 10x3/uL (130-400)
[2020-11-18 19:14] LABS: APTT 27.7 SECONDS (22.8-39.4); INR 1.19 (0.85-1.17)
[2020-11-18 19:25] LABS: EOSINOPHILS 3 % (0-7); LYMPHOCYTES 47 % (15-50); MONOCYTES 6 % (2-11); NEUTROPHILS 44 % (40-80); PLATELET ESTIMATE NORMAL
[2020-11-18 19:27] LABS: CALC OSMOLALITY 282 mosm/kg (275-300); CALCIUM 9.2 mg/dL (8.5-10.1); CARBON DIOXIDE 23.2 mmol/L (21.0-32.0); CHLORIDE - SERUM 105 mmol/L (98-107); CREATININE - SERUM 0.9 mg/dL (0.6-1.3); GLUCOSE 102 mg/dL (74-106); POTASSIUM - SERUM 3.2 mmol/L (3.5-5.1); SODIUM 141 mmol/L (136-145); UREA NITROGEN 18 mg/dL (7-18); eGFR NON AFRICAN AMERICAN 69 mL/min (90-120)
[2020-11-18 19:47] LABS: ALBUMIN 4.3 g/dL (3.4-5.0); ALKALINE PHOSPHATASE 101 U/L (30-120); ALT (SGPT) 21 U/L (10-68); C-REACTIVE PROTEIN < 0.2 mg/dL (0.0-0.9); MAGNESIUM - SERUM 2.2 mg/dL (1.8-2.4); PRO BNP 148 pg/mL (0-125); PROTEIN - SERUM 8.1 g/dL (6.4-8.2); TROPONIN-I < 0.017 ng/mL (0.000-0.060)
[2020-11-18 20:34] VITALS: BP 120/52
--- NOTE | 2020-11-18 21:52 | NUR ---
PT ARRIVED VIA W/C. NO DISTRESS NOTED.
[2020-11-18] MEDS ORDERED: ZOFRAN4 MG PO (22:23)
[2020-11-18] MEDS ORDERED: FLUTICASONE PRO16 GM NASAL (22:27)
[2020-11-18 22:45] VITALS: BP 134/80; Ht 157.5 cm; Wt 51.0 kg
[2020-11-18 22:51] LABS: CHOL - HDL RATIO 5.4 ratio (2.3-4.1); LDL-HDL RATIO 3.4 ratio (1.5-3.5)
--- NOTE | 2020-11-18 23:18 | NUR ---
ADMISSION ASSESSMENT, HISTORY AND HOME MED LIST COMPLETD. PT DENIED ANY DISCOMFORT. IV TO LFA WITH NS AT 50CC/HR. IV PATENT. LUNGS DIMINISHED IN BASES BILAT. EXPLAINED RATIONALE FOR NPO AFTER MIDNIGHT. PT STATED UNDERSTANDING. SR UP X2, CALL LIGHT WITHIN REACH.
[2020-11-19 02:02] LABS: CKMB 0.4 U/L (0.0-3.6); CREATINE KINASE 90 UL (21-215); TROPONIN-I < 0.017 ng/mL (0.000-0.060)
[2020-11-19 03:15] VITALS: BP 164/87
--- NOTE | 2020-11-19 03:52 | NUR ---
PT RESTING WITH EYES CLOSED. RESP EVEN AND REGULAR. SR UP X1, CALL LIGHT WITHIN REACH.
[2020-11-19 05:10] LABS: BILIRUBIN NEGATIVE (NEGATIVE); KETONE NEGATIVE (NEGATIVE); NITRITE NEGATIVE (NEGATIVE); UROBILINOGEN NORMAL mg/dL (< 2)
[2020-11-19 06:06] LABS: BASOPHILS 0.5 % (0-2); EOSINOPHILS 4.3 % (0-7); HEMATOCRIT 36.4 % (36.0-48.0); IMMATURE GRANULOCYTES 0.2 % (0-5); LYMPHOCYTE ABS# 2.01 10x3/uL (1.18-3.74); LYMPHOCYTES 34.2 % (15-50); MCH 30.1 pg (26.0-34.0); MCV 91.2 fL (80.0-100.0); MONOCYTES 6.8 % (2-11); NEUTROPHIL ABS# 3.18 10x3/uL (1.56-6.13); PLATELET COUNT 266 10x3/uL (130-400); RBC 3.99 10x6/uL (4.00-5.40); RDW 14.9 % (11.5-14.5)
--- NOTE | 2020-11-19 06:09 | NUR ---
VSS THROUGHOUT NIGHT. SR PER CM. PT DENIED ANY DISCOMFORT. NPO UNTIL SEEN BY CARDIOLOGY. NEEDS MET; WILL CONTINUE TO MONITOR.
[2020-11-19 06:10] LABS: WBC 5.9 10x3/uL (4.8-10.8)
[2020-11-19 06:47] LABS: CKMB 0.6 U/L (0.0-3.6); CREATINE KINASE 89 UL (21-215); TROPONIN-I < 0.017 ng/mL (0.000-0.060)
--- NOTE | 2020-11-19 07:00 | NUR ---
RECEIVED REPORT. ASSUMED CARE OF PATIENT. RESTING IN BED WITH EYES CLOSED. RESP EVEN AND UNLABORED. WHITE BOARD UPDATED, BEDSIDE SHIFT REPORT COMPLETE. CALL LIGHT WITHIN REACH. NO DISTRESS.
[2020-11-19 07:27] LABS: CALC OSMOLALITY 280 mosm/kg (275-300); CALCIUM 8.5 mg/dL (8.5-10.1); CHLORIDE - SERUM 108 mmol/L (98-107); CREATININE - SERUM 0.7 mg/dL (0.6-1.3); GLUCOSE 115 mg/dL (74-106); MAGNESIUM - SERUM 2.4 mg/dL (1.8-2.4); PHOSPHOROUS 3.5 mg/dL (2.5-4.9); SODIUM 140 mmol/L (136-145); UREA NITROGEN 15 mg/dL (7-18); eGFR NON AFRICAN AMERICAN > 90 mL/min (90-120)
[2020-11-19 07:28] LABS: POTASSIUM - SERUM 3.9 mmol/L (3.5-5.1)
[2020-11-19 08:27] VITALS: BP 121/77
--- NOTE | 2020-11-19 10:35 | NUR ---
NEW ORDERS FOR IMDUR PLACED AT THIS TIME. NO DISTRESS.
[2020-11-19 12:10] VITALS: BP 118/68
[2020-11-19 12:16] LABS: CKMB 0.5 U/L (0.0-3.6); CREATINE KINASE 81 UL (21-215)
[2020-11-19 12:17] LABS: TROPONIN-I < 0.017 ng/mL (0.000-0.060)
--- NOTE | 2020-11-19 13:35 | NUR ---
PATIENT COMPLAINING OF HEADACHE. RECENTLY STARTED ON IMDUR 30. BP 92/57, DROP IN WHAT PATIENTS BP USUALLY RUNS. IV FLUIDS INFUSING ORDERED, PATIENT CONSUMING ORAL INTAKE WELL. ENCOURAGED PATIENT TO LYE HEAD OF BED BACK TO HELP BP INCREASE. REGULAR COKE PROVIDED UPON REQUEST AT THIS TIME.
--- NOTE | 2020-11-19 13:53 | CN ---
PATIENT NAME:PENNY SOLOMON MEDICAL RECORD: [id number] : 63 LOCATION:D. D.2122 ADMIT DATE: 11/18/20 ACCOUNT: [id number] CONSULTING PHYSICIAN: ESTHELA KIRAN MD REFERRING PHYSICIAN: HERLINDA VO MD DATE OF CONSULTATION: 11/19/2020 HISTORY OF PRESENT ILLNESS: The patient is a 55-year-old female with history of atherosclerotic heart disease, PCI stents, COPD, who presented with complaints of chest pain/discomfort -- nonexertional in nature. The patient denies PND, orthopnea, presyncopal or syncopal symptoms. I am asked to evaluate from a cardiovascular standpoint. PAST MEDICAL HISTORY: significant for, 1. Atherosclerotic heart disease. 2. History of PCI/stents. 3. Chest pain/discomfort, atypical feature/nonexertional. 4. COPD. 5. Hyperlipidemia. 6. Hypertension. MEDICATIONS: 1. Pravachol 10 mg daily. 2. Inderal 20 mg b.i.d. 3. Topamax 50 mg b.i.d. 4. Plavix 75 mg daily. 5. Aspirin 81 mg daily. 6. Depakote 500 mg b.i.d. 7. Protonix 40 mg daily. 8. Albuterol inhaler. PHYSICAL EXAMINATION: GENERAL: Very pleasant, middle-aged white female in no apparent distress. VITAL SIGNS: Blood pressure 120/70, pulse 70s (regular). HEENT: Sclerae are clear; conjunctivae pink. NECK: Supple. No appreciated JVD. HEART: Regular rhythm and rate without appreciated murmurs, gallops, or rubs. LUNGS: Mild wheezing and rhonchi bilaterally. ABDOMEN: Benign. EXTREMITIES: Negative for edema. NEUROLOGIC: Nonfocal. LABORATORY DATA: EKG, normal sinus rhythm, no acute ST-T wave changes. LABORATORY DATA: Sodium 140, potassium is 3.9, BUN 15, and creatinine 0.7. White blood cell count 5.9, hemoglobin and hematocrit 12 and 36.4, and platelet count is 266. Troponin 0.017 (negative). ASSESSMENT AND PLAN: 1. Atherosclerotic heart disease. 2. History of PCI/stent. 3. Chest pains/discomfort -- nonexertional -- atypical features. 4. COPD. 5. Hypertension. 6. Hyperlipidemia. CONSULT REPORT [id number] PENNY SOLOMON PLAN: There is no evidence of acute cardiac event/decompensation at this time. Continue current medication regimen at this time with addition of Imdur 30 mg p.o. daily. No further cardiac workup indicated at this time. Further recommendations clinically indicated. Thank you for allowing me to participate in the care of this patient. TRANSINT:[id number] Voice Confirmation ID: [id number] DOCUMENT ID: [id number] ESTHELA KIRAN MD at 1353 CC: [id number] DICTATION DATE: 11/19/20 1037 MANAGER ELIGIBILITY: 11/19/20 1048 ADM IN [facility] [address] [place] [id number]
[2020-11-19 16:06] VITALS: BP 104/62
--- NOTE | 2020-11-19 16:09 | NUR ---
MEDICATED FOR HEADACHE AT THIS TIME. NO DISTRESS.
--- NOTE | 2020-11-19 17:41 | NUR ---
PATIENT DISCONNECTED FROM IV FLUIDS TO AMBULATE ON UNIT AND ASKED PATIENT TO STAY ON UNIT AND PATIENT AGREED. NOW PATIENT SEEN LEAVING UNIT.
[2020-11-19 22:24] VITALS: BP 122/68
--- NOTE | 2020-11-19 23:09 | NUR ---
INITIAL ROUNDS COMPLETED AT 1915 HRS. PT DENIED ANY DISCOMFORT. ASSESSMENT COMPLETED AT 2004 HRS. SR PER CM HR 73. ALERT AND ORIENTED TO PERSON, PLACE AND TIME. ANDERSON. PALPABLE PERIPHERAL PULSES. IV TO L FA WITH NS AT 50CC/HR. IV PATENT. PM MEDS GIVEN PER ORDERS. PT CURRENTLY WATCHING TV. CALL LIGHT WITHIN REACH.
--- NOTE | 2020-11-20 01:14 | NUR ---
PTAWAKE; DENIES ANY DISCOMFORT. CALL LIGHT WITHIN REACH.
--- NOTE | 2020-11-20 03:44 | NUR ---
PT RESTING WITH EYES CLOSED. RESP EVEN AND REGULAR. CALL LIGHT WITHIN REACH.
[2020-11-20 05:22] VITALS: BP 105/53
--- NOTE | 2020-11-20 06:23 | NUR ---
VSS THROUGHOUT NIGHT. SR PER CM. PT RESTED WELL DURING SHIFT. NEEDS MET; WILL CONTINUE TO MONITOR.
--- NOTE | 2020-11-20 07:00 | NUR ---
RECEIVED REPORT. ASSUMED CARE OF PATIENT. PATIENT RESTING IN BED WITH EYES OPEN, RESP EVEN AND UNLABORED. CALL LIGHT WITHIN REACH. WHITE BOARD UPDATED, BEDSIDE SHIFT REPORT COMPLETE. NO DISTRESS.
[2020-11-20 07:57] LABS: HEMOGLOBIN 11.4 g/dL (12-16); LYMPHOCYTE ABS# 3.67 10x3/uL (1.18-3.74); MCH 29.8 pg (26.0-34.0); MCHC 32.6 g/dL (31.0-37.0); MCV 91.4 fL (80.0-100.0); MEAN PLATELET VOLUME 11.1 fL (7.4-10.4); NEUTROPHIL ABS# 2.03 10x3/uL (1.56-6.13); PLATELET COUNT 269 10x3/uL (130-400); RBC 3.83 10x6/uL (4.00-5.40); RDW 14.9 % (11.5-14.5); WBC 6.5 10x3/uL (4.8-10.8)
[2020-11-20 08:10] LABS: CALC OSMOLALITY 284 mosm/kg (275-300); CALCIUM 8.1 mg/dL (8.5-10.1); CHLORIDE - SERUM 112 mmol/L (98-107); CREATININE - SERUM 0.8 mg/dL (0.6-1.3); GLUCOSE 109 mg/dL (74-106); MAGNESIUM - SERUM 2.4 mg/dL (1.8-2.4); POTASSIUM - SERUM 3.8 mmol/L (3.5-5.1); SODIUM 142 mmol/L (136-145); UREA NITROGEN 15 mg/dL (7-18); eGFR NON AFRICAN AMERICAN 78 mL/min (90-120)
[2020-11-20 08:11] LABS: PHOSPHOROUS 2.3 mg/dL (2.5-4.9)
[2020-11-20 08:15] LABS: EOSINOPHILS 4 % (0-7); LYMPHOCYTES 45 % (15-50); NEUTROPHILS 51 % (40-80); PLATELET ESTIMATE NORMAL
[2020-11-20] MEDS ORDERED: ISOSORBIDE MONO30 M1 PO (12:16)
--- NOTE | 2020-11-20 14:06 | NUR ---
PROOFING MACHINE OPERATOR REMOVED AND RETURNED TO ICU CHRONOMETER ASSEMBLER 20 GAUGE IV REMOVED FROM LEFT FOREARM, CATHETER TIP INTACT, PRESSURE HELD TO MINIMIZE BLEEDING, 2X2 GAUZE APPLIED AND SECURED WITH BANDAID. PATIENT TOLERATED IV REMOVAL WELL DISCHARGE INSTRUCTIONS PROVIDED TO PATIENT, PATIENT VERBALIZED UNDERSTANDING OF ALL INSTRUCTIONS PROVIDED. PATIENT IS NOW WAITING ON FAMILY TO ARRIVE TO TRANSPORT TO HOME. NO DISTRESS.
--- NOTE | 2020-11-20 14:50 | NUR ---
PATIENT LEFT UNIT BY WHEELCHAIR WITH ALL PERSONAL BELONGINGS. NO DISTRESS UPON LEAVING UNIT. PATIENT DISCHARGED TO HOME WITH FAMILY.
== END 2020-11-20 14:52 | disposition home or self-care (01) ==
LOC: D.ER 18:32 → D.M2 20:27 → OBSVTIME 20:27 → D.M2 20:27
PROVIDERS: Family Medicine; ADMIT Family Medicine; ATTEND Family Medicine
DX: R07.9 Chest pain, unspecified (principal); I25.10 Atherosclerotic heart disease of native coronary artery without angina pectoris; Z86.73 Personal history of transient ischemic attack (TIA), and cerebral infarction without residual deficits; E78.5 Hyperlipidemia, unspecified; J44.9 Chronic obstructive pulmonary disease, unspecified; K21.9 Gastro-esophageal reflux disease without esophagitis; M19.90 Unspecified osteoarthritis, unspecified site; G40.909 Epilepsy, unspecified, not intractable, without status epilepticus; G89.29 Other chronic pain; E87.6 Hypokalemia

== ENCOUNTER 2020-11-21 17:00 | Outpatient (CLI) | payer MEDICAID ==
[2020-11-18 22:45] VITALS: BMI 20.5
[~2020-11-21 17:00] MED LIST changes: +ISOSORBIDE MONO30 M1 PO; +ZOFRAN4 MG PO
== END 2020-11-21 23:59 | disposition home or self-care (01) ==
LOC: D.MAMMO 17:00
PROVIDERS: ATTEND Family Medicine
DX: N63.0 Unspecified lump in unspecified breast (principal)